=== PATIENT | female | born 1955 | race Hispanic/Latino ===

== ENCOUNTER 2021-03-10 08:33 | Emergency (ER) | payer OTHER ==
--- OUTSIDE RECORDS SUMMARY | 2021-03-10 08:37 | XMS REPORT | Continuity of Care Document ---
:1955 Author Organization [facility] t Address [address] [place] [address] [address] [place] [address] Care Team Providers Name Role Phone Ari Cerrato Attending Clinician [phone] JAMES HARDING Attending Clinician Unavailable Problems This patient has no known problems. Allergies, Adverse Reactions, Alerts Allergy Allergy Status Severity Reaction(s) Onset Inactive Treating Comm ents Source Name Type Date Date Clinician Guero Wheeler [facility] Medical reaction 00 Center s Social History Social Habit Start Date Stop Date Quantity Comments Source History SDOH [facility] - Alcohol Std Dr[facility] - Alcohol Binge Medical Kendra ter Sex Assigned At [facility] Tobacco use and 2019-10-14 2019-10-[address] [facility] - exposure 00:00:00 00:00:00 [facility] Alcohol intake 2019-10-14 2019-10-14 [facility] non-drinker of Medical Ce nter alcohol (finding) History SDOH 2019-10-14 2019-10-[address] [facility] - Alcohol Frequency 00:00:00 00:00:00 [facility] Smoking Status Start Date Stop Date Source Never smoker [facility] Medications This patient has no known medications. Procedures This patient has no known procedures. Plan of Care Planned Activity Planned Date Details Comments Source Future Scheduled 2020-05-24 INFLUENZA VACCINE (#1) [facility] Test 00:00:00 [code = INFLUENZA Medical Ce nter VACCINE (#1)] Future Scheduled 2019 PNEUMOCOCCAL 65+ YRS [facility] - Test 00:00:00 (1 of 1 - Medical Center [id number] PCV13) [code = PNEUMOCOCCAL 65+ YRS (1 of 1 - [id number] PCV13)] Future Scheduled 2009-02-[address] [facility] - Test 00:00:00 WELLNESS (YEAR 2 or Medical Center FIRST YEAR if no IPPE) [code = MEDICARE ANNUAL WELLNESS (YEAR 2 or FIRST YEAR if no IPPE)] Future Scheduled [address] [facility] - Test 00:00:00 (procedure) [code = [facility] [id number]] Future Scheduled [address] [facility] - Test 00:00:00 [facility] cervix (procedure) [code = 059975497] Future Scheduled [address] [facility] - Test 00:00:00 [facility] breast (procedure) [code = 414666515] Future Scheduled [address] [facility] - Test 00:00:00 [facility] colon (procedure) [code = 512699704] Encounters Start End Encounter Admission Attending Care Care Encounter Source Date/Time Date/Time Type Type Clinicians Facility Department ID 2020-11-29 2020-11-29 Outpatient Saqib [facility] [id number] 00:00:00 00:00:00 Josué [id number] Ari [id number] 2020-11-15 2020-11-15 Outpatient Saqib [facility] [id number] 00:00:00 00:00:00 Josué [id number] Ari [id number] 2020-11-08 2020-11-08 Outpatient U [facility] CAR [id number] [facility] 09:12:00 09:12:00 2020-10-17 2020-10-17 Outpatient Saqib [facility] [id number] 00:00:00 00:00:00 Josué [id number] Ari [id number] Results Test Description Test Time Test Comments Results Result Comments Source RAPID INFLUENZA A&B SCREEN 2019-10-14 10:58:00 Test Item Value Reference Range Interpretation Comme nts RAPID INFLUENZA A AG (BEAKER) (test code = 1622) Negative Negative, Inconclusive RAPID INFLUENZA B AG (BEAKER) (test code = 1623) Negative Negative, Inconclusive
--- NOTE | 2021-03-10 09:52 | EDPHYS ---
Physician Documentation [facility] Name: Katerine Izaguirre Age: 65 yrs Sex: Female : 1955 Arrival Date: 03/10/2021 Time: 08:37 Bed 15 Private MD: ED Physician Julio Cesar Cunha HPI: 03/10 09:51 This 65 yrs old Female presents to ER via Ambulatory with complaints of jr8 Shortness Of Breath, Runny Nose, Covid Exposure. 09:51 Onset: The symptoms/episode began/occurred gradually, 3 day(s) ago. Duration: The jr8 symptoms are continuous. The patient's shortness of breath has no apparent modifying factors. Associated signs and symptoms: Pertinent positives: non-productive cough. Severity of symptoms: At their worst the symptoms were mild in the emergency department the symptoms are unchanged. The patient has not experienced similar symptoms in the past. The patient has not recently seen a physician. Tested yesterday at [facility] for COVID and awaiting results. Historical: - Allergies: 09:08 No Known Allergies; ss - Immunization history:: Adult Immunizations up to date. - Social history:: Smoking status: Patient denies any tobacco usage or history of. ROS: 09:51 Eyes: Negative for injury, pain, redness, and discharge, Neck: Negative for injury, jr8 pain, and swelling, Cardiovascular: Negative for chest pain, palpitations, and edema, Abdomen/GI: Negative for abdominal pain, nausea, vomiting, diarrhea, and constipation, Back: Negative for injury and pain, MS/Extremity: Negative for injury and deformity, Skin: Negative for injury, rash, and discoloration, Neuro: Negative for headache, weakness, numbness, tingling, and seizure. 09:51 ENT: Positive for rhinorrhea, sinus congestion. 09:51 Respiratory: Positive for cough, Negative for shortness of breath, sputum production, wheezing. Exam: 09:51 Eyes: Pupils equal round and reactive to light, extra-ocular motions intact. Lids and jr8 lashes normal. Conjunctiva and sclera are non-icteric and not injected. Cornea within normal limits. Periorbital areas with no swelling, redness, or edema. ENT: Nares patent. No nasal discharge, no septal abnormalities noted. Tympanic membranes are normal and external auditory canals are clear. Oropharynx with no redness, swelling, or masses, exudates, or evidence of obstruction, uvula midline. Mucous membranes moist. Neck: Trachea midline, no thyromegaly or masses palpated, and no cervical lymphadenopathy. Supple, full range of motion without nuchal rigidity, or vertebral point tenderness. No Meningismus. Cardiovascular: Regular rate and rhythm with a normal S1 and S2. No gallops, murmurs, or rubs. Normal PMI, no JVD. No pulse deficits. Respiratory: Lungs have equal breath sounds bilaterally, clear to auscultation and percussion. No rales, rhonchi or wheezes noted. No increased work of breathing, no retractions or nasal flaring. Abdomen/GI: Soft, non-tender, with normal bowel sounds. No distension or tympany. No guarding or rebound. No evidence of tenderness throughout. Back: No spinal tenderness. No costovertebral tenderness. Full range of motion. Skin: Warm, dry with normal turgor. Normal color with no rashes, no lesions, and no evidence of cellulitis. MS/ Extremity: Pulses equal, no cyanosis. Neurovascular intact. Full, normal range of motion. Neuro: Awake and alert, GCS 15, oriented to person, place, time, and situation. Motor strength 5/5 in all extremities. Sensory grossly intact. Vital Signs: 09:04 BP 136 / 73; Pulse 98; Resp 16; Temp 97.0(TE); Pulse Ox 99% on R/A; Weight 105.69 kg; ss Height 5 ft. 3 in. (160.02 cm); Pain 0/10; 09:04 Body Mass Index 41.27 (105.69 kg, 160.02 cm) ss MDM: 09:25 Patient medically screened. 8 09:50 Data reviewed: vital signs, nurses notes, and as a result, I will discharge patient. jr8 Data interpreted: Pulse oximetry: on room air is 99 %. Interpretation: normal. Counseling: I had a detailed discussion with the patient and/or guardian regarding: the historical points, exam findings, and any diagnostic results supporting the discharge/admit diagnosis, the need for outpatient follow up, a family practitioner, to return to the emergency department if symptoms worsen or persist or if there are any questions or concerns that arise at home. ED course: Discussed with patient to treat symptomatically at this time now that we know she has negative results for COVID. Patient good with this and would return if something changes or worsens . Administered Medications: No medications were administered Disposition: 03/10/21 09:51 Discharged to Home. Impression: Acute upper respiratory infection, unspecified. - Condition is Stable. - Discharge Instructions: Upper Respiratory Infection, Adult, Cool Mist Vaporizer. - Medication Reconciliation Form, Thank You Letter, Antibiotic Education, Prescription Opioid Use form. - Follow up: Private Physician; When: As needed; Reason: Recheck today's complaints, Continuance of care, Re-evaluation by your physician. - Problem is new. - Symptoms have improved. Addendum: 03/11/2021 14:25 Co-signature as Attending Physician, Julio Cesar Cunha MD. m a2 Signatures: Shara Flower, RN RN ss Bhavin Salcido PA PA jr8 Julio Cesar Cunha MD MD ma2 Lalo Gee RN RN ll1 Corrections: (The following items were deleted from the chart) 03/10 10:04 09:51 03/10/2021 09:51 Discharged to Home. Impression: Acute upper respiratory ll1 infection, unspecified. Condition is Stable. Forms are Medication Reconciliation Form, Thank You Letter, Antibiotic Education, Prescription Opioid Use. Follow up: Private Physician; When: As needed; Reason: Recheck today's complaints, Continuance of care, Re-evaluation by your physician. Problem is new. Symptoms have improved. jr8
--- NOTE | 2021-03-10 09:52 | ER ---
Nurse's Notes [facility] Name: Katerine Izaguirre Age: 65 yrs Sex: Female : 1955 Arrival Date: 03/10/2021 Time: 08:37 Bed 15 Private MD: Diagnosis: Acute upper respiratory infection, unspecified Presentation: 03/10 09:04 Chief complaint: Patient states: cough, shortness of breath and runny nose that began a ss couple days ago. PT had covid test yesterday but does not have the results yet. Pt had an exposure to her daughter who currently has COVID. Coronavirus screen: Client denies travel out of the [place] in the last 14 days. Client presents with at least one sign or symptom that may indicate coronavirus-19. Standard/surgical mask placed on the client. Provider contacted for isolation considerations. Ebola Screen: Patient denies exposure to infectious person. Patient denies travel to an Ebola-affected area in the 21 days before illness onset. Initial Sepsis Screen: Does the patient meet any 2 criteria? No. Patient's initial sepsis screen is negative. Does the patient have a suspected source of infection? No. Patient's initial sepsis screen is negative. Risk Assessment: Do you want to hurt yourself or someone else? Patient reports no desire to harm self or others. Onset of symptoms was March 07, 2021. 09:04 Method Of Arrival: Ambulatory ss 09:04 Acuity: GARIMA 4 ss Historical: - Allergies: 09:08 No Known Allergies; ss - Immunization history:: Adult Immunizations up to date. - Social history:: Smoking status: Patient denies any tobacco usage or history of. Screenin:03 Abuse screen: Denies threats or abuse. Nutritional screening: No deficits noted. ll1 Tuberculosis screening: No symptoms or risk factors identified. Fall Risk None identified. Total Aguirre Fall Scale indicates No Risk (0-24 pts). Assessment: 10:02 General: Appears in no apparent distress. Behavior is calm, cooperative, appropriate ll1 for age. Pain: Denies pain. Neuro: No deficits noted. Cardiovascular: Reports shortness of breath, Heart tones S1 S2 Capillary refill < 3 seconds Clubbing of nail beds is absent Patient's skin is warm and dry. Rhythm is regular. Respiratory: Reports shortness of breath cough that is Airway is patent Trachea midline Respiratory effort is even, unlabored, Respiratory pattern is regular, symmetrical, Breath sounds are clear bilaterally. Onset: The symptoms/episode began/occurred the patient has mild shortness of breath. GI: No deficits noted. : No deficits noted. EENT: Nares are clear Reports nasal congestion. Vital Signs: 09:04 BP 136 / 73; Pulse 98; Resp 16; Temp 97.0(TE); Pulse Ox 99% on R/A; Weight 105.69 kg; ss Height 5 ft. 3 in. (160.02 cm); Pain 0/10; 09:04 Body Mass Index 41.27 (105.69 kg, 160.02 cm) ED Course: 08:37 Patient arrived in ED. bp1 09:08 Triage completed. ss 09:08 Arm band placed on right wrist. 09:25 Bhavin Salcido PA is PHCP. jr8 09:25 Julio Cesar Cunha MD is Attending Physician. jr8 09:46 Lalo Gee, KERI is Primary Nurse. ll1 10:03 No provider procedures requiring assistance completed. Patient did not have IV access ll1 during this emergency room visit. 10:04 Patient has correct armband on for positive identification. Bed in low position. Call ll1 light in reach. Side rails up X 1. Cardiac monitoring not applicable on this patient. Administered Medications: No medications were administered Outcome: 09:51 Discharge ordered by . jr8 10:03 Discharged to home ambulatory. ll1 10:03 Condition: stable 10:03 Discharge instructions given to patient, Instructed on discharge instructions, follow up and referral plans. Demonstrated understanding of instructions, follow-up care. 10:04 Patient left the ED. ll1 Signatures: Shara Flower, RN RN Bhavin Salcido PA PA jr8 Lalo Gee, KERI RN ll1 Katie Kruse bp1
[2021-03-10 10:09] VITALS: BP 136/73; TEMP 97; O2SAT 99
== END 2021-03-10 10:04 | disposition home or self-care (01) ==
LOC: ER 08:33
DX: J06.9 Acute upper respiratory infection, unspecified (principal); Z20.822 Contact with and (suspected) exposure to COVID-19

== ENCOUNTER 2021-03-15 08:09 | Emergency (ER) | payer OTHER ==
--- OUTSIDE RECORDS SUMMARY | 2021-03-15 08:12 | XMS REPORT | Continuity of Care Document ---
:1955 Author Organization [facility] t Address [address] [place] [address] Care Team Providers Name Role Phone Gilbert Gaytan MD Attending Clinician Ari Cerrato Attending Clinician [phone] Ximena Attending Clinician Lavell Casillas Attending Clinician JAMES HARDING Attending Clinician Unavailable Ximena Admitting Clinician Problems Condition Condition Condition Status Onset Resolution Last Treating Co mments Source Name Details Category Date Date Treatment Clinician Date CHEST PAIN Diagnosis Active 2020-11-15 Memoria 2-14 21:41:00 l CHEST 00:00: Mateus PAIN 00 Active 11/06/2020 [facility] D32.0 - Diagnosis Active 2020-06-06 Me moria BENIGN -18 08:53:00 l NEOPLASM D32.0 - 00:01: Delia nn 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 OPID [place] At risk Problem Active 2020-11-12 Pako bruce for 22:45:39 l negative At risk Delia nn response for to negative medication response (finding) to medication (finding) Active Problem 11/12/2020 [facility] History of Problem Active 2020-11-12 M emoria - TIA 22:45:39 l (context-d History Her garcia ependent of - TIA category) (context-d ependent category) Active Problem 11/12/2020 [facility] Hyperlipid Problem Active 2020-11-12 M emoria emia 22:45:39 l (disorder) Nathaniel n Hyperlipid emia (disorder) Active Problem 11/12/2020 [facility] Morbid Problem Active 2020-11-12 Memor ia obesity 22:45:39 l (disorder) Morbid Herm lana obesity (disorder) Active Problem 11/12/2020 [facility] Neoplasm Problem Active 2020-11-12 Mem oria of 22:45:39 l meninges Neoplasm Herm lana (disorder) of meninges (disorder) Active Problem 11/12/2020 [facility] Osteoarthr Problem Active 2020-11-12 M emoria itis of 22:45:39 l knee Mateus (disorder) Osteoarthr itis of knee (disorder) Active Problem 11/12/2020 [facility] Diabetes Problem Active 2020-11-12 Mem oria mellitus 22:45:39 l type 2 Diabetes Nathaniel n (disorder) mellitus type 2 (disorder) Active Problem 11/12/2020 [facility] Allergies, Adverse Reactions, Alerts Allergy Allergy Status Severity Reaction(s) Onset Inactive Treating Comm ents Source Name Type Date Date Clinician Guero Wheeler Active [facility] e ty to 10[facility]14 [facility] - adverse [facility]: Medical reaction 00 Center s Antivert Antivert Active Severe Memori a <sup>1</ <sup>1</ l sup> sup> Mateus Social History Social Habit Start Date Stop Date Quantity Comments Source History SDOH [facility] SDOH [facility] Binge [facility] Sex Assigned At [facility] [place] Tobacco use and 2019-10-14 2019-10-14 Never used [facility] Marcia kes - exposure 00:00:00 00:00:00 [facility] Alcohol intake 2019-10-14 2019-10-14 [facility]00 non-drinker of Medical Ce nter alcohol (finding) History SDGA 2019-10-14 2019-10-14 1 [facility] - Alcohol Frequency 00:00:00 00:00:00 [facility] Center Smoking Status Start Date Stop Date Source Social History 2020-11-06 21:36:02 2020-11-06 21:36:02 [facility] Never smoker [facility] Medications Ordered Filled Start Stop Current Ordering Indication Dosage Frequency Signature Comments Components Source Medication Medication Date Date Medication? Clinician (SIG) Name Name atorsharifa Yes 80 mg = 1 M emoria n 80 mg 2-18 tab, PO, l oral tablet 18:48: Bedtime, # Mateus 00 30 tab, 0 Refill(s), [id number], 160.02, cm, 11/06/20 15:33:00 EPIC INTERFACE ANALYST, Height, 100.199, kg, 11/06/20 15:33:00 EPIC INTERFACE ANALYST, Weight Aspirin 81 Yes 81 mg = 1 Me moria MG Enteric 2-18 tab, PO, l Coated 18:48: Daily, # Mateus Tablet 00 30 tab, 0 Refill(s), [id number], 160.02, cm, 11/06/20 15:33:00 EPIC INTERFACE ANALYST, Height, 100.199, kg, 11/06/20 15:33:00 EPIC INTERFACE ANALYST, Weight pantoprazol Yes 40 mg = 1 M emoria e 40 mg 2-18 tab, PO, l oral 18:46: Before [place] enteric 00 Dinner, # coated 30 tab, 2 tablet Refill(s), [id number], 160.02, cm, 11/06/20 15:33:00 EPIC INTERFACE ANALYST, Height, 100.199, kg, 11/06/20 15:33:00 EPIC INTERFACE ANALYST, Weight calcium Yes 500 mg = 1 Pako bruce carbonate 2-18 tab, CHEW, l 500 mg (200 18:46: TID, PRN He rmann mg 00 Indigestio elemental n, # 30 calcium) tab, 0 oral tablet Refill(s), [id number], 160.02, cm, 11/06/20 15:33:00 EPIC INTERFACE ANALYST, Height, 100.199, kg, 11/06/20 15:33:00 EPIC INTERFACE ANALYST, Weight calcium No 500 mg = 1 Pako bruce carbonate 2-18 tab, CHEW, l 500 mg (200 18:35: TID, PRN He rmann mg 00 Indigestio elemental n, 0 calcium) Refill(s) oral tablet atorvastati No 80 mg = 1 M emoria n 80 mg 2-18 tab, PO, l oral tablet 18:35: Bedtime, # [place] 00 30 tab, 0 Refill(s) Aspirin 81 No 81 mg = 1 Me moria MG Enteric 2-18 tab, PO, l Coated 18:35: Daily, # [place] Tablet 00 30 tab, 0 Refill(s) Insulin No 8 unit, Memoria Glargine 2-18 0.08 mL, l 15:00: Route: Mateus 00 SUB-Q, Drug form: SOLN, Q12H, Dosing Weight 100.199, kg, Start date: 11/10/20 9:00:00 EPIC INTERFACE ANALYST, Duration: 30 day, Stop date: 12/09/20 21:00:00 CDT, 0 Adenosine No Notes: For Me moria 2-17 diagnostic l 18:26: use only. Mateus 00 (Same as: Adenoscan) MEDICATION WASTE Product Size: 90 mg Product Wasted: ___ mg Insulin No 5 unit, Memoria Glargine 2-17 0.05 mL, l 15:00: Route: [place] SUB-Q, Drug form: SOLN, Q12H, Dosing Weight 100.199, kg, Start date: 11/09/20 9:00:00 EPIC INTERFACE ANALYST, Duration: 30 day, Stop date: 12/08/20 21:00:00 CDT, 0 Protonix No Notes: Memoria 2-15 Tablet l 22:30: should not Mateus 00 be chewed or crushed. (Same as: Protonix) Acetaminoph No Notes: Do M emoria en 2-15 not exceed l 17:23: 4 gm/day. Mateus 00 (Same as: Tylenol) Tums No Notes: Memoria 2-15 (Same As: l 17:02: Tums) Calcium Carbonate 500 mg = 200 mg elemental calcium Dose = mg calcium carbonate ( mg elemental calcium) POLYETHYLEN No Notes: Pako bruce E GLYCOL 2-15 Dissolve l 3350 15:00: in 8 oz of water or juice. (Same as: Miralax) Aspirin No Notes: Do Memor ia 2-15 not crush l 15:00: or chew. Mateus (Same As: Ecotrin) heparin No Notes: Memoria 2-15 porcine l 06:00: heparin Melatonin 3 No Notes: Pako bruce MG Extended 2-15 (Same as: l Release 05:55: Melatonin) Herm lana Tablet sennosides, No Notes: Pako bruce ASSISTED 2-15 (Same as: l 03:00: Senokot) Mateus atorvastati No Notes: Pako bruce n 2-15 Same as l 03:00: Lipitor Insulin No 10 unit, Memori a Glargine 2-15 0.1 mL, l 03:00: Route: [place] 00 SUB-Q, Drug form: SOLN, Q12H, Dosing Weight 100.199, kg, Start date: 11/06/20 21:00:00 EPIC INTERFACE ANALYST, Duration: 30 day, Stop date: 12/06/20 9:00:00 CDT, 0 Humalog Mix No 18 unit, Me moria 75/25 Pen 2-14 Route: l 23:00: SUB-Q, Drug form: SUSP, BID, Dosing Weight 100.199, kg, Start date: 11/06/20 17:00:00 EPIC INTERFACE ANALYST, Duration: 30 day, Stop date: 12/06/20 9:00:00 CDT pantoprazol No 20 mg, Pako bruce e 2-14 Route: PO, l 22:30: Drug form: ECTAB, BID-Before Meals, Dosing Weight 100.199, kg, Start date: 11/06/20 16:30:00 EPIC INTERFACE ANALYST, Duration: 30 day, Stop date: 12/06/20 7:30:00 CDT Dextrose No 12.5 gm, Memor ia 50% Syringe 2-14 25 mL, l (D50W) 22:28: Route: [place] 00 IVP, Drug Form: INJ, Dosing Weight 100.199, kg, PRN, PRN Blood Glucose Results, Start date: 11/06/20 16:28:00 EPIC INTERFACE ANALYST, Duration: 30 day, Stop date: 12/06/20 17:27:00 CDT, 0 Glucagon No 1 mg, Memoria 2-14 Route: IM, l 22:28: Drug form: Mateus 00 PDR/INJ, PRN, Dosing Weight 100.199, kg, PRN Blood Glucose Results, Start date: 11/06/20 16:28:00 EPIC INTERFACE ANALYST, Duration: 30 day, Stop date: 12/06/20 17:27:00 CDT, 0 Insulin No Notes: Memoria Lispro 2-14 (Same as: l 22:28: Humalog) [place] 00 Roll in palms of hands gently; Do not shake vigorously . WASTE: F/P - Black; E - Municipal Trash Bin Stable for 28 days at room temperatur e. Expires in days from ____Date Aspirin 325 No 325 mg, Mem oria MG Oral 2-14 Route: PO, l Tablet 22:25: Drug form: Delia nn 00 TAB, ONCE, Dosing Weight 100.199, kg, Start date: 11/06/20 16:25:00 EPIC INTERFACE ANALYST, Stop date: 11/06/20 16:25:00 EPIC INTERFACE ANALYST 3 ML Yes 18 unit, Memoria Insulin 2-14 SUB-Q, l Lispro 25 22:01: BID, 0 Nathaniel n UNT/ML / 00 Refill(s) Insulin, Protamine Lispro, Human 75 UNT/ML Prefilled Syringe [Humalog Mix 75/25] rosuvastati No 10 mg = 1 M emoria n 10 MG 2-14 cap, PO, l Oral 22:01: Daily, 0 [place] Capsule 00 Refill(s) Dextrose 2021-0 No 12.5 gm, Memor ia 50% Syringe 2-14 25 mL, l (D50W) 21:35: Route: [place] IVP, Drug Form: INJ, Dosing Weight 100.199, kg, PRN, PRN Blood Glucose Results, Start date: 11/06/20 15:35:00 EPIC INTERFACE ANALYST, Duration: 30 day, Stop date: 12/06/20 16:34:00 CDT, 0 Glucagon 2020-0 No 1 mg, Memoria 2-14 Route: IM, l 21:35: Drug form: Mate[place] 00 PDR/INJ, PRN, Dosing Weight 100.199, kg, PRN Blood Glucose Results, Start date: 11/06/20 15:35:00 EPIC INTERFACE ANALYST, Duration: 30 day, Stop date: 12/06/20 16:34:00 CDT, 0 Aspirin Low 2020-0 Yes 81 mg = 1 M emoria Dose 81 mg 3-31 tab, CHEW, l oral 19:03: Daily, 0 Mateus tablet, 00 Refill(s) chewable meloxicam 2020-0 Yes 15 mg = 1 Mem oria 15 mg oral 3-31 tab, PO, l tablet 19:03: Daily, PRN Delia nn 00 Pain rosuvastati 2020-0 Yes 40 mg = 1 M emoria n 40 mg 3-31 tab, PO, l oral tablet 19:03: Bedtime, 0 [place] 00 Refill(s) 3 ML 2020-0 Yes SUB-Q, Memoria insulin 3-31 BID, 14u l human, 19:03: in the am Nathaniel n isophane 70 00 and 10u at UNT/ML / night, 0 Regular Refill(s) Insulin, Human 30 UNT/ML Pen Injector [Novolin] lisinopril 2020-0 Yes 1.25 mg = Me moria 2.5 mg oral 3-31 0.5 tab, l tablet 19:03: PO, Daily, Delia nn 00 0 Refill(s) Metformin 2020-0 Yes 1,000 mg = Me moria hydrochlori 3-31 1 tab, PO, l de 1000 MG 19:03: BID-Meals, H ermann Oral Tablet 00 0 Refill(s) 0.5 ML 2020-0 Yes 1.5 mg, Memoria dulaglutide 3-31 SUB-Q, l 3 MG/ML 19:03: once a [place] Prefilled 00 week, 0 Syringe Refill(s) [Trulicity] Acetaminoph 2019-0 Yes 1 cap, PO, Memoria en 300 MG / 3-31 BID, PRN l butalbital 19:03: Pain, 0 Herm lana 50 MG / 00 Refill(s) Caffeine 40 MG Oral Capsule Vital Signs Vital Name Observation Time Observation Value Comments Source Systolic (mm Hg) 2020-11-10 20:00:00 Pako rial [place] Diastolic (mm Hg) 2020-11-10 20:00:00 Mem orial [place] Respitory Rate 2020-11-10 20:00:00 Memori al [place] Systolic (mm Hg) 2020-11-10 19:00:00 Pako rial [place] Diastolic (mm Hg) 2020-11-10 19:00:00 Mem orial [place] Respitory Rate 2020-11-10 19:00:00 Memori al [place] Systolic (mm Hg) 2020-11-10 18:00:00 Pako rial [place] Diastolic (mm Hg) 2020-11-10 18:00:00 Mem orial [place] Respitory Rate 2020-11-10 18:00:00 Memori al [place] Temperature Oral (F) 2020-11-10 11:12:00 97.1 F Memorial [place] Temperature Oral (F) 2020-11-10 05:17:00 97.1 F Memorial [place] Temperature Oral (F) 2020-11-10 02:00:00 98.4 F [facility] [place] Systolic (mm Hg) 2020-11-07 09:00:00 Pako rial [place] Diastolic (mm Hg) 2020-11-07 09:00:00 Mem orial [place] Systolic (mm Hg) 2020-11-07 08:00:00 Pako rial [place] Diastolic (mm Hg) 2020-11-07 08:00:00 Mem orial [place] Systolic (mm Hg) 2020-11-07 06:00:00 Pako rial [place] Diastolic (mm Hg) 2020-11-07 06:00:00 Mem orial [place] Temperature Oral (F) 2020-11-07 03:00:00 96.8 F Memorial [place] Respitory Rate 2020-11-07 00:52:00 Memori al [place] Respitory Rate 2020-11-06 23:00:00 Memori al [place] Respitory Rate 2020-11-06 22:00:00 Memori al [place] Height 2020-11-06 21:33:00 160.02 cm [facility] [place] Weight 2020-11-06 21:33:00 [facility] [place] BMI Calculated 2020-11-06 21:33:00 Memori al [place] Systolic (mm Hg) 2019-12-22 18:42:00 Pako rial [place] Diastolic (mm Hg) 2019-12-22 18:42:00 [facility] orial [place] Heart Rate 2019-12-22 18:42:00 [facility] [place] Temperature Oral (F) 2019-12-22 18:42:00 98.3 F [facility] [place] Height 2019-12-22 18:42:00 153.67 cm [facility] [place] Weight 2019-12-22 18:42:00 [facility] Mate[place] BMI Calculated 2019-12-22 [facility]:42[facility]00 [facility] [place] Procedures Procedure Date / Time Performing Clinician Source Performed Placement of 2014-09-23 06:00:00 [facility] Her garcia stent<sup>1</sup> Repair of 2011-11-22 06:00:00 [facility] Her garcia clavicle<sup>2</sup> Cholecystectomy 2009-05-24 05:00:00 [facility] Her garcia Colonoscopy<sup>3</sup> 2009-05-24 05:00:00 Pakobright rodriguez Mate[place] Fracture of 2008-03-23 05:00:00 [facility] Her garcia ankle<sup>4</sup> Total hysterectomy 1999-10-24 06:[facility] Planned Activity Planned Date Details Comments Source Future Scheduled 2021-05-[address] [facility] - Test 00:00:00 (Season Ended) [code = [facility] INFLUENZA VACCINE (Season Ended)] Future Scheduled 2020-09-[address] [facility] - Test 00:00:00 (12+) [code = Medical Center DEPRESSION SCREENING (12+)] Future Scheduled 2019 PNEUMOCOCCAL 65+ YRS [facility] - Test 00:00:00 (1 of 1 - Medical Center [id number] [id number]) [code = PNEUMOCOCCAL 65+ YRS (1 of 1 - [id number] PCV13)] Future Scheduled 2009-02-[address] [facility] [facility] Test 00:00:00 WELLNESS (YEAR 2 or Medical Center FIRST YEAR if no IPPE) [code = MEDICARE ANNUAL WELLNESS (YEAR 2 or FIRST YEAR if no IPPE)] Future Scheduled 2004 SHINGLES VACCINES ([address] [facility] - Test 00:00:00 of 2) [code = SHINGLES Medic al Center VACCINES (1 of 2)] Future Scheduled 1973 DTAP/TDAP/TD VACCINES [facility] 00:00:00 (1 - Tdap) [code = Medical C enter DTAP/TDAP/TD VACCINES (1 - Tdap)] Future Scheduled 1972 HEPATITIS C SCREENING [facility] 00:00:00 [code = HEPATITIS C Medical Center SCREENING] Future Scheduled 1966 COVID-19 VACCINE (1) [facility] - Test 00:00:00 [code = COVID-[address] VACCINE (1)] Future Scheduled [address] [facility] Test 00:00:00 malignant neoplasm of Medica l Center breast (procedure) [code = 632108793] Future Scheduled [address] [facility] Test 00:00:00 malignant neoplasm of [facility] Center colon (procedure) [code = 581617222] Encounters Start End Encounter Admission Attending Care Care Encounter Source Date/Time Date/Time Type Type Clinicians Facility Department ID 2021-02-28 2021-02-28 Office TEJ Gaytan [id number] 08:54:07 13:56:57 Visit Genaro AMBULATOR [id number] Gilbert Y [id number] 2020-11-29 2020-11-29 Outpatient Saqib [facility] [id number] 00:00:00 00:00:00 Josué [id number] Ari [id number] 2020-11-15 2020-11-15 Outpatient Saqib [facility] [id number] 00:00:00 00:00:00 Josué [id number] Ari [id number] 2020-11-08 2020-11-10 Outpatient Ximena [facility] [id number] 09:12:00 15:10:00 Uday 45 2020-11-08 2020-11-08 Outpatient [facility] CAR [id number] [facility] 09:12:00 09:12:00 2020-11-06 2020-11-06 Outpatient Ximena [facility] [id number] 15:12:00 15:12:00 Uday 45 2020-10-17 2020-10-17 Outpatient Saqib [facility] [id number] 00:00:00 00:00:00 Josué [id number] Ari [id number] 2020-03-22 2020-03-22 Outpatient [facility] [id number] 14:30:00 14:30:00 , Danilo 01 Lavell 2019-12-23 2019-12-24 Outpatient [facility] [id number] 06:57:50 06:57:50 2019-12-22 2019-12-22 Outpatient [facility] [id number] 14:00:00 23:59:59 , Danilo 00 Lavell Results Test Description Test Time Test Comments Results Result Comments Source CHEM PANEL 2020-11-10 2.2 [facility] Delia nn 06:05:00 CHEM PANEL 2020-11-10 153 [facility] Delia nn 06:05:00 CHEM PANEL 2020-11-10 10 [facility] Delia nn 06:05:00 CHEM PANEL 2020-11-10 0.71 [facility] Delia nn 06:05:00 CHEM PANEL 2020-11-10 141 [facility] Delia nn 06:05:00 CHEM PANEL 2020-11-10 3.9 [facility] Delia nn 06:05:00 CHEM PANEL 2020-11-10 108 [facility] Delia nn 06:05:00 CHEM PANEL 2020-11-10 26 [facility] Delia nn 06:05:00 CHEM PANEL 2020-11-10 8.3 [facility] Delia nn 06:05:00 CHEM PANEL 2020-11-10 10.9 [facility] Delia nn 06:05:00 CHEM PANEL 2020-11-10 88 [facility] Delia nn 06:05:00 CHEM PANEL 2020-11-10 3.6 [facility] Delia nn 06:05:00 HEMATOLOGY 2020-11-10 46.2 [facility] Delia nn 06:05:00 HEMATOLOGY 2020-11-10 39.1 [facility] Delia nn 06:05:00 HEMATOLOGY 2020-11-10 9.5 [facility] Delia nn 06:05:00 HEMATOLOGY 2020-11-10 4.5 [facility] Delia nn 06:05:00 HEMATOLOGY 2020-11-10 0.7 [facility] Delia nn 06:05:00 HEMATOLOGY 2020-11-10 4.2 [facility] Delia nn 06:05:00 HEMATOLOGY 2020-11-10 3.6 [facility] Delia nn 06:05:00 HEMATOLOGY 2020-11-10 0.9 [facility] Delia nn 06:05:00 HEMATOLOGY 2020-11-10 0.4 [facility] Delia nn 06:05:00 HEMATOLOGY 2020-11-10 0.1 [facility] Delia nn 06:05:00 HEMATOLOGY 2020-11-10 06:05:00 Test Item Value Reference Range Interpretation Comme nts PT (test code = PT) 12.2 s 12.0-14.7 [facility] LqxjsejZIRXDFLOEB0599-18-86 06:05:00 Test Item Value Reference Range Interpretation Comments INR (test code = INR) 0.91 1 0.85-1.17 [facility] YrfbgiyLNFMLEMCQZ2050-08-98 06:05:00 Test Item Value Reference Range Interpretation Comments PTT (test code = PTT) 56.8 s 22.9-35.8 [facility] NyvywabLNHNYWQCPR3581-94-87 06:05:009.1[facility] 2020-11-10 06:05:003.90[facility] ClisuyqNTVMJSPHWY6470-50-21 06:05:0011.8[facility] MojtofxNZZEYHYZHK2697-09-52 06:05:0035.4[facility] WsuafagBAVXROUJRO5022-89-92 06:05:0090.8[facility] ColjhhgCUJBQTEHFO1652-69-75 06:05:00 Test Item Value Reference Range Interpretation Comments MCH (test code = MCH) 30.3 pg 27.0-31.0 [facility] AbvrufeRAJCJICAEO9764-49-59 06:05:0033.4[facility]annHEMATOLOGY 2020-11-10 06:05:0013.7[facility] HjmuqniKMEUAFJALC8485-97-08 06:05:74347Lwvxyuem PrbgiyoSHFPSMONCL6960-15-24 06:05:008.7[facility] HermannPARATHYROID PROFILE 2020-11-10 06:05:001.13[facility] HermannPARATHYROID VJYOPWX1178-11-14 06:05:00 1.11[facility] NmnqdgpQBBCYSFVRF1086-63-71 06:29:003.7[facility]annHEMATOLOGY 2020-11-09 06:29:000.8[facility] ZnrpcasNJJYLTCZXJ6768-96-43 06:29:000.4[facility] AipitqyJJFMIQBNDV6559-46-07 06:29:000.1[facility] CdnuzbsKQVPLMBDQV9821-57-07 06:29:00 Test Item Value Reference Range Interpretation Comments PT (test code = PT) 12.4 s 12.0-14.7 Memorial RvzfzycOZOXQAYSBX6787-62-95 06:29:00 Test Item Value Reference Range Interpretation Comments INR (test code = INR) 0.93 1 0.85-1.17 [facility] NiwjcpeSDDFDJHFNW0453-59-04 06:29:00 Test Item Value Reference Range Interpretation Comments PTT (test code = PTT) 58.7 s 22.9-35.8 Memorial EkjpbkoYUULAIZKJK4657-06-00 06:29:008.5[facility]annHEMATOLOGY 2020-11-09 06:29:003.98[facility] LiplvhfMBTOKCDOXD7892-85-98 06:29:0011.9[facility] OpnmzgpDDWYGFFOZV6236-59-16 06:29:0036.3[facility] VuwujcqLLFVRLDSWB2685-91-94 06:29:0091.2[facility] CbrfebtAPWOVRUABR7572-97-89 06:29:00 Test Item Value Reference Range Interpretation Comments MCH (test code = MCH) 30.0 pg 27.0-31.0 [facility] JqfygchFAJJIGCRBU5867-52-33 06:29:0032.9[facility]ann[facility]MATOLOGY 2020-11-09 06:29:0013.7[facility] GmsnuflVZUTFLAOHV2041-37-21 06:29:34388Krmvfsjm ZabjugpAPNQGVHBHD0022-81-88 06:29:008.8[facility] HermannPARATHYROID PROFILE 2020-11-09 06:29:001.09[facility] HermannPARATHYROID CGVCRFI6711-06-73 06:29:00 1.09[facility] HermannCHEM LSIKK6153-80-12 06:29:003.5[facility] HermannCHEM PANEL 2020-11-09 06:29:71568Ntoqjfsa HermannCHEM GRMMP7858-25-15 06:29:0012[facility] HermannCHEM OCDVB4591-50-37 06:29:000.73[facility] HermannCHEM BSCBI0944-28-86 06:29:24591Gmztwhfv HermannCHEM XLFZD6120-54-66 06:29:004.1[facility] HermannCHEM EFUXL8890-43-35 06:29:96275Smmefsfe HermannCHEM EICGU9466-04-92 06:29:0026 [facility]annCHEM JBTBT4507-97-77 06:29:008.6[facility] HermannCHEM PANEL 2020-11-09 06:29:0010.1[facility] HermannCHEM YVKSP4963-65-34 06:29:0086[facility] HermannCHEM OFVKU7879-57-49 06:29:002.3[facility] IkkkikrTUGISQOYWK9876-32-93 06:29:0041.6[facility] GwydpilESVGVPJVDS6321-91-70 06:29:0043.5[facility] [place] CAFAPLQDYZ3281-18-43 06:29:009.5[facility] EduxykbVXKNMGDXWB8658-34-40 06:29:004.3 Memorial KeamxkbODLPVZEXQB0493-68-58 06:29:001.1[facility] HermannHEMATOLOGY 2020-11-09 06:29:003.6[facility] HermannCHEM NZBNK2289-70-57 06:07:39313Ucalgcmt HermannCHEM MJUWQ2093-16-45 06:07:0014[facility] HermannCHEM FQKRT4924-09-21 06:07:000.77[facility] HermannCHEM ZKSLJ8671-02-25 06:07:56615Ijewqdul HermannCHEM BDYES5332-88-45 06:07:004.1[facility] HermannCHEM QTYCN7767-29-01 06:07:70128 [facility] HermannCHEM PYHIY0579-46-37 06:07:0026[facility] HermannCHEM PANEL 2020-11-08 06:07:008.3[facility] HermannCHEM NUZCY6974-78-73 06:07:0010.1[facility] HermannCHEM RWBMK3875-74-04 06:07:0081[facility] HermannCHEM QJBKG2410-95-43 06:07:002.5[facility] HermannCHEM RUJYU3604-82-46 06:07:003.5[facility] [place] MAFRKLOYTU5126-46-41 06:07:0038.1[facility] KxftepiHYXMBKXEPZ1665-86-35 06:07:00 47.4[facility] DvfkslbBUMCWWUXRL6309-55-67 06:07:008.9[facility] HermannHEMATOLOGY 2020-11-08 06:07:004.9[facility] UazysgmOPEVEKKATG1966-61-09 06:07:000.7[facility] CqmboezCPFBRWOPVN6369-84-96 06:07:003.1[facility] UtuwozaDTTFGFWVLO3451-00-76 06:07:003.8[facility] GxqdefnULYCQXYCKO7091-28-63 06:07:000.7[facility] Matesu IDSDHXIAEX2056-08-31 06:07:000.4[facility] ThskmycWLJTIOVTCF5529-00-82 06:07:000.1 [facility] HgbrfgpEEDIHSLHNC3580-01-55 06:07:008.0[facility] HermannHEMATOLOGY 2020-11-08 06:07:004.11[facility] HouelqjBNNTUEHYJZ0424-62-06 06:07:0012.6[facility] EfcyckvSZVDADWKKT1755-64-30 06:07:0037.2[facility] HtnlhcuGLUWGSBQBC6019-95-71 06:07:0090.4[facility] RtcrsbqFYLSJKVHVD2754-35-37 06:07:00 Test Item Value Reference Range Interpretation Comments MCH (test code = MCH) 30.6 pg 27.0-31.0 [facility] RokovqjEWPKUKVKPS2396-28-06 06:07:0033.8[facility] HermannHEMATOLOGY 2020-11-08 06:07:0013.3[facility] QvqiqwrSNALGFJVFN5590-58-89 06:07:79255Xmlknmtc JbegmwjAAKHYPCBZE7981-20-94 06:07:008.6[facility] HilswxmNWDJWDIYDK2562-23-19 06:07:00 Test Item Value Reference Range Interpretation Comments PT (test code = PT) 12.5 s 12.0-14.7 [facility] TsuwnpvBQEJBGGESH3545-74-15 06:07:00 Test Item Value Reference Range Interpretation Comments INR (test code = INR) 0.94 1 0.85-1.17 [facility] RmlkhizPDPNIBKMOQ2597-86-89 06:07:00 Test Item Value Reference Range Interpretation Comments PTT (test code = PTT) 47.7 s 22.9-35.8 [facility] HermannPARATHYROID RPHBSCE7440-14-32 06:07:001.14[facility] PARATHYROID PQXTKPM6414-10-62 06:07:001.12[facility] HermannCARDIAC ENZYMES 2020-11-07 17:38:00<0.02[facility] AymzanrBJXAILFCCW5862-14-57 22:05:00Not Detected (11/06/20 4:05 PM)[facility]annCARDIAC DJTKMTV4634-97-06 21:44:0018 [facility]annCARDIAC MEGOERB0556-01-95 21:44:00<0.02[facility] HermannCHEM UFHNJ8614-76-38 21:44:65660Zktsbgvk HermannCHEM PCMQA3652-89-16 21:44:0012 [facility]annCHEM ZBHAD9545-91-09 21:44:000.73[facility] HermannCHEM PANEL 2020-11-06 21:44:04666Cgxxmruo HermannCHEM WAHXN0137-01-54 21:44:004.2[facility] HermannCHEM GDWYM9746-51-77 21:44:29522Mrzsiwje HermannCHEM GEVVD1742-32-97 21:44:0026[facility] HermannCHEM LBXOE2173-86-52 21:44:008.2[facility] HermannCHEM HRDGE1806-98-13 21:44:009.2[facility] HermannCHEM NLKQU8109-47-26 21:44:0086 [facility]annCHEM TVUJE2885-46-54 21:44:002.3[facility] HermannCHEM PANEL 2020-11-06 21:44:003.5[facility] HermannCHEM XACTR0483-88-75 21:44:006.6[facility] HermannCHEM [id number] 21:44:003.3[facility]annCHEM [id number] 21:44:003.3[facility]annCHEM [id number] 21:44:00 Test Item Value Reference Range Interpretation Comments A/G Ratio (test code = A/G Ratio) 1.0 1 0.7-1.6 [facility] [id number] 21:44:0020[facility]annCHEM PANEL 2020-11-06 21:44:0015[facility]annCHEM [id number] 21:44:0086[facility]annCHEM [id number] 21:44:000.3[facility]annCHEM [id number] 21:44:00<0.1[facility] DwqxmdiSCNPCSNEFK0815-62-48 21:44:008.4[facility] [place] [id number] 21:44:004.17[facility] WkbezmnLBYWLHPBWV2169-59-29 21:44:00 12.5[facility] UfvevmeDMPGPJNMTF6627-87-15 21:44:0037.6[facility] HermannHEMATOLOGY 2020-11-06 21:44:0090.3[facility] RbjjtpgGKGXZWCTGF6290-56-18 21:44:00 Test Item Value Reference Range Interpretation Comments MCH (test code = MCH) 29.9 pg 27.0-31.0 [facility] QammknxDHQPJSCXFN8702-61-77 21:44:0033.1[facility]annHEMATOLOGY 2020-11-06 21:44:0013.9[facility] XdxoxknRGTZOTDCKR9636-66-26 21:44:22781Tgkwdqbg KtchpwcIULSWCSDMI9252-44-12 21:44:007.8[facility] WboknivOMQLVMWJIJ1066-70-00 21:44:00 Test Item Value Reference Range Interpretation Comments PT (test code = PT) 12.0 s 12.0-14.7 [facility] MdakwzkRTPNMACAQO5385-32-12 21:44:00 Test Item Value Reference Range Interpretation Comments PTT (test code = PTT) 34.8 s 22.9-35.8 [facility] JjjpflsPBYULQXNQK4012-89-01 21:44:00 Test Item Value Reference Range Interpretation Comments INR (test code = INR) 0.89 1 0.85-1.17 [facility] GageybfCRSDUOXPCO7737-91-78 21:44:0049.1[facility]annHEMATOLOGY 2020-11-06 21:44:0038.7[facility] EyuzsivHBWISWCPZF9932-15-62 21:44:007.1[facility] NjdpaneSEUFQGVISQ0803-32-00 21:44:003.8[facility] IwrmegoCDNGHMANEC5210-44-76 21:44:001.3[facility] NlpkqrwVDSCNNZKDR3983-73-84 21:44:004.1[facility] [place] [facility] DGYFCWWXLU4530-80-63 21:44:003.2[facility] YteqvlmGHBXBRRNBX0348-78-28 21:44:000.6 [facility] ChsulruJHDKRCEUBV7296-93-34 21:44:000.3[facility]annHEMATOLOGY 2020-11-06 21:44:000.1[facility] GvtifaxWDKMNX4554-65-89 21:44:24725Irlrjprw ZvbbjojIUWBAB4723-92-45 21:44:31299Sfquqiut NvgwdvdSEIIYW0987-82-29 21:44:0048 [facility] [id number] 21:44:00 Test Item Value Reference Range Interpretation Comments CHD Risk (test code = CHD Risk) 2.10 1 3.90-5.80 [facility] XiwfcimQVDETX4474-07-50 21:44:0033[facility] VlgpjnlZUWKIH7712-99-65 21:44:00 Test Item Value Reference Range Interpretation Comments VLDL (test code = VLDL) 20 1 [facility] [id number] 21:44:007.9[facility]&B [id number] 10:58:00 Test Item Value Reference Range Interpretation Comments RAPID INFLUENZA A AG (BEAKER) Negative Negative, Inconclusive (test code = 1622) RAPID INFLUENZA B AG (BEAKER) Negative Negative, Inconclusive (test code = 1623)
[2021-03-15] MEDS ORDERED: NA CHLORIDE 0.9% 500 ML ONE (09:15)
[2021-03-15 09:17] LABS: Absolute Lymphocytes (CBC) 2.5 K/uL (0.7-4.9); Basophils % 0.7 % (0-1.3); Hematocrit 41.3 % (36.0-45.0); MPV 8.2 fL (7.6-11.3); RBC Red Blood Cell Count 4.65 M/uL (3.86-4.86)
[2021-03-15 09:35] LABS: Potassium 3.8 mmol/L (3.5-5.1)
--- NOTE | 2021-03-15 11:09 | RAD REPORT ---
EXAM DESCRIPTION: RAD - Chest Single View - 03/15/2021 10:59 am CLINICAL HISTORY: Cough;Dyspnea Chest pain. COMPARISON: No comparisons FINDINGS: Portable technique limits examination quality. The lungs are grossly clear. The heart is normal in size. No displaced fractures.Right clavicular eric dware. IMPRESSION: No acute intrathoracic process suspected.
--- NOTE | 2021-03-15 12:42 | RAD REPORT ---
EXAM DESCRIPTION: CT - Chest For Pe Angio - 03/15/2021 12:24 pm CLINICAL HISTORY: sob COMPARISON: None. TECHNIQUE: Dynamically enhanced axial 3 mm thick images of the chest were obtained during administra tion of <100> mL Isovue 370 IV contrast. Coronal and oblique reconstruction images were generated and reviewed. Exam utilizes a protocol for optimal evaluation of pulmonary arterial tree. Maximum intensity projections 3D imaging was utilized All CT scans are performed using dose optimization technique as appropriate and may include automated exposure control or mA/KV adjustment according to patient size. FINDINGS: A pulmonary embolus is not seen. A thoracic aortic aneurysm is not noted. A pleural effusion is not seen. A pericardial effusion is not seen. Mild lingular atelectasis IMPRESSION: Negative for a pulmonary embolism.
--- NOTE | 2021-03-15 12:55 | EDPHYS ---
Physician Documentation [facility] Name: Katerine Izaguirre Age: 65 yrs Sex: Female : 1955 Arrival Date: 03/15/2021 Time: 08:11 Bed 4 Private MD: ED Physician Miguelangel Butcher HPI: 03/15 09:51 This 65 yrs old Female presents to ER via Wheelchair with complaints of rn Shortness Of Breath. 09:51 The patient has shortness of breath with light activity. Onset: The symptoms/episode rn began/occurred 2 week(s) ago. Duration: The symptoms are intermittent. The patient's shortness of breath is aggravated by exertion, light activity, is alleviated by rest. Severity of symptoms: At their worst the symptoms were mild in the emergency department the symptoms are unchanged. The patient has not experienced similar symptoms in the past. The patient has been recently seen by a physician:. Reports family member with COVID recently, had negative test herself but was asymptomatic at that time, now having increased wob with exertion, fatigue, muscle aches, and loss of taste and smell. no chronic lung problems. . Historical: - Allergies: 08:27 No Known Allergies; tw2 - Home Meds: 08:27 metformin 500 mg Oral tab 1 tab 2 times per day [Active]; Humalog Mix 75-25 100 unit/mL tw2 (75-25) Sub-Q susp [Active]; lisinopril 2.5 mg Oral tab 1 tab once daily [Active]; rosuvastatin 20 mg oral tab 1 tab once daily [Active]; topiramate 25 mg oral tab 1 tabs 2 times per day [Active]; Butalbital Compound 50-325-40 mg Oral tab 1 tab every 4 hours [Active]; - PMHx: 08:27 Diabetes - IDDM; Hyperlipidemia; brain lesions,; tw2 - PSHx: 08:27 Cholecystectomy; ; cardiac stent; left ankle sx; right clavicle sx; Carpal tw2 Tunnel Repair; - Immunization history:: Adult Immunizations. - Social history:: Smoking status: . - Family history:: not pertinent. - Hospitalizations: : No recent hospitalization is reported. 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 Exam: 09:51 Constitutional: This is a well developed, well nourished patient who is awake, alert, rn and in no acute distress. Head/Face: Normocephalic, atraumatic. Eyes: Periorbital areas with no swelling, redness, or edema. Cardiovascular: Regular rate and rhythm. No pulse deficits. Respiratory: Mild tachypnea, no retractions, speaking full sentences. Abdomen/GI: Soft, non-tender Skin: Warm, dry MS/ Extremity: Pulses equal, no cyanosis. Neuro: Awake and alert, GCS 15 Vital Signs: 08:18 BP 131 / 65; Pulse 99; Resp 19; Temp 97.9(TE); Pulse Ox 98% on R/A; Weight 99.79 kg tw2 (R); Height 5 ft. 3 in. (160.02 cm); Pain 6/10; 10:01 BP 129 / 69; Pulse 82; Resp 20; Pulse Ox 98% ; sv 10:35 BP 132 / 62; Pulse 84; Resp 17; Pulse Ox 99% on R/A; hb 11:31 BP 103 / 58; Pulse 80; Resp 17; Pulse Ox 99% ; hb 12:42 BP 115 / 75; Pulse 79; Resp 18; Pulse Ox 97% ; hb 08:18 Body Mass Index 38.97 (99.79 kg, 160.02 cm) tw2 MDM: 08:34 Patient medically screened. rn 12:52 Differential diagnosis: Bronchitis Myocardial Infarction pneumonia, Pneumothorax rn Pulmonary Embolism viral syndrome, pneumonia, COVID. Data reviewed: vital signs, nurses notes, lab test result(s), EKG, radiologic studies, CT scan, plain films, and as a result, I will discharge patient. Counseling: I had a detailed discussion with the patient and/or guardian regarding: the historical points, exam findings, and any diagnostic results supporting the discharge/admit diagnosis, lab results, radiology results, the need for outpatient follow up, to return to the emergency department if symptoms worsen or persist or if there are any questions or concerns that arise at home. Response to treatment: the patient's symptoms have mildly improved after treatment, and as a result, I will discharge patient. Special discussion: I discussed with the patient/guardian in detail that at this point there is no indication for admission to the hospital. It is understood, however, that if the symptoms persist or worsen the patient needs to return immediately for re-evaluation. 12:52 ED course: No clear etiology of dyspnea, CT PE neg, Trop neg, COVID neg, possibly rn another viral illness given myalgias/chills/fatigue. Unlikely 2 false neg COVID tests.. 03/15 08:45 Order name: COVID-19 : Document "Date of Symptom Onset" if Symptomatic. 03/15 08:45 Order name: CBC with Diff rn 03/15 08:45 Order name: Basic Metabolic Panel 03/15 08:45 Order name: Procalcitonin 03/15 08:45 Order name: Blood Culture Adult (2) 03/15 08:45 Order name: BNP 03/15 09:21 Order name: CBC with Automated Diff; Complete Time: 11:22 EDCA 03/15 09:27 Order name: CORONAVIRUS [facility] 03/15 09:35 Order name: Basic Metabolic Panel; Complete Time: 11:22 EDCA 03/15 09:35 Order name: NT PRO-BNP; Complete Time: 11:22 [facility] 03/15 10:19 Order name: XRAY Chest (1 view) 03/15 10:20 Order name: SARS-COV-2 RT PCR; Complete Time: 11:22 EDCA 03/15 10:24 Order name: Procalcitonin; Complete Time: 11:22 EDCA 03/15 11:09 Order name: RAD; Complete Time: 11:22 EDCA 03/15 08:45 Order name: IV Start; Complete Time: 09:10 rn 03/15 08:45 Order name: EKG; Complete Time: 08:46 rn 03/15 08:45 Order name: EKG - Nurse/Tech; Complete Time: 09:10 rn 03/15 11:23 Order name: CT Chest For PE Angio rn 03/15 12:43 Order name: CT; Complete Time: 12:56 EDMS Administered Medications: 09:10 Drug: NS 0.9% 500 ml Route: IV; Rate: bolus; Site: right antecubital; hb 09:40 Follow up: Response: No adverse reaction; IV Status: Completed infusion; IV Intake: hb 500ml Disposition: 03/15/21 12:55 Discharged to Home. Impression: Dyspnea, unspecified, Viral syndrome. - Condition is Stable. - Discharge Instructions: Shortness of Breath, Viral Respiratory Infection. - Prescriptions for Albuterol Sulfate 90 mcg/actuation - inhale 1-2 puff by INHALATION route every 4-6 hours; 1 Inhaler. - Medication Reconciliation Form, Thank You Letter, Antibiotic Education, Prescription Opioid Use form. - Follow up: Private Physician; When: As needed; Reason: Recheck today's complaints, Re-evaluation by your physician. - Problem is new. - Symptoms have improved. Signatures: Dispatcher [employer] EDAshley Kingston RN RN sv Nieto, Roman, MD MD rn Baxter, Heather, RN RN Carly Chaparro RN RN tw2 Corrections: (The following items were deleted from the chart) 13:10 12:55 03/15/2021 12:55 Discharged to Home. Impression: Dyspnea, unspecified; Viral sv syndrome. Condition is Stable. Forms are Medication Reconciliation Form, Thank You Letter, Antibiotic Education, Prescription Opioid Use. Follow up: Private Physician; When: As needed; Reason: Recheck today's complaints, Re-evaluation by your physician. Problem is new. Symptoms have improved. rn
--- NOTE | 2021-03-15 12:55 | ER ---
Nurse's Notes [facility] Name: Katerine Izaguirre Age: 65 yrs Sex: Female : 1955 Arrival Date: 03/15/2021 Time: 08:11 Bed 4 Private MD: Diagnosis: Dyspnea, unspecified;Viral syndrome Presentation: 03/15 08:15 Note portable pulse ox placed on pt 97%, pt states "i have got to go to the bathroom", tw2 urine specimen cup given to pt, pt transported to restroom via w/c at this time. 08:18 Chief complaint: Patient states: it was about 2 or 3 am to go to the bathroom and i was tw2 winded. i feel like i cant do a whole lot. my granddaughter got tested + for COVID on February 28, so my whole household got it all. my test was negative the last time i was here but since then i am short of breath and tired and i feel like crap. Coronavirus screen: cough unrelated to allergies, difficulty breathing, nausea, runny nose, Client presents with at least one sign or symptom that may indicate coronavirus-19. Standard/surgical mask placed on the client. Provider contacted for isolation considerations. Ebola Screen: Patient denies travel to an Ebola-affected area in the 21 days before illness onset. Initial Sepsis Screen: Does the patient meet any 2 criteria? No. Patient's initial sepsis screen is negative. Does the patient have a suspected source of infection? No. Patient's initial sepsis screen is negative. Risk Assessment: Do you want to hurt yourself or someone else? Patient reports no desire to harm self or others. Onset of symptoms was March 15, 2021. 08:18 Method Of Arrival: Wheelchair tw2 08:18 Acuity: GARIMA 3 tw2 Triage Assessment: 08:14 General: Appears in no apparent distress. obese, well groomed, Behavior is calm, tw2 cooperative, appropriate for age. Pain: Denies pain. Respiratory: Reports shortness of breath at rest on exertion Onset: The symptoms/episode began/occurred yesterday, the patient has mild shortness of breath. Historical: - Allergies: 08:27 No Known Allergies; tw2 - Home Meds: 08:27 metformin 500 mg Oral tab 1 tab 2 times per day [Active]; Humalog Mix 75-25 100 unit/mL tw2 (75-25) Sub-Q susp [Active]; lisinopril 2.5 mg Oral tab 1 tab once daily [Active]; rosuvastatin 20 mg oral tab 1 tab once daily [Active]; topiramate 25 mg oral tab 1 tabs 2 times per day [Active]; Butalbital Compound 50-325-40 mg Oral tab 1 tab every 4 hours [Active]; - PMHx: 08:27 Diabetes - IDDM; Hyperlipidemia; brain lesions,; tw2 - PSHx: 08:27 Cholecystectomy; ; cardiac stent; left ankle sx; right clavicle sx; Carpal tw2 Tunnel Repair; - Immunization history:: Adult Immunizations. - Social history:: Smoking status: . - Family history:: not pertinent. - Hospitalizations: : No recent hospitalization is reported. Screenin:10 Abuse screen: Denies threats or abuse. Denies injuries from another. Nutritional hb screening: No deficits noted. Tuberculosis screening: No symptoms or risk factors identified. Fall Risk None identified. Assessment: 09:11 General: Appears in no apparent distress. ill, Behavior is calm, cooperative. Pain: hb Pain currently is 6 out of 10 on a pain scale. Neuro: Level of Consciousness is awake, alert, obeys commands, Oriented to person, place, time, situation. Cardiovascular: Patient's skin is warm and dry. Rhythm is regular. Respiratory: Reports shortness of breath at rest on exertion cough that is non-productive, persistent pain with cough pain with respiration Airway is patent Respiratory effort is even, unlabored, Respiratory pattern is regular, symmetrical. GI: No signs and/or symptoms were reported involving the gastrointestinal system. : No signs and/or symptoms were reported regarding the genitourinary system. EENT: No signs and/or symptoms were reported regarding the EENT system. Derm: Skin is pink, warm \\T\\ dry. Musculoskeletal: No signs and/or symptoms reported regarding the musculoskeletal system. 10:30 Reassessment: Patient appears in no apparent distress at this time. Patient and/or hb family updated on plan of care and expected duration. Pain level reassessed. Patient is alert, oriented x 3, equal unlabored respirations, skin warm/dry/pink. 11:31 Reassessment: Patient appears in no apparent distress at this time. Patient and/or hb family updated on plan of care and expected duration. Pain level reassessed. Patient is alert, oriented x 3, equal unlabored respirations, skin warm/dry/pink. 12:42 Reassessment: Patient appears in no apparent distress at this time. Patient and/or hb family updated on plan of care and expected duration. Pain level reassessed. Patient is alert, oriented x 3, equal unlabored respirations, skin warm/dry/pink. 13:10 Reassessment: Patient appears in no apparent distress at this time. Patient and/or sv family updated on plan of care and expected duration. Pain level reassessed. Patient is alert, oriented x 3, equal unlabored respirations, skin warm/dry/pink. Vital Signs: 08:18 BP 131 / 65; Pulse 99; Resp 19; Temp 97.9(TE); Pulse Ox 98% on R/A; Weight 99.79 kg tw2 (R); Height 5 ft. 3 in. (160.02 cm); Pain 6/10; 10:01 BP 129 / 69; Pulse 82; Resp 20; Pulse Ox 98% ; sv 10:35 BP 132 / 62; Pulse 84; Resp 17; Pulse Ox 99% on R/A; hb 11:31 BP 103 / 58; Pulse 80; Resp 17; Pulse Ox 99% ; hb 12:42 BP 115 / 75; Pulse 79; Resp 18; Pulse Ox 97% ; hb 08:18 Body Mass Index 38.97 (99.79 kg, 160.02 cm) tw2 ED Course: 08:11 Patient arrived in ED. ds1 08:16 Arm band placed on. tw2 08:23 Triage completed. tw2 08:32 Radha Barragan, RN is Primary Nurse. hb 08:34 Miguelangel Butcher MD is Attending Physician. rn 09:06 Inserted saline lock: 20 gauge in right antecubital area, using aseptic technique. hb Blood collected. 09:10 Patient has correct armband on for positive identification. Placed in gown. Bed in low hb position. Call light in reach. Side rails up X 1. outside machinist on. Pulse ox on. NIBP on. 09:10 COVID-19 : Document "Date of Symptom Onset" if Symptomatic. Sent. hb 09:12 BNP Sent. sv 09:12 Procalcitonin Sent. sv 09:12 CBC with Diff Sent. sv 09:12 Basic Metabolic Panel Sent. sv 09:12 Blood Culture Adult (2) Sent. sv 09:49 CORONAVIRUS Sent. sv 10:42 X-ray(s) taken. sv 10:42 XRAY Chest (1 view) Sent. sv 12:52 CT Chest For PE Angio Sent. sv 13:10 No provider procedures requiring assistance completed. IV discontinued, intact, sv bleeding controlled, No redness/swelling at site. Pressure dressing applied. Administered Medications: 09:10 Drug: NS 0.9% 500 ml Route: IV; Rate: bolus; Site: right antecubital; hb 09:40 Follow up: Response: No adverse reaction; IV Status: Completed infusion; IV Intake: hb 500ml Intake: 09:40 IV: 500ml; Total: 500ml. hb Outcome: 12:55 Discharge ordered by . rn 13:10 Discharged to home ambulatory, with her personal cane sv 13:10 Condition: stable 13:10 Discharge instructions given to patient, Instructed on discharge instructions, follow up and referral plans. medication usage, Demonstrated understanding of instructions, follow-up care, medications, Prescriptions given X 1. 13:10 Patient left the ED. sv Signatures: Ashley Dickerson RN RN sv Sanford, Demi ds1 Miguelangel Butcher MD MD rn Baxter, Heather, RN RN hb Wise, Tara, RN RN tw2
[2021-03-15 13:43] VITALS: TEMP 97.9
[2021-03-15 13:48] VITALS: BP 115/75; O2SAT 97
--- NOTE | 2021-03-16 10:35 | EKG ---
Test Date: 2021-03-15 Test Time: 09:05:03 Ict Support Engineer: HB MEASUREMENT RESULTS: Intervals: Rate: 89 UT: 138 QRSD: 84 QT: 358 QTc: 435 [place]: P: 13 UT: 138 QRS: 0 T: 50 INTERPRETIVE STATEMENTS: Normal sinus rhythm Normal ECG No previous ECG available for comparison Electronically Signed On 03-16-21 10:32:06 CDT by Skip Deutsch
== END 2021-03-15 13:10 | disposition home or self-care (01) ==
LOC: ER 08:09
DX: B34.9 Viral infection, unspecified (principal); Z20.822 Contact with and (suspected) exposure to COVID-19; E11.9 Type 2 diabetes mellitus without complications; E78.5 Hyperlipidemia, unspecified; Z79.4 Long term (current) use of insulin; Z95.9 Presence of cardiac and vascular implant and graft, unspecified
CPT/HCPCS: 87040 ×2; 85025; 80048; 36415; 84145; 83880; 71275; 71045; U0003; Q9967; J7040; 93005; 99284

== ENCOUNTER 2022-08-17 10:24 | Emergency (ER) | payer OTHER ==
--- OUTSIDE RECORDS SUMMARY | 2022-08-17 10:30 | XMS REPORT | Continuity of Care Document ---
:1955 Author Organization [facility] t Address [address] [place] [address] [address] [place] [address] Care Team Providers Name Role Phone AMARIS Attending Clinician Unavailable Josué Cerrato Attending Clinician [phone] GEETA Attending Clinician Unavailable Linda Attending Clinician Unavailable Travis Hunt Attending Clinician Maia Attending Clinician Unavailable Genaro Gaytan MD Attending Clinician UDAY BUENO Attending Clinician Unavailable Uday Bueno Attending Clinician Danilo Casillas Attending Clinician BRADY HARDING Attending Clinician Unavailable AMARIS Admitting Clinician Unavailable GEETA Admitting Clinician Unavailable Linda Admitting Clinician Unavailable Maia Admitting Clinician Unavailable UDAY BUENO Admitting Clinician Unavailable Uday Bueno Admitting Clinician Payers Payer Name Policy Type Policy Number Effective Date Expiration Date [employer] - [id number] 2020 [facility] 00:00:00 (MEDICARE REPLACEMENT/ADVANTA GE - HMO) [facility] [id number] 2020 00:00:00 [facility] COMMUNITY PLAN [id number] - DUAL COMPLETE - SNP (MEDICARE REPLACEMENT HMO-POS) Problems Condition Condition Condition Status Onset Resolution Last Treating Co mments Source Name Details Category Date Date Treatment Clinician Date Adhesive Adhesive Problem Active [facility] y capsulitis Capsulitis 9-22 Co mmuni of left of Left 00:00: ty shoulder Shoulder 00 [facility] Body mass Body Mass Problem Active [place] index 30+ Index 30+ 3-18 Comm uni - obesity - Obesity 00:00: ty 00 [employer] Intracrani Intracrani Problem Active S weeny al al 2-26 Communi meningioma Meningioma 00:00: ty 00 [employer] CHEST PAIN CHEST Diagnosis Active 2020-11-15 Memoria PAIN 2-14 21:41:00 l Active 00:00: Mateus 11/06/2020 00 [facility] Diabetes Diabetes Problem Active [place] mellitus Mellitus 1-25 Commun i 00:00: ty 00 [employer] Mixed Mixed Problem Active [place] hyperlipid Hyperlipid 1-25 Co mmuni emia emia 00:00: ty 00 [employer] Lesion of Lesion of Problem Active [place] brain Brain 1-25 Communi 00:00: ty 00 [employer] Neuropathy Neuropathy Problem Active S weeny due to Due to 1-25 Communi diabetes Diabetes 00:00: ty mellitus [facility] Coronary Coronary Problem Active [place] arterioscl Arterioscl 1-25 Co [facility]i erosis erosis 00:00: ty 00 [employer] Arthritis Arthritis Problem Active [place] 1-25 Communi 00:00: ty 00 [employer] Stented Stented Problem Active [place] artery Artery 1-25 Communi 00:00: ty 00 [employer] History of History of Problem Active S weeny SARS-CoV-2 SARS-CoV-2 1-25 Co mmuni 00:00: ty 00 [employer] Chronic Chronic Problem Active [place] cerebrovas Cerebrovas 1-25 Co mmuni cular cular 00:00: ty accident Accident 00 Hospit a [facility] D32.0 - D32.0 - Diagnosis Active 2020-06-06 Memoria BENIGN BENIGN -18 08:53:00 l NEOPLASM NEOPLASM 00:01: Nathaniel vasquez OF OF 00 CEREBRAL CEREBRAL ME ME Active 02/08/2020 [facility] [place] Carpal Carpal Problem Resolve 2022-02-16 Mem oria tunnel tunnel d 04:38:24 l syndrome syndrome Nathaniel n (disorder) (disorder) Resolved Problem 02/16/20221986 [facility] Fracture Fracture Problem Resolve 2022-02-16 Memoria of ankle of ankle d 04:38:24 l (disorder) (disorder) He rmann Resolved Problem 02/16/20222007 [facility] Heartburn Heartburn Problem Resolve 2022-02-16 Memoria (finding) (finding) d 04:38:24 l Resolved [place] Problem 02/16/2022 [facility] Lesion of Lesion of Problem Resolve 2022-02-16 Memoria neck neck d 04:38:24 l (finding) (finding) Herm lana Resolved Problem 02/16/2022 [facility] Neoplasm Neoplasm Problem Resolve 2022-02-16 Memoria of brain of brain d 04:38:24 l (disorder) (disorder) He rmann Resolved Problem 02/16/[id number] [place] DOE. [facility] At risk At risk Problem Active 2022-02-16 Me moria for for 04:38:24 l negative negative Nathaniel vasquez response response to to medication medication (finding) (finding) Active Problem 02/16/2022 [facility] Headache Headache Problem Active 2022-02-16 Memoria (finding) (finding) 04:38:24 l Active [place] Problem 02/16/2022 [facility] History of History Problem Active 2022-02-16 Memoria - TIA of - TIA 04:38:24 l (context-d (context-d He maritza ependent ependent category) category) Active Problem 02/16/2022 [facility] Hyperlipid Hyperlipi Problem Active 2022-02-16 Memoria emia demia 04:38:24 l (disorder) (disorder) He rmann Active Problem 02/16/2022 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 Neoplasm Neoplasm Problem Active 2022-02-16 Memoria of of 04:38:24 l meninges meninges Nathaniel n (disorder) (disorder) Active Problem 02/16/2022 [facility] Osteoarthr Osteoarth Problem Active 2022-02-16 Memoria itis of ritis of 04:38:24 l knee knee [place] (disorder) (disorder) Active Problem 02/16/2022 [facility] Group,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 Allergies, Adverse Reactions, Alerts Allergy Allergy Status Severity Reaction(s) Onset Inactive Treating Comm ents Source Name Type Date Date Clinician MECLIZIN Allergy [facility] Meclizin Propensi Active Other (See Ba ylor e Hcl ty to Comments) 10-14 [facility] adverse 00:00: of reaction 00 Medicin s to e drug Meclizin Propensi [facility] adverse [facility] reaction 00 Center s Antivert Allergy Active Other [place] to Communi substanc ty e Hospita l Clinics Butalbit Allergy Active Severe Other [place] al to Communi substanc ty e Hospita l Clinics Antivert Antivert Active Severe Memori a <sup>1</ <sup>1</ l sup> sup> [place] Social History Social Habit Start Date Stop Date Quantity Comments Source History SDOH [facility] Alcohol Std Drinks Medica [facility] Center History SDOH [facility] Alcohol Binge Medical [facility] History SDOH [facility] Alcohol Comment Medical C enter Social History 2022-01-01 2022-01-01 [facility] 15:05:37 15:05:37 Tobacco use and 2019-10-14 2019-10-[address] [facility] exposure 00:00:00 00:00:00 [facility] Alcohol intake 2019-10-14 2019-10-[address] [facility] 00:00:00 00:00:00 non-drinker of Medical Ce nter alcohol (finding) History SDUT 2019-10-14 2019-10-[address] [facility] Alcohol Frequency 00:00:00 00:00:00 [facility] Sex Assigned At [address] [facility] 00:00:00 00:00:00 [facility] Center Smoking Status Start Date Stop Date Source Never smoker [facility] Social History 2020-11-06 21:36:02 2020-11-06 21:36:02 [facility] Medications Ordered Filled Start Stop Current Ordering Indication Dosage Frequency Signature Comments Components Source Medication Medication Date Date Medication? Clinician (SIG) Name Name rosuvastati Yes 10 mg = 1 M emoria n 10 mg 4-11 tab, PO, l oral tablet 15:08: Bedtime, # [place] 00 90 tab, 0 Refill(s) Humalog Mix Yes 0 Memori a 75/25 4-11 Refill(s) l KwikPen 15:08: [place] subcutaneou 00 s suspension lisinopril Yes 2.5 mg = 1 M emoria 2.5 mg oral 4-11 tab, PO, l tablet 15:07: Daily, # [place] 00 90 tab, 1 Refill(s) meloxicam meloxicam No 1 Q1D meloxicam [place] 15 mg 15 mg 3-18 15 mg Communi tablet Take tablet Take 00:00: tablet ty 1 tablet 1 tablet 00 Take 1 Hospi ta every day every day tablet l by oral by oral every day Clin ics route as route as by oral needed. needed. route as needed. meloxicam meloxicam 2021-0 No 1 Q1D meloxicam [place] 15 mg 15 mg 3-18 15 mg Communi tablet Take tablet Take 00:00: tablet ty 1 tablet 1 tablet 00 Take 1 Hospi ta every day every day tablet l by oral by oral every day Clin ics route as route as by oral needed. needed. route as needed. meloxicam meloxicam No 1 Q1D meloxicam [place] 15 mg 15 mg 3-18 15 mg Communi tablet Take tablet Take 00:00: tablet ty 1 tablet 1 tablet 00 Take 1 Hospi ta every day every day tablet l by oral by oral every day Clin ics route as route as by oral needed. needed. route as needed. meloxicam meloxicam 0 No 1 Q1D meloxicam [place] 15 mg 15 mg 3-18 15 mg Communi tablet Take tablet Take 00:00: tablet ty 1 tablet 1 tablet 00 Take 1 Hospi ta every day every day tablet l by oral by oral every day Clin ics route as route as by oral needed. needed. route as needed. meloxicam meloxicam 2021-0 No 1 Q1D meloxicam [place] 15 mg 15 mg 3-18 15 mg Communi tablet Take tablet Take 00:00: tablet ty 1 tablet 1 tablet 00 Take 1 Hospi ta every day every day tablet l by oral by oral every day Clin ics route as route as by oral needed. needed. route as needed. meloxicam meloxicam 2021-0 No 1 Q1D meloxicam [place] 15 mg 15 mg 3-18 15 mg Communi tablet Take tablet Take 00:00: tablet ty 1 tablet 1 tablet 00 Take 1 Hospi ta every day every day tablet l by oral by oral every day Clin ics route as route as by oral needed. needed. route as needed. meloxicam meloxicam 2021-0 No 1 Q1D meloxicam [place] 15 mg 15 mg 3-18 15 mg Communi tablet Take tablet Take 00:00: tablet ty 1 tablet 1 tablet 00 Take 1 Hospi ta every day every day tablet l by oral by oral every day Clin ics route as route as by oral needed. needed. route as needed. topiramate Yes 25mg Take 1 [facility] (TOPAMAX) 6-08 Tablet by Eunice ge 25 MG 00:00: mouth two of tablet 00 times Medicin daily. e butalbital- Yes 1{tbl} Take 1 Ba ylor acetaminoph 6-08 Tablet by Col lege en-caffeine 00:00: mouth of (FIORICET, 00 every 12 Medic in ESGIC) hours as e 50-325-40 needed for MG per Headaches. tablet lisinopril Yes [facility] (PRINIVIL, 4-19 [place] ZESTRI) 00:00: of 2.5 MG 00 Medicin tablet e atorvastati Yes 80 mg = 1 M emoria n 80 mg 2-18 tab, PO, l oral tablet 18:48: Bedtime, # [place] 00 30 tab, 0 Refill(s), Pharmacy: [facility] #[id number], 160.02, cm, 11/06/20 15:33:00 [employer], Height, 100.199, kg, 11/06/20 15:33:00 [employer], Weight Aspirin 81 Yes 81 mg = 1 Me moria MG Enteric 2-18 tab, PO, l Coated 18:48: Daily, # [place] Tablet 00 30 tab, 0 Refill(s), Pharmacy: [facility] #[id number], 160.02, cm, 11/06/20 15:33:00 [employer], Height, 100.199, kg, 11/06/20 15:33:00 [employer], Weight pantoprazol Yes 40 mg = 1 M emoria e 40 mg 2-18 tab, PO, l oral 18:46: Before Mateus enteric 00 Dinner, # coated 30 tab, 2 tablet Refill(s), Pharmacy: [facility] #[id number], 160.02, cm, 11/06/20 15:33:00 [employer], Height, 100.199, kg, 11/06/20 15:33:00 [employer], Weight calcium Yes 500 mg = 1 Pako bruce carbonate 2-18 tab, CHEW, l 500 mg (200 18:46: TID, PRN He rmann mg 00 Indigestio elemental n, # 30 calcium) tab, 0 oral tablet Refill(s), Pharmacy: [facility] #[id number], 160.02, cm, 11/06/20 15:33:00 [employer], Height, 100.199, kg, 11/06/20 15:33:00 [employer], Weight calcium No 500 mg = 1 Pako bruce carbonate 2-18 tab, CHEW, l 500 mg (200 18:35: TID, PRN He rmann mg 00 Indigestio elemental n, 0 calcium) Refill(s) oral tablet atorvastati No 80 mg = 1 M emoria n 80 mg 2-18 tab, PO, l oral tablet 18:35: Bedtime, # [place] 00 30 tab, 0 Refill(s) Aspirin 81 No 81 mg = 1 Me moria MG Enteric 2-18 tab, PO, l Coated 18:35: Daily, # [place] Tablet 00 30 tab, 0 Refill(s) Insulin No 8 unit, Memoria Glargine 2-18 0.08 mL, l 15:00: Route: Mateus 00 SUB-Q, Drug form: SOLN, Q12H, Dosing Weight 100.199, kg, Start date: 11/10/20 9:00:00 [employer], Duration: 30 day, Stop date: 12/09/20 21:00:00 CDT, 0 Adenosine No Notes: For Me moria 2-17 diagnostic l 18:26: use only. [place] 00 (Same as: Adenoscan) MEDICATION WASTE Product Size: 90 mg Product Wasted: ___ mg Insulin No 5 unit, Memoria Glargine 2-17 0.05 mL, l 15:00: Route: [place] 00 SUB-Q, Drug form: SOLN, Q12H, Dosing Weight 100.199, kg, Start date: 11/09/20 9:00:00 [employer], Duration: 30 day, Stop date: 12/08/20 21:00:00 CDT, 0 Protonix No Notes: Memoria 2-15 Tablet l 22:30: should not [place] 00 be chewed or crushed. (Same as: Protonix) Acetaminoph No Notes: Do M emoria en 2-15 not exceed l 17:23: 4 gm/day. [place] (Same as: Tylenol) Tums No Notes: Memoria [...] 2-15 not crush l 15:00: or chew. (Same As: Ecotrin) heparin No Notes: Memoria 2-15 porcine l 06:00: heparin Melatonin 3 No Notes: Pako bruce MG Extended 2-15 (Same as: l Release 05:55: Melatonin) Herm lana Tablet sennosides, No Notes: Pako bruce ALF 2-15 (Same as: l 03:00: Senokot) atorvastati No Notes: Pako bruce n 2-15 Same as l 03:00: Lipitor Insulin No 10 unit, Memori a Glargine 2-15 0.1 mL, l 03:00: Route: SUB-Q, Drug form: SOLN, Q12H, Dosing Weight 100.199, kg, Start date: 11/06/20 21:00:00 [employer], Duration: 30 day, Stop date: 12/06/20 9:00:00 CDT, 0 Humalog Mix No 18 unit, Me moria 75/25 Pen 2-14 Route: l 23:00: SUB-Q, Drug form: SUSP, BID, Dosing Weight 100.199, kg, Start date: 11/06/20 17:00:00 [employer], Duration: 30 day, Stop date: 12/06/20 9:00:00 CDT pantoprazol No 20 mg, Pako bruce e 2-14 Route: PO, l 22:30: Drug form: [place] ECTAB, BID-Before Meals, Dosing Weight 100.199, kg, Start date: 11/06/20 16:30:00 [employer], Duration: 30 day, Stop date: 12/06/20 7:30:00 CDT Dextrose 2020-0 No 12.5 gm, Memor ia 50% Syringe 2-14 25 mL, l (D50W) 22:28: Route: [place] IVP, Drug Form: INJ, Dosing Weight 100.199, kg, PRN, PRN Blood Glucose Results, Start date: 11/06/20 16:28:00 [employer], Duration: 30 day, Stop date: 12/06/20 17:27:00 CDT, 0 Glucagon 2020- No 1 mg, Memoria 2-14 Route: IM, l 22:28: Drug form: [place] PDR/INJ, PRN, Dosing Weight 100.199, kg, PRN Blood Glucose Results, Start date: 11/06/20 16:28:00 [employer], Duration: 30 day, Stop date: 12/06/20 17:27:00 CDT, 0 Insulin 2020- No Notes: Memoria Lispro 2-14 (Same as: l 22:28: Humalog) Roll in palms of hands gently; Do not shake vigorously . WASTE: F/P - Black; E - Municipal Trash Bin Stable for 28 days at room temperatur e. Expires in days from ____Date Aspirin 325 2020-0 No 325 mg, Mem oria MG Oral 2-14 Route: PO, l Tablet 22:25: Drug form: Delia nn 00 TAB, ONCE, Dosing Weight 100.199, kg, Start date: 11/06/20 16:25:00 [employer], Stop date: 11/06/20 16:25:00 [employer] 3 ML Yes 18 unit, Memoria Insulin 2-14 SUB-Q, l Lispro 25 22:01: BID, 0 Nathaniel n UNT/ML / 00 Refill(s) Insulin, Protamine Lispro, Human 75 UNT/ML Prefilled Syringe [Humalog Mix 75/25] rosuvastati No 10 mg = 1 M emoria n 10 MG 2-14 cap, PO, l Oral 22:01: Daily, 0 [place] Capsule 00 Refill(s) Dextrose No 12.5 gm, Memor ia 50% Syringe 2-14 25 mL, l (D50W) 21:35: Route: [place] 00 IVP, Drug Form: INJ, Dosing Weight 100.199, kg, PRN, PRN Blood Glucose Results, Start date: 11/06/20 15:35:00 [employer], Duration: 30 day, Stop date: 12/06/20 16:34:00 CDT, 0 Glucagon No 1 mg, Memoria 2-14 Route: IM, l 21:35: Drug form: [place] PDR/INJ, PRN, Dosing Weight 100.199, kg, PRN Blood Glucose Results, Start date: 11/06/20 15:35:00 [employer], Duration: 30 day, Stop date: 12/06/20 16:34:00 CDT, 0 Insulin Yes Humalog [facility] Lispro Prot 1-18 Mix 75-25 Col lege & Lispro 00:00: KwikPen of (HUMALOG 00 U-100 Medicin MIX 75/25 insulin e KWIKPEN) 100 (75-25) 100 unit/mL UNIT/ML subcutaneo SUPN us pen Inject 23 U SQ BID rosuvastati Yes rosuvastat [facility] n (CRESTOR) 9-30 in 10 mg Myles ege 10 MG 00:00: tablet 1 of tablet 00 PO qd Medicin e butalbital- Yes 1{capsu Take 1 B aylor acetaminoph 9-30 le} capsule by Co llege en-caffeine 00:00: mouth. of (FIORICET 00 Medicin WITH e CODEINE) 50-325-40-3 0 MG per capsule metformin Yes metformin [place] sh[facility]el (GLUCOPHAGE 9-30 1,000 mg Myles ege ) 1000 MG 00:00: tablet 1 of tablet 00 PO BID Medicin e Aspirin Low Yes 81 mg = 1 M emoria [...] PO, l oral tablet 19:03: Bedtime, 0 [place] 00 Refill(s) 3 ML 2020-0 Yes SUB-Q, [...] SUB-Q, l 3 MG/ML 19:03: once a [place] Prefilled 00 week, 0 Syringe Refill(s) [Trulicity] Acetaminoph 2019-0 Yes 1 cap, PO, Memoria en 300 MG / 3-31 BID, PRN l butalbital 19:03: Pain, 0 Herm lana 50 MG / 00 Refill(s) Caffeine 40 MG Oral Capsule insulin insulin No insulin [place] lispro lispro lispro Communi protamine-l protamine-l protamine- ty ispro 100 ispro 100 lispro 100 Hospita unit/mL unit/mL unit/mL l (75-25) (75-25) (75-25) Clinic s subcutaneou subcutaneou subcutaneo s pen s pen us pen INJECT 23 INJECT 23 INJECT 23 UNITS UNDER UNITS UNDER UNITS THE SKIN THE SKIN UNDER THE TWICE DAILY TWICE DAILY SKIN TWICE DAILY Januvia 50 Januvia 50 No Januvia 50 [place] mg tablet mg tablet mg tablet Communi TAKE 1 TAKE 1 TAKE 1 ty TABLET BY TABLET BY TABLET BY Hospita MOUTH EVERY MOUTH EVERY MOUTH l DAY DAY EVERY DAY Clinics lisinopril lisinopril No lisinopril [place] 2.5 mg 2.5 mg 2.5 mg Communi tablet TAKE tablet TAKE tablet ty 1 TABLET BY 1 TABLET BY TAKE 1 Hospita MOUTH DAILY MOUTH DAILY TABLET BY l MOUTH Clinics DAILY OneTouch OneTouch No OneTouch [place] Delica Plus Delica Plus Delica Communi Lancet 30 Lancet 30 Plus ty gauge USE gauge USE Lancet 30 Hospita DIRECTED DIRECTED gauge USE l Clinics DIRECTED OneTouch OneTouch No OneTouch [place] Verio Flex Verio Flex Verio Flex Communi Meter USE Meter USE Meter USE ty DIRECTED DIRECTED H ospita DIRECTED l Clinics OneTouch OneTouch No OneTouch [place] Verio test Verio test Verio test Communi strips USE strips USE strips USE ty DIRECTED DIRECTED H ospita DIRECTED l Clinics Restasis Restasis No Restasis [place] 0.05 % eye 0.05 % eye 0.05 % eye Communi drops in a drops in a drops in a ty dropperette dropperette dropperett Hospita INSTILL 1 INSTILL 1 e INSTILL l DROP INTO DROP INTO 1 DROP Cli nics BOTH EYES BOTH EYES INTO BOTH TWICE A DAY TWICE A DAY EYES TWICE A DAY rosuvastati rosuvastati No rosuvastat [place] n 10 mg n 10 mg in 10 mg Commu ni tablet TAKE tablet TAKE tablet ty 1 TABLET BY 1 TABLET BY TAKE 1 Hospita MOUTH EVERY MOUTH EVERY TABLET BY l NIGHT AT NIGHT AT MOUTH Clinic s BEDTIME BEDTIME EVERY NIGHT AT BEDTIME Trulicity Trulicity No Trulicity [place] 1.5 mg/0.5 1.5 mg/0.5 1.5 mg/0.5 Communi mL mL mL ty subcutaneou subcutaneou subcutaneo Hospita s pen s pen us pen l injector injector injector Cli nics INJECT 1 INJECT 1 INJECT 1 PEN UNDER PEN UNDER PEN UNDER THE SKIN THE SKIN THE SKIN EVERY 7 EVERY 7 EVERY 7 DAYS DAYS DAYS DIRECTED DIRECTED DIRECTED Adult Low Adult Low No 1 Q1D Adult Low [place] Dose Dose Dose Communi Aspirin 81 Aspirin 81 Aspirin 81 ty mg mg mg Hospita tablet,suzanne tablet,suzanne tablet,del l yed release yed release ayed C linics Take 1 Take 1 release tablet tablet Take 1 every day every day tablet by oral by oral every day route at route at by oral bedtime. bedtime. route at bedtime. BD BD No BD [place] Ultra-Fine Ultra-Fine Ultra-Fine Communi Mini Pen Mini Pen Mini Pen ty Needle 31 Needle 31 Needle 31 Hospita gauge x gauge x gauge x l 316" USE 16" USE 12/06" USE Clinics DIRECTED DIRECTED DIRECTED DIRECTED DIRECTED DIRECTED Comfort EZ Comfort EZ No Comfort EZ [place] Pen [place] Pen [place] Pen C ommuni 31 gauge x 31 gauge x [place] 31 ty 09/26" 09/26" gauge x Hospita 09/26" l Clinics insulin insulin No insulin [place] lispro lispro lispro Communi protamine-l protamine-l protamine- ty ispro 100 ispro 100 lispro 100 Hospita unit/mL unit/mL unit/mL l (75-25) (75-25) (75-25) Clinic s subcutaneou subcutaneou subcutaneo s pen s pen us pen INJECT 23 INJECT 23 INJECT 23 UNITS UNDER UNITS UNDER UNITS THE SKIN THE SKIN UNDER THE TWICE DAILY TWICE DAILY SKIN TWICE DAILY Januvia 50 Januvia 50 No Januvia 50 [place] mg tablet mg tablet mg tablet Communi TAKE 1 TAKE 1 TAKE 1 ty TABLET BY TABLET BY TABLET BY Hospita MOUTH EVERY MOUTH EVERY MOUTH l DAY DAY EVERY DAY Clinics lisinopril lisinopril No lisinopril [place] 2.5 mg 2.5 mg 2.5 mg Communi tablet TAKE tablet TAKE tablet ty 1 TABLET BY 1 TABLET BY TAKE 1 Hospita MOUTH DAILY MOUTH DAILY TABLET BY l MOUTH Clinics DAILY OneTouch OneTouch No OneTouch [place] Delica Plus Delica Plus Delica Communi Lancet 30 Lancet 30 Plus ty gauge USE gauge USE Lancet 30 Hospita DIRECTED DIRECTED gauge USE l Clinics DIRECTED OneTouch OneTouch No OneTouch [place] Verio Flex Verio Flex Verio Flex Communi Meter USE Meter USE Meter USE ty DIRECTED DIRECTED H ospita DIRECTED l Clinics OneTouch OneTouch No OneTouch [place] Verio test Verio test Verio test Communi strips USE strips USE strips USE ty DIRECTED DIRECTED H ospita DIRECTED l Clinics Restasis Restasis No Restasis [place] 0.05 % eye 0.05 % eye 0.05 % eye Communi drops in a drops in a drops in a ty dropperette dropperette dropperett Hospita INSTILL 1 INSTILL 1 e INSTILL l DROP INTO DROP INTO 1 DROP Cli nics BOTH EYES BOTH EYES INTO BOTH TWICE A DAY TWICE A DAY EYES TWICE A DAY rosuvastati rosuvastati No rosuvastat [place] n 10 mg n 10 mg in 10 mg Commu ni tablet TAKE tablet TAKE tablet ty 1 TABLET BY 1 TABLET BY TAKE 1 Hospita MOUTH EVERY MOUTH EVERY TABLET BY l NIGHT AT NIGHT AT MOUTH Clinic s BEDTIME BEDTIME EVERY NIGHT AT BEDTIME Trulicity Trulicity No Trulicity [place] 1.5 mg/0.5 1.5 mg/0.5 1.5 mg/0.5 Communi mL mL mL ty subcutaneou subcutaneou subcutaneo Hospita s pen s pen us pen l injector injector injector Cli nics INJECT 1 INJECT 1 INJECT 1 PEN UNDER PEN UNDER PEN UNDER THE SKIN THE SKIN THE SKIN EVERY 7 EVERY 7 EVERY 7 DAYS DAYS DAYS DIRECTED DIRECTED DIRECTED Adult Low Adult Low No 1 Q1D Adult Low [place] Dose Dose Dose Communi Aspirin 81 Aspirin 81 Aspirin 81 ty mg mg mg Hospita tablet,suzanne tablet,suzanne tablet,del l yed release yed release ayed C linics Take 1 Take 1 release tablet tablet Take 1 every day every day tablet by oral by oral every day route at route at by oral bedtime. bedtime. route at bedtime. Comfort EZ Comfort EZ No Comfort EZ [place] Pen [place] Pen [place] Pen C ommuni 31 gauge x 31 gauge x [place] 31 ty 4" 14" gauge x Hospita 09/26" l Clinics Humalog Mix Humalog Mix No Humalog [place] 75-25 75-25 Mix 75-25 Communi KwikPen KwikPen KwikPen ty U-100 U-100 U-100 Hospita insulin 100 insulin 100 insulin l unit/mL unit/mL 100 Clinics subcutaneou subcutaneou unit/mL s pen s pen subcutaneo Inject 20 U Inject 20 U us pen SQ BID SQ BID Inject 20 U SQ BID lisinopril lisinopril No lisinopril [place] 2.5 mg 2.5 mg 2.5 mg [facility] tablet 1 PO tablet 1 PO tablet 1 ty QD [facility]D [facility] mel[facility] melatonin No 1capsul Q1D melatonin [place] 10 mg 10 mg e(s) 10 mg [facility] capsule capsule capsule ty Take 1 Take 1 Take 1 [facility]ospita capsule capsule capsule l every day every day every day Clinics by oral by oral by oral route in route in route in the the the evening. evening. evening. OTC OTC OTC meloxicam meloxicam No 1 Q1D meloxicam [place] 15 mg 15 mg 15 mg [facility] tablet Take tablet Take tablet ty 1 tablet 1 tablet Take 1 Hospi ta every day every day tablet l by oral by oral every day Clin ics route. route. by oral route. metformin metformin No metformin [place] 1,000 mg 1,000 mg 1,000 mg Com amy tablet 1 PO tablet 1 PO tablet 1 ty BID BID PO BID [employer] rosuvastati rosuvastati No rosuvastat [place] n 10 mg n 10 mg in 10 mg Commu ni tablet 1 PO tablet 1 PO tablet 1 ty qd qd PO qd [employer] Adult Low Adult Low No 1 Q1D Adult Low [place] Dose Dose Dose [facility] Aspirin 81 Aspirin 81 Aspirin 81 ty mg mg mg [facility]osp[facility] tablet,suzanne tablet,suzanne tablet,del l yed release yed release ayed C linics Take 1 Take 1 release tablet tablet Take 1 every day every day tablet by oral by oral every day route at route at by oral bedtime. bedtime. route at bedtime. atorvastati atorvastati No atorvastat [place] n 80 mg n 80 mg in 80 mg Commu ni tablet tablet tablet ty Hospita l Clinics Comfort EZ Comfort EZ No Comfort EZ [place] Pen [place] Pen [facility] 31 gauge x 31 gauge x [place] 31 ty 09/26" 09/26" gauge x [facility]ospita 09/26" l Clinics Humalog Mix Humalog Mix No Humalog [place] 75-25 75-25 Mix 75-25 [facility] KwikPen KwikPen KwikPen ty U-100 U-100 U-100 [facility]ospita insulin 100 insulin 100 insulin l unit/mL unit/mL 100 Clinics subcutaneou subcutaneou unit/mL s pen s pen subcutaneo Inject 23 U Inject 23 U us pen SQ BID SQ BID Inject 23 U SQ BID lisinopril lisinopril No lisinopril [place] 2.5 mg 2.5 mg 2.5 mg [facility] tablet 1 PO tablet 1 PO tablet 1 ty QD QD PO QD [employer] meloxicam meloxicam No 1 Q1D meloxicam [place] 15 mg 15 mg 15 mg [facility] tablet Take tablet Take tablet ty 1 tablet 1 tablet Take 1 Hospi ta every day every day tablet l by oral by oral every day Clin ics route. route. by oral route. metformin metformin No metformin [place] 1,000 mg 1,000 mg 1,000 mg Com amy tablet 1 PO tablet 1 PO tablet 1 ty BID BID PO BID [employer] rosuvastati rosuvastati No rosuvastat [place] n 10 mg n 10 mg in 10 mg Commu ni tablet 1 PO tablet 1 PO tablet 1 ty qd qd PO qd [employer] Adult Low Adult Low No 1 Q1D Adult Low [place] Dose Dose Dose [facility] Aspirin 81 Aspirin 81 Aspirin 81 ty mg mg mg [facility]osp[facility] tablet,suzanne tablet,suzanne tablet,del l yed release yed release ayed C linics Take 1 Take 1 release tablet tablet Take 1 every day every day tablet by oral by oral every day route at route at by oral bedtime. bedtime. route at bedtime. Comfort EZ Comfort EZ No Comfort EZ [place] Pen [place] Pen [place] Pen [facility] 31 gauge x 31 gauge x [place] 31 ty 09/26" 09/26" gauge x Hospita 09/26" l [facility] Humalog Mix Humalog Mix No Humalog [place] 75-25 75-25 Mix 75-25 [facility] KwikPen KwikPen KwikPen ty U-100 U-100 U-100 [facility]ospita insulin 100 insulin 100 insulin l unit/mL unit/mL 100 Clinics subcutaneou subcutaneou unit/mL s pen s pen subcutaneo Inject 23 U Inject 23 U us pen SQ BID SQ BID Inject 23 U SQ BID lisinopril lisinopril No lisinopril [place] 2.5 mg 2.5 mg 2.5 mg [facility] tablet 1 PO tablet 1 PO tablet 1 ty QD QD PO QD [employer] meloxicam meloxicam No 1 Q1D meloxicam [place] 15 mg 15 mg 15 mg [facility] tablet Take tablet Take tablet ty 1 tablet 1 tablet Take 1 Hospi ta every day every day tablet l by oral by oral every day Clin ics route. route. by oral route. metformin metformin No metformin [place] 1,000 mg 1,000 mg 1,000 mg Com amy tablet 1 PO tablet 1 PO tablet 1 ty BID BID PO BID [employer] rosuvastati rosuvastati No rosuvastat [place] n 10 mg n 10 mg in 10 mg Commu ni tablet 1 PO tablet 1 PO tablet 1 ty qd qd PO qd [employer] Adult Low Adult Low No 1 Q1D Adult Low [place] Dose Dose Dose [facility] Aspirin 81 Aspirin 81 Aspirin 81 ty mg mg mg [facility] tablet,suzanne tablet,suzanne tablet,del l yed release yed release ayed C linics Take 1 Take 1 release tablet tablet Take 1 every day every day tablet by oral by oral every day route at route at by oral bedtime. bedtime. route at bedtime. butalbital- butalbital- No butalbital [place] acetaminoph acetaminoph -acetamino [facility] en-caffeine en-caffeine phen-caffe ty 50 mg-325 50 mg-325 ine 50 Hos myriam mg-40 mg mg-40 mg mg-325 l tablet Take tablet Take mg-40 mg Clinics 1 tablet Q 1 tablet Q tablet 12 hours 12 hours Take 1 PRN PRN tablet Q 12 hours PRN Comfort EZ Comfort EZ No Comfort EZ [place] Pen [place] Pen [place] Pen [facility] 31 gauge x 31 gauge x [place] 31 ty 09/26" 09/26" gauge x Hospita 09/26" l Clinics Humalog Mix Humalog Mix No Humalog [place] 75-25 75-25 Mix 75-25 [facility] KwikPen KwikPen KwikPen ty U-100 U-100 U-100 [facility]ospita insulin 100 insulin 100 insulin l unit/mL unit/mL 100 Clinics subcutaneou subcutaneou unit/mL s pen s pen subcutaneo Inject 23 U Inject 23 U us pen SQ BID SQ BID Inject 23 U SQ BID lisinopril lisinopril No lisinopril [place] 2.5 mg 2.5 mg 2.5 mg [facility] tablet 1 PO tablet 1 PO tablet 1 ty QD [facility]D [facility] meloxicam meloxicam No 1 Q1D meloxicam [place] 15 mg 15 mg 15 mg [facility] tablet Take tablet Take tablet ty 1 tablet 1 tablet Take 1 Hospi ta every day every day tablet l by oral by oral every day Clin ics route as route as by oral needed. needed. route as needed. rosuvastati rosuvastati No rosuvastat [place] n 10 mg n 10 mg in 10 mg Commu ni tablet 1 PO tablet 1 PO tablet 1 ty qd qd PO qd [employer] topiramate topiramate No topiramate [place] 25 mg 25 mg 25 mg [facility] tablet Take tablet Take tablet ty 1 tablet by 1 tablet by Take 1 Hospita mouth BID mouth BID tablet by l mouth BID [facility] Trulicity Trulicity No 1mL Q1W Trulicity [place] 1.5 mg/0.5 1.5 mg/0.5 1.5 mg/0.5 [facility] mL mL mL ty subcutaneou subcutaneou subcutaneo Hospita s pen s pen us pen l injector injector injector Cli nics Inject 1 mL Inject 1 mL Inject 1 every week every week mL every by by week by subcutaneou subcutaneou subcutaneo s route. s route. us route. Adult Low Adult Low No 1 Q1D Adult Low [place] Dose Dose Dose [facility] Aspirin 81 Aspirin 81 Aspirin 81 ty mg mg mg [facility] tablet,suzanne tablet,suzanne tablet,del l yed release yed release ayed C linics Take 1 Take 1 release tablet tablet Take 1 every day every day tablet by oral by oral every day route at route at by oral bedtime. bedtime. route at bedtime. Comfort EZ Comfort EZ No Comfort EZ [place] Pen [place] Pen [place] Pen C [facility] 31 gauge x 31 gauge x [place] 31 ty 09/26" 09/26" gauge x Hospita 09/26" l Clinics gabapentin gabapentin No gabapentin [place] 100 mg 100 mg 100 mg [facility] capsule PRN capsule PRN capsule ty [facility]N [facility] Humalog Mix Humalog Mix No 25mL BID Humalog [place] 75-25 75-25 Mix 75-25 [facility] KwikPen KwikPen KwikPen ty U-100 U-100 U-100 [facility]osp[facility] insulin 100 insulin 100 insulin l unit/mL unit/mL 100 Clinics subcutaneou subcutaneou unit/mL s pen s pen subcutaneo Inject 25 Inject 25 us pen mL twice a mL twice a Inject 25 day by day by mL twice a subcutaneou subcutaneou day by s route. s route. subcutaneo us route. lisinopril lisinopril No lisinopril [place] 2.5 mg 2.5 mg 2.5 mg [facility] tablet 1 PO tablet 1 PO tablet 1 ty QD QD PO QD [employer] meloxicam meloxicam No 1 Q1D meloxicam [place] 15 mg 15 mg 15 mg [facility] tablet Take tablet Take tablet ty 1 tablet 1 tablet Take 1 Hospi ta every day every day tablet l by oral by oral every day Clin ics route as route as by oral needed. needed. route as needed. rosuvastati rosuvastati No rosuvastat [place] n 10 mg n 10 mg in 10 mg Commu ni tablet 1 PO tablet 1 PO tablet 1 ty qd qd PO qd [employer] topiramate topiramate No topiramate [place] 50 mg 50 mg 50 mg [facility] tablet Take tablet Take tablet ty 1 tablet 1 tablet Take 1 Hospi ta daily by daily by tablet l mouth mouth daily by Clinics mouth Trulicity Trulicity No Trulicity [place] 1.5 mg/0.5 1.5 mg/0.5 1.5 mg/0.5 [facility] mL mL mL ty subcutaneou subcutaneou subcutaneo Hospita s pen s pen us pen l injector injector injector Cli nics Inject 1 mL Inject 1 mL Inject 1 every week every week mL every by by week by subcutaneou subcutaneou subcutaneo s route. s route. us route. Adult Low Adult Low No 1 Q1D Adult Low [place] Dose Dose Dose [facility] Aspirin 81 Aspirin 81 Aspirin 81 ty mg mg mg [facility] tablet,suzanne tablet,suzanne tablet,del l yed release yed release ayed C linics Take 1 Take 1 release tablet tablet Take 1 every day every day tablet by oral by oral every day route at route at by oral bedtime. bedtime. route at bedtime. Comfort EZ Comfort EZ No Comfort EZ [place] Pen [place] Pen [place] Pen [facility] 31 gauge x 31 gauge x [place] 31 ty 09/26" 09/26" gauge x [facility]osp[facility] 09/26" l Clinics gabapentin gabapentin No gabapentin [place] 100 mg 100 mg 100 mg [facility] capsule PRN capsule PRN capsule ty [facility]N [facility] Humalog Mix Humalog Mix No 25mL BID Humalog [place] 75-25 75-25 Mix 75-25 [facility] KwikPen KwikPen KwikPen ty U-100 U-100 U-100 [facility]osp[facility] insulin 100 insulin 100 insulin l unit/mL unit/mL 100 Clinics subcutaneou subcutaneou unit/mL s pen s pen subcutaneo Inject 25 Inject 25 us pen mL twice a mL twice a Inject 25 day by day by mL twice a subcutaneou subcutaneou day by s route. s route. subcutaneo us route. lisinopril lisinopril No lisinopril [place] 2.5 mg 2.5 mg 2.5 mg [facility] tablet 1 PO tablet 1 PO tablet 1 ty QD QD PO QD [employer] meloxicam meloxicam No 1 Q1D meloxicam [place] 15 mg 15 mg 15 mg [facility] tablet Take tablet Take tablet ty 1 tablet 1 tablet Take 1 Hospi ta every day every day tablet l by oral by oral every day Clin ics route as route as by oral needed. needed. route as needed. rosuvastati rosuvastati No rosuvastat [place] n 10 mg n 10 mg in 10 mg Commu ni tablet 1 PO tablet 1 PO tablet 1 ty qd qd PO qd [employer] topiramate topiramate No topiramate [place] 50 mg 50 mg 50 mg [facility] tablet Take tablet Take tablet ty 1 tablet 1 tablet Take 1 Hospi ta daily by daily by tablet l mouth mouth daily by Clinics mouth Trulicity Trulicity No Trulicity [place] 1.5 mg/0.5 1.5 mg/0.5 1.5 mg/0.5 [facility] mL mL mL ty subcutaneou subcutaneou subcutaneo Hospita s pen s pen us pen l injector injector injector Cli nics Inject 1 mL Inject 1 mL Inject 1 every week every week mL every by by week by subcutaneou subcutaneou subcutaneo s route. s route. us route. Adult Low Adult Low No 1 Q1D Adult Low [place] Dose Dose Dose [facility] Aspirin 81 Aspirin 81 Aspirin 81 ty mg mg mg [facility] tablet,suzanne tablet,suzanne tablet,del l yed release yed release ayed C linics Take 1 Take 1 release tablet tablet Take 1 every day every day tablet by oral by oral every day route at route at by oral bedtime. bedtime. route at bedtime. BD BD No BD [place] Ultra-Fine Ultra-Fine Ultra-Fine [facility] Mini Pen Mini Pen Mini Pen ty Needle 31 Needle 31 Needle 31 Hospita gauge x gauge x gauge x l 3/16" USE 316" USE 316" USE Clinics DIRECTED DIRECTED DIRECTED DIRECTED DIRECTED DIRECTED Comfort EZ Comfort EZ No Comfort EZ [place] Pen [place] Pen [place] Pen [facility] 31 gauge x 31 gauge x [place] 31 ty 1/4" 4" gauge x [facility]osp[facility] 09/26" l Clinics Humalog Mix Humalog Mix No Humalog [place] 75-25 75-25 Mix 75-25 [facility] KwikPen KwikPen KwikPen ty U-100 U-100 U-100 [facility] insulin 100 insulin 100 insulin l unit/mL unit/mL 100 Clinics subcutaneou subcutaneou unit/mL s pen s pen subcutaneo INJECT 25 INJECT 25 us pen UNITS UNDER UNITS UNDER INJECT 25 THE SKIN 2 THE SKIN 2 UNITS TIMES A DAY TIMES A DAY UNDER THE DIRECTED DIRECTED SKIN 2 TIMES A DAY DIRECTED lisinopril lisinopril No lisinopril [place] 2.5 mg 2.5 mg 2.5 mg [facility] tablet TAKE tablet TAKE tablet ty 1 TABLET BY 1 TABLET BY TAKE 1 [facility]ospita MOUTH DAILY MOUTH DAILY TABLET BY l MOUTH Clinics DAILY Restasis Restasis No Restasis [place] 0.05 % eye 0.05 % eye 0.05 % eye [facility] drops in a drops in a drops in a ty dropperette dropperette dropperett [facility]osp[facility] INSTILL 1 INSTILL 1 e INSTILL l DROP INTO DROP INTO 1 DROP Cli nics BOTH EYES BOTH EYES INTO BOTH TWICE A DAY TWICE A DAY EYES TWICE A DAY rosuvastati rosuvastati No rosuvastat [place] n 10 mg n 10 mg in 10 mg Commu ni tablet TAKE tablet TAKE tablet ty 1 TABLET BY 1 TABLET BY TAKE 1 [facility]ospita MOUTH EVERY MOUTH EVERY TABLET BY l NIGHT AT NIGHT AT MOUTH Clinic s BEDTIME BEDTIME EVERY NIGHT AT BEDTIME Trulicity Trulicity No Trulicity [place] 1.5 mg/0.5 1.5 mg/0.5 1.5 mg/0.5 [facility] mL mL mL ty subcutaneou subcutaneou subcutaneo [facility]ospita s pen s pen us pen l injector injector injector Cli nics INJECT 1 INJECT 1 INJECT 1 PEN UNDER PEN UNDER PEN UNDER THE SKIN THE SKIN THE SKIN EVERY 7 EVERY 7 EVERY 7 DAYS DAYS DAYS Adult Low Adult Low No 1 Q1D Adult Low [place] Dose Dose Dose [facility] Aspirin 81 Aspirin 81 Aspirin 81 ty mg mg mg [facility] tablet,suzanne tablet,suzanne tablet,del l yed release yed release ayed C linics Take 1 Take 1 release tablet tablet Take 1 every day every day tablet by oral by oral every day route at route at by oral bedtime. bedtime. route at bedtime. BD BD No BD [place] Ultra-Fine Ultra-Fine Ultra-Fine [facility] Mini Pen Mini Pen Mini Pen ty Needle 31 Needle 31 Needle 31 [facility]osp[facility] gauge x gauge x gauge x l 3/16" USE 316" USE 316" USE Clinics DIRECTED DIRECTED DIRECTED DIRECTED DIRECTED DIRECTED Comfort EZ Comfort EZ No Comfort EZ [place] Pen [place] Pen [place] Pen [facility] 31 gauge x 31 gauge x [place] 31 ty 1/4" 1/4" gauge x [facility]osp[facility] 1/4" l Clinics Humalog Mix Humalog Mix No Humalog [place] 75-25 75-25 Mix 75-25 [facility] KwikPen KwikPen KwikPen ty U-100 U-100 U-100 [facility]osp[facility] insulin 100 insulin 100 insulin l unit/mL unit/mL 100 Clinics subcutaneou subcutaneou unit/mL s pen s pen subcutaneo INJECT 23 INJECT 23 us pen UNITS UNDER UNITS UNDER INJECT 23 THE SKIN 2 THE SKIN 2 UNITS TIMES A DAY TIMES A DAY UNDER THE DIRECTED DIRECTED SKIN 2 TIMES A DAY DIRECTED lisinopril lisinopril No lisinopril [place] 2.5 mg 2.5 mg 2.5 mg [facility] tablet TAKE tablet TAKE tablet ty 1 TABLET BY 1 TABLET BY TAKE 1 [facility] MOUTH DAILY MOUTH DAILY TABLET BY l MOUTH Clinics DAILY Restasis Restasis No Restasis [place] 0.05 % eye 0.05 % eye 0.05 % eye [facility] drops in a drops in a drops in a ty dropperette dropperette dropperett [facility]osp[facility] INSTILL 1 INSTILL 1 e INSTILL l DROP INTO DROP INTO 1 DROP Cli nics BOTH EYES BOTH EYES INTO BOTH TWICE A DAY TWICE A DAY EYES TWICE A DAY rosuvastati rosuvastati No rosuvastat [place] n 10 mg n 10 mg in 10 mg Commu ni tablet TAKE tablet TAKE tablet ty 1 TABLET BY 1 TABLET BY TAKE 1 [facility]ospita MOUTH EVERY MOUTH EVERY TABLET BY l NIGHT AT NIGHT AT MOUTH Clinic s BEDTIME BEDTIME EVERY NIGHT AT BEDTIME Trulicity Trulicity No Trulicity [place] 1.5 mg/0.5 1.5 mg/0.5 1.5 mg/0.5 [facility] mL mL mL ty subcutaneou subcutaneou subcutaneo [facility]ospita s pen s pen us pen l injector injector injector Cli nics INJECT 1 INJECT 1 INJECT 1 PEN UNDER PEN UNDER PEN UNDER THE SKIN THE SKIN THE SKIN EVERY 7 EVERY 7 EVERY 7 DAYS DAYS DAYS Adult Low Adult Low No 1 Q1D Adult Low [place] Dose Dose Dose [facility] Aspirin 81 Aspirin 81 Aspirin 81 ty mg mg mg [facility] tablet,suzanne tablet,suzanne tablet,del l yed release yed release ayed C linics Take 1 Take 1 release tablet tablet Take 1 every day every day tablet by oral by oral every day route at route at by oral bedtime. bedtime. route at bedtime. BD BD No BD [place] Ultra-Fine Ultra-Fine Ultra-Fine [facility] Mini Pen Mini Pen Mini Pen ty Needle 31 Needle 31 Needle 31 [facility]osp[facility] gauge x gauge x gauge x l 316" USE 316" USE 12/06" USE Clinics DIRECTED DIRECTED DIRECTED DIRECTED DIRECTED DIRECTED Comfort EZ Comfort EZ No Comfort EZ [place] Pen [place] Pen [place] Pen [facility] 31 gauge x 31 gauge x [place] 31 ty 09/26" /4" gauge x [facility]osp[facility] 09/26" l Clinics Humalog Mix Humalog Mix No Humalog [place] 75-25 75-25 Mix 75-25 [facility] Brenda Gutierrez ty U-100 U-100 U-100 [facility]osp[facility] insulin 100 insulin 100 insulin l unit/mL unit/mL 100 Clinics subcutaneou subcutaneou unit/mL s pen s pen subcutaneo INJECT 25 INJECT 25 us pen UNITS UNDER UNITS UNDER INJECT 25 THE SKIN 2 THE SKIN 2 UNITS TIMES A DAY TIMES A DAY UNDER THE DIRECTED DIRECTED SKIN 2 TIMES A DAY DIRECTED lisinopril lisinopril No lisinopril [place] 2.5 mg 2.5 mg 2.5 mg [facility] tablet TAKE tablet TAKE tablet ty 1 TABLET BY 1 TABLET BY TAKE 1 [facility] MOUTH DAILY MOUTH DAILY TABLET BY l MOUTH Clinics DAILY Restasis Restasis No Restasis [place] 0.05 % eye 0.05 % eye 0.05 % eye [facility] drops in a drops in a drops in a ty dropperette dropperette dropperett [facility] INSTILL 1 INSTILL 1 e INSTILL l DROP INTO DROP INTO 1 DROP Cli nics BOTH EYES BOTH EYES INTO BOTH TWICE A DAY TWICE A DAY EYES TWICE A DAY rosuvastati rosuvastati No rosuvastat [place] n 10 mg n 10 mg in 10 mg Commu ni tablet TAKE tablet TAKE tablet ty 1 TABLET BY 1 TABLET BY TAKE 1 [facility] MOUTH EVERY MOUTH EVERY TABLET BY l NIGHT AT NIGHT AT MOUTH Clinic s BEDTIME BEDTIME EVERY NIGHT AT BEDTIME Trulicity Trulicity No Trulicity [place] 1.5 mg/0.5 1.5 mg/0.5 1.5 mg/0.5 [facility] mL mL mL ty subcutaneou subcutaneou subcutaneo [facility]osp[facility] s pen s pen us pen l injector injector injector Cli nics INJECT 1 INJECT 1 INJECT 1 PEN UNDER PEN UNDER PEN UNDER THE SKIN THE SKIN THE SKIN EVERY 7 EVERY 7 EVERY 7 DAYS DAYS DAYS DIRECTED DIRECTED DIRECTED Adult Low Adult Low No 1 Q1D Adult Low [place] Dose Dose Dose [facility] Aspirin 81 Aspirin 81 Aspirin 81 ty mg mg mg [facility] tablet,suzanne tablet,suzanne tablet,del l yed release yed release ayed C linics Take 1 Take 1 release tablet tablet Take 1 every day every day tablet by oral by oral every day route at route at by oral bedtime. bedtime. route at bedtime. azithromyci azithromyci No azithromyc [place] n 250 mg n 250 mg in 250 mg Co [facility] tablet TAKE tablet TAKE tablet ty 2 TABLETS 2 TABLETS TAKE 2 Hos myriam (500 MG) BY (500 MG) BY TABLETS l ORAL ROUTE ORAL ROUTE (500 MG) Clinics ONCE DAILY ONCE DAILY BY ORAL FOR 1 DAY FOR 1 DAY ROUTE ONCE THEN 1 THEN 1 DAILY FOR TABLET (250 TABLET (250 1 DAY THEN MG) BY ORAL MG) BY ORAL 1 TABLET ROUTE ONCE ROUTE ONCE (250 MG) DAILY FOR 4 DAILY FOR 4 BY ORAL DAYS DAYS ROUTE ONCE DAILY FOR 4 DAYS BD BD No BD [place] Ultra-Fine Ultra-Fine Ultra-Fine [facility] Mini Pen Mini Pen Mini Pen ty Needle 31 Needle 31 Needle 31 [facility]osp[facility] gauge x gauge x gauge x l 12/06" USE 12/06" USE 12/06" USE Clinics DIRECTED DIRECTED DIRECTED DIRECTED DIRECTED DIRECTED Comfort EZ Comfort EZ No Comfort EZ [place] Pen [place] Pen [place] Pen [facility] 31 gauge x 31 gauge x [place] 31 ty 09/26" 09/26" gauge x [facility]osp[facility] 09/26" l Clinics Humalog Mix Humalog Mix No Humalog [place] 75-25 75-25 Mix 75-25 [facility] KwikPen KwikPen KwikPen ty U-100 U-100 U-100 [facility]osp[facility] insulin 100 insulin 100 insulin l unit/mL unit/mL 100 Clinics subcutaneou subcutaneou unit/mL s pen s pen subcutaneo INJECT 25 INJECT 25 us pen UNITS UNDER UNITS UNDER INJECT 25 THE SKIN 2 THE SKIN 2 UNITS TIMES A DAY TIMES A DAY UNDER THE DIRECTED DIRECTED SKIN 2 TIMES A DAY DIRECTED lisinopril lisinopril No lisinopril [place] 2.5 mg 2.5 mg 2.5 mg [facility] tablet TAKE tablet TAKE tablet ty 1 TABLET BY 1 TABLET BY TAKE 1 [facility] MOUTH DAILY MOUTH DAILY TABLET BY l MOUTH Clinics DAILY Paxlovid Paxlovid No Paxlovid [place] 300 mg (150 300 mg (150 300 mg [facility] mg x 2)-100 mg x 2)-100 (150 mg x ty mg tablets mg tablets 2)-100 mg [facility]osp[facility] in a dose in a dose tablets in l pack (EUA) pack (EUA) a dose C linics 3 tabs PO 3 tabs PO pack (EUA) bid x 5 bid x 5 3 tabs PO days days bid x 5 days Restasis Restasis No Restasis [place] 0.05 % eye 0.05 % eye 0.05 % eye [facility] drops in a drops in a drops in a ty dropperette dropperette dropperett [facility] INSTILL 1 INSTILL 1 e INSTILL l DROP INTO DROP INTO 1 DROP Cli nics BOTH EYES BOTH EYES INTO BOTH TWICE A DAY TWICE A DAY EYES TWICE A DAY rosuvastati rosuvastati No rosuvastat [place] n 10 mg n 10 mg in 10 mg Commu ni tablet TAKE tablet TAKE tablet ty 1 TABLET BY 1 TABLET BY TAKE 1 [facility] MOUTH EVERY MOUTH EVERY TABLET BY l NIGHT AT NIGHT AT MOUTH Clinic s BEDTIME BEDTIME EVERY NIGHT AT BEDTIME Trulicity Trulicity No Trulicity [place] 1.5 mg/0.5 1.5 mg/0.5 1.5 mg/0.5 [facility] mL mL mL ty subcutaneou subcutaneou subcutaneo [facility]ospita s pen s pen us pen l injector injector injector Cli nics INJECT 1 INJECT 1 INJECT 1 PEN UNDER PEN UNDER PEN UNDER THE SKIN THE SKIN THE SKIN EVERY 7 EVERY 7 EVERY 7 DAYS DAYS DAYS DIRECTED DIRECTED DIRECTED Adult Low Adult Low No 1 Q1D Adult Low [place] Dose Dose Dose [facility] Aspirin 81 Aspirin 81 Aspirin 81 ty mg mg mg [facility] tablet,suzanne tablet,suzanne tablet,del l yed release yed release ayed C linics Take 1 Take 1 release tablet tablet Take 1 every day every day tablet by oral by oral every day route at route at by oral bedtime. bedtime. route at bedtime. BD BD No BD [place] Ultra-Fine Ultra-Fine Ultra-Fine [facility] Mini Pen Mini Pen Mini Pen ty Needle 31 Needle 31 Needle 31 [facility] gauge x gauge x gauge x l 3/16" USE 316" USE 12/06" USE Clinics DIRECTED DIRECTED DIRECTED DIRECTED DIRECTED DIRECTED Comfort EZ Comfort EZ No Comfort EZ [place] Pen [place] Pen [place] Pen [facility] 31 gauge x 31 gauge x [place] 31 ty 1/4" 1/4" gauge x [facility] 09/26" l Clinics Humalog Mix Humalog Mix No Humalog [place] 75-25 75-25 Mix 75-25 [facility] Brenda Gutierrez ty U-100 U-100 U-100 [facility]osp[facility] insulin 100 insulin 100 insulin l unit/mL unit/mL 100 Clinics subcutaneou subcutaneou unit/mL s pen s pen subcutaneo INJECT 23 INJECT 23 us pen UNITS UNDER UNITS UNDER INJECT 23 THE SKIN THE SKIN UNITS TWICE DAILY TWICE DAILY UNDER THE SKIN TWICE DAILY Januvia 50 Januvia 50 No 1 Q1D Januvia 50 [place] mg tablet mg tablet mg tablet [facility] Take 1 Take 1 Take 1 ty tablet tablet tablet [facility]osp[facility] every day every day every day l by oral by oral by oral Clinic s route. route. route. lisinopril lisinopril No lisinopril [place] 2.5 mg 2.5 mg 2.5 mg [facility] tablet TAKE tablet TAKE tablet ty 1 TABLET BY 1 TABLET BY TAKE 1 [facility] MOUTH DAILY MOUTH DAILY TABLET BY l MOUTH Clinics DAILY Restasis Restasis No Restasis [place] 0.05 % eye 0.05 % eye 0.05 % eye [facility] drops in a drops in a drops in a ty dropperette dropperette dropperett [facility] INSTILL 1 INSTILL 1 e INSTILL l DROP INTO DROP INTO 1 DROP Cli nics BOTH EYES BOTH EYES INTO BOTH TWICE A DAY TWICE A DAY EYES TWICE A DAY rosuvastati rosuvastati No rosuvastat [place] n 10 mg n 10 mg in 10 mg Commu ni tablet TAKE tablet TAKE tablet ty 1 TABLET BY 1 TABLET BY TAKE 1 [facility] MOUTH EVERY MOUTH EVERY TABLET BY l NIGHT AT NIGHT AT MOUTH Clinic s BEDTIME BEDTIME EVERY NIGHT AT BEDTIME Trulicity Trulicity No Trulicity [place] 1.5 mg/0.5 1.5 mg/0.5 1.5 mg/0.5 [facility] mL mL mL ty subcutaneou subcutaneou subcutaneo [facility]ospita s pen s pen us pen l injector injector injector Cli nics INJECT 1 INJECT 1 INJECT 1 PEN UNDER PEN UNDER PEN UNDER THE SKIN THE SKIN THE SKIN EVERY 7 EVERY 7 EVERY 7 DAYS DAYS DAYS DIRECTED DIRECTED DIRECTED Adult Low Adult Low No 1 Q1D Adult Low [place] Dose Dose Dose [facility] Aspirin 81 Aspirin 81 Aspirin 81 ty mg mg mg [facility] tablet,suzanne tablet,suzanne tablet,del l yed release yed release caitlin whitman Take 1 Take 1 release tablet tablet Take 1 every day every day tablet by oral by oral every day route at route at by oral bedtime. bedtime. route at bedtime. BD BD No BD [place] Ultra-Fine Ultra-Fine Ultra-Fine [facility] Mini Pen Mini Pen Mini Pen ty Needle 31 Needle 31 Needle 31 [facility]osp[facility] gauge x gauge x gauge x l 316" USE 316" USE 16" USE Clinics DIRECTED DIRECTED DIRECTED DIRECTED DIRECTED DIRECTED Comfort EZ Comfort EZ No Comfort EZ [place] [facility] [place] Pen C ommuni 31 gauge x 31 gauge x [place] 31 ty /4" 14" gauge x Hospita 4" l Clinics Immunizations Ordered Immunization Filled Immunization Date Status Commen ts Source Name Name Influenza, Influenza, 2021-09-14 Completed [place] [facility] injectable, MDCK, injectable, MDCK, 16:58:00 Hospital Clin[facility] preservative free, preservative free, quadrivalent quadrivalent Influenza, Influenza, 2021-09-14 Completed [place] [facility] injectable, MDCK, injectable, MDCK, 16:58:00 Hospital Clinics preservative free, preservative free, quadrivalent quadrivalent Influenza, Influenza, 2021-09-14 Completed [place] [facility] injectable, MDCK, injectable, MDCK, 16:58:00 Hospital Clinics preservative free, preservative free, quadrivalent quadrivalent Influenza, Influenza, 2021-09-14 Completed [place] [facility] injectable, MDCK, injectable, MDCK, 16:58:00 Hospital Clinics preservative free, preservative free, quadrivalent quadrivalent Influenza, Influenza, 2021-09-14 Completed [place] [facility] injectable, MDCK, injectable, MDCK, 16:58:00 Hospital Clinics preservative free, preservative free, quadrivalent quadrivalent Influenza, Influenza, 2021-09-14 Completed [place] [facility] injectable, MDCK, injectable, MDCK, 16:58:00 Hospital Clinics preservative free, preservative free, quadrivalent quadrivalent Influenza, Influenza, 2021-09-14 Completed [place] [facility] injectable, MDCK, injectable, MDCK, 16:58:00 Hospital Clinics preservative free, preservative free, quadrivalent quadrivalent pneumococcal 2019-09-23 Completed Latasha garcia 23-valent 00:00:00 vaccine<sup>1</sup> influenza virus 2019-09-23 Completed [facility] vaccine, 00:00:00 inactivated<sup>2</s up> Vital Signs Vital Name Observation Time Observation Value Comments Source BP Diastolic 2022-06-14 70 mm[Hg] [place] [facility] Height 2022-06-14 63.5 [in_i] [place] [facility] 00:[facility] BMI (Body Mass 2022-06-14 39.9 kg/m2 [place] [facility] Index) 00:00:00 [facility] BP Systolic 2022-06-14 118 mm[Hg] [place] [facility] 00[facility] Body Weight 2022-06-14 3664 [oz_av] [place] [facility] 00:[facility] BP Diastolic 2022-06-07 59 mm[Hg] [place] [facility] 00:[facility] Height 2022-06-07 63.5 [in_i] [place] [facility] 00:[facility] BMI (Body Mass 2022-06-07 39.8 kg/m2 [place] [facility] Index) 00:00:00 [facility] BP Systolic 2022-06-07 120 mm[Hg] [place] [facility] 00:[facility] Body Weight 2022-06-07 3648 [oz_av] [place] [facility] 00:[facility] Height 2022-04-23 63.5 [in_i] [place] [facility] 00:[facility] BP Diastolic 2022-03-06 74 mm[Hg] [place] [facility] 00:[facility] Height 2022-03-06 63.5 [in_i] [place] [facility] 00:[facility] BMI (Body Mass 2022-03-06 40.3 kg/m2 [place] [facility] Index) 00:00:00 [facility] BP Systolic 2022-03-06 132 mm[Hg] [place] [facility] 00:[facility] Body Weight 2022-03-06 3696 [oz_av] [place] [facility] 00:[facility] BP Diastolic 2022-01-18 82 mm[Hg] [place] [facility] 00:[facility] Height 2022-01-18 63.5 [in_i] [place] [facility] 00:[facility] BMI (Body Mass 2022-01-18 40.3 kg/m2 [place] [facility] Index) 00:00:00 [facility] BP Systolic 2022-01-18 140 mm[Hg] [place] [facility] 00:[facility] Body Weight 2022-01-18 3696 [oz_av] [place] [facility] 00:[facility] BP Diastolic 2021-12-08 62 mm[Hg] [place] [facility] 00:[facility] Height 2021-12-08 63.5 [in_i] [place] [facility] 00:[facility] BMI (Body Mass 2021-12-08 39.6 kg/m2 [place] [facility] Index) 00:00:00 [facility] BP Systolic 2021-12-08 116 mm[Hg] [place] [facility] 00:[facility] Body Weight 2021-12-08 3632 [oz_av] [place] [facility] 00:[facility] BP Diastolic 2021-07-10 74 mm[Hg] [place] [facility] 00:[facility] Height 2021-07-10 63.5 [in_i] [place] [facility] 00:[facility] BMI (Body Mass 2021-07-10 39.1 kg/m2 [place] [facility] Index) 00:00:00 [facility] BP Systolic 2021-07-10 146 mm[Hg] [place] [facility] 00:[facility] Body Weight 2021-07-10 3584 [oz_av] [place] [facility] 00:[facility] BP Diastolic 2021-04-10 66 mm[Hg] [place] [facility] 00:[facility] Height 2021-04-10 63.5 [in_i] [place] [facility] 00:[facility] BMI (Body Mass 2021-04-10 38.4 kg/m2 [place] [facility] Index) 00:00:00 [facility] BP Systolic 2021-04-10 110 mm[Hg] [place] [facility] 00:[facility] Body Weight 2021-04-10 3520 [oz_av] [place] [facility] 00:[facility] Systolic blood 2021-02-28 124 mm[Hg] Bp machine [facility] pressure 14:00:00 error of Medicine Diastolic blood 2021-02-28 84 mm[Hg] Bp machine [facility] pressure 14:00:00 error of Medicine Heart rate 2021-02-28 83 /min [facility] 14:00:00 of Medicine Body height 2021-02-28 161.3 cm [facility] 14:00:00 of Medicine Body weight 2021-02-28 104.327 kg [facility] 14:00:00 of Medicine BMI 2021-02-28 40.10 kg/m2 [facility] 14:00:00 of Medicine Systolic blood 2021-02-28 124 mm[Hg] Bp machine [facility] pressure 14:00:00 error of Medicine Diastolic blood 2021-02-28 84 mm[Hg] Bp machine [facility] pressure 14:00:00 error of Medicine Heart rate 2021-02-28 83 /min [facility] 14:00:00 of Medicine Body height 2021-02-28 161.3 cm [facility] 14:00:00 of Medicine Body weight 2021-02-28 104.327 kg [facility] 14:00:00 of Medicine BMI 2021-02-28 40.10 kg/m2 [facility] 14:00:00 of Medicine BP Diastolic 2020-11-29 64 mm[Hg] [place] [facility] 00:[facility] Height 2020-11-29 63.5 [in_i] [place] [facility] 00:[facility] BMI (Body Mass 2020-11-29 38.9 kg/m2 [place] [facility] Index) 00:00:00 [facility] BP Systolic 2020-11-29 124 mm[Hg] [place] [facility] 00:[facility] Body Weight 2020-11-29 3568 [oz_av] [place] [facility] 00:[facility] BP Diastolic 2020-11-15 60 mm[Hg] [place] [facility] 00:[facility] Height 2020-11-15 63.5 [in_i] [place] [facility] 00:[facility] BMI (Body Mass 2020-11-15 39.2 kg/m2 [place] [facility] Index) 00:00:00 [facility] BP Systolic 2020-11-15 106 mm[Hg] [place] [facility] 00:[facility] Body Weight 2020-11-15 3600 [oz_av] [place] [facility] 00:[facility] BP Diastolic 2020-10-17 78 mm[Hg] [place] [facility] 00:[facility] Height 2020-10-17 63.5 [in_i] [place] [facility] 00:[facility] BMI (Body Mass 2020-10-17 38.5 kg/m2 [place] [facility] Index) 00:00:00 [facility] BP Systolic 2020-10-17 124 mm[Hg] [place] [facility] 00:[facility] Body Weight 2020-10-17 3536 [oz_av] [place] [facility] 00:[facility] Systolic (mm Hg) 2022-02-13 [facility] rmann 16:29:00 Diastolic (mm Hg) 2022-02-13 [facility] ermann 16:29:00 Heart Rate 2022-02-13 [facility] n 16:29:00 Respitory Rate 2022-02-13 [facility] lana 16:29:00 Height 2022-02-13 160.02 [facility] 16[facility]00 Weight 2022-02-13 [facility] n 16:29:00 BMI Calculated 2022-02-13 [facility] lana 16:29:00 Systolic (mm Hg) 2022-01-01 [facility] rmann 14:57:00 Diastolic (mm Hg) 2022-01-01 [facility] ermann 14:57:00 Heart Rate 2022-01-01 Latasha Kaminskian n 14:57:00 Respitory Rate 2022-01-01 [facility] 14:57:00 Height 2022-01-01 160.02 cm Latasha Armstrong n 14:57:00 Weight 2022-01-01 [facility] n 14:57:00 BMI Calculated 2022-01-01 [facility] 14:57:00 Systolic (mm Hg) 2020-11-10 [facility] 20:00:00 Diastolic (mm Hg) 2020-11-10 [facility] ermann 20:00:00 Respitory Rate 2020-11-10 [facility] lana 20:00:00 Systolic (mm Hg) 2020-11-10 [facility] 19:00:00 Diastolic (mm Hg) 2020-11-10 [facility] 19:00:00 Respitory Rate 2020-11-10 [facility] 19:00:00 Systolic (mm Hg) 2020-11-10 [facility] rmann 18:00:00 Diastolic (mm Hg) 2020-11-10 [facility] ermann 18:00:00 Respitory Rate 2020-11-10 [facility] 18:00:00 Temperature Oral 2020-11-10 97.1 F [facility] rmann (F) 11:12:00 Temperature Oral 2020-11-10 97.1 F [facility] rmann (F) 05:17:00 Temperature Oral 2020-11-10 98.4 F [facility] rmann (F) 02:00:00 Systolic (mm Hg) 2020-11-07 [facility] 09:00:00 Diastolic (mm Hg) 2020-11-07 [facility] ermann 09:00:00 Systolic (mm Hg) 2020-11-07 [facility] 08:00:00 Diastolic (mm Hg) 2020-11-07 [facility] 08:00:00 Systolic (mm Hg) 2020-11-07 [facility] 06:00:00 Diastolic (mm Hg) 2020-11-07 [facility] ermann 06:00:00 Temperature Oral 2020-11-07 96.8 F [facility] rmann (F) 03:00:00 Respitory Rate 2020-11-07 [facility] lana 00:52:00 Respitory Rate 2020-11-06 [facility] lana 23:00:00 Respitory Rate 2020-11-06 [facility] l[facility] 22:00:00 Height 2020-11-06 160.02 cm [facility] 21:33:00 Weight 2020-11-06 [facility] 21:33:00 BMI Calculated 2020-11-06 [facility] lana 21:33:00 Systolic (mm Hg) 2019-12-22 [facility] 18:42:00 Diastolic (mm Hg) 2019-12-22 [facility] 18:42:00 Heart Rate 2019-12-22 Latasha Kaminskian n 18:42:00 Temperature Oral 2019-12-22 98.3 F Latasha Garcia rmann (F) 18:42:00 Height 2019-12-22 153.67 cm Latasha Kaminskian n 18:42:00 Weight 2019-12-22 Latasha Kaminskian n 18:42:00 BMI Calculated 2019-12-22 [facility] 18:42:00 Procedures Procedure Date / Time Performing Clinician Source Performed XR, shoulder, 2 or more 2022-06-07 00:00:00 [facility] US, breast, unilateral 2022-01-09 00:00:00 [facility] MAMMO, screening, digital, 2021-12-08 00:00:00 [facility] COMPREHENSIVE METABOLIC 2021-02-28 16:41:00 Genaro Gaytan [facility] PANEL Medicine BETA 2 MICROGLOBULIN SERUM 2021-02-28 16:41:00 Genaro Gaytan [facility] LACTATE DEHYDROGENASE 2021-02-28 16:41:00 Genaro Gaytan [facility] PROTEIN ELECTROPHORESIS 2021-02-28 16:41:00 Genaro Gaytan [facility] SERUM Medicine CBC WITH MAN DIFF & 2021-02-28 16:41:00 Genaro Gaytan [facility] ABSOLUTE WBC Medicine XR, thumb 2020-11-15 00:00:00 Medical Center Hospital Placement of 2014-09-23 06:00:00 [facility] stent<sup>1</sup> Repair of 2011-11-22 06:00:00 [facility] clavicle<sup>2</sup> Cholecystectomy 2009-05-24 05:00:00 [facility] Colonoscopy<sup>3</sup> 2009-05-24 05:00:00 Pako jennifer Mateus Fracture of 2008-03-23 05:00:00 Latasha Sotelo garcia ankle<sup>4</sup> Total hysterectomy 1999-10-24 06:00:00 Latasha Ignacio section 1979-04-01 05:00:00 Latasha salas Procedure on Clavicle [facility] Cholecystectomy [facility] Procedure on Ankle [facility] Total Hysterectomy [facility] Carpal Tunnel Surgery [facility] Delivery [facility] Placement of Stent in [facility] Pulmonary Artery [facility] s Ankle joint [facility] operations<sup>5</sup> Plan of Care Planned Activity Planned Date Details Comments Source Future Scheduled 2022-05-[address] [facility] Test 00:00:00 (#1) [code = Medical Center INFLUENZA VACCINE (#1)] Diagnostic Test 2022-04-23 rapid SARS CoV 2 Ag, General acute hospital Pending 00:00:00 QL IA, respiratory Hospital Clinics specimen [code = rapid SARS CoV 2 Ag, QL IA, respiratory specimen] Future Scheduled 2021-09-[address] [facility] Test 00:00:00 (12+) [code = Medical Center DEPRESSION SCREENING (12+)] Future Scheduled 2021-09-23 FALLS RISK SCREENING [facility] Test 00:00:00 [code = FALLS RISK Medical C enter SCREENING] Future Scheduled 2021-03-03 Screening for [facility] Test 08:20:00 malignant neoplasm of Medici ne of colon (procedure) [code = 704823117] Future Scheduled 2021-03-03 Screening for [facility] Test 08:20:00 malignant neoplasm of Medici ne of breast (procedure) [code = 855841775] Future Scheduled 2021-03-03 COVID-19 Vaccine (1) [employer] [facility] [employer] Test 08:20:00 [code = COVID-19 of Medicine Vaccine (1)] Future Scheduled 2021-03-03 TETANUS SHOT (ADULT) [employer] Test 08:20:00 [code = TETANUS SHOT of Medi cine (ADULT)] Future Scheduled 2021-03-03 BMI FOLLOW UP PLAN [facility] Test 08:20:00 [code = BMI FOLLOW of Medici ne UP PLAN] Future Scheduled 2021-03-03 Hepatitis C [facility] Test 08:20:00 screening of Medicine (procedure) [code = 413062594] Future Scheduled 2021-03-03 ZOSTER VACCINE (1 of [facility] Test 08:20:00 2) [code = ZOSTER of Medicin e VACCINE (1 of 2)] Future Scheduled 2021-03-03 FALL SCREEN [code = [facility] Test 08:20:00 FALL SCREEN] of Medicine Future Scheduled 2021-03-03 Screening for [facility] Test 08:20:00 osteoporosis of Medicine (procedure) [code = 041530606] Future Scheduled 2021-03-03 PNEUMOVAX >=65 [facility] Test 08:20:00 (PPSV23) [code = of Medicine PNEUMOVAX >=65 (PPSV23)] Future Scheduled 2021-03-03 MEDICARE IPPE [facility] Test 08:20:00 (WELCOME TO of Medicine MEDICARE) [code = MEDICARE IPPE (WELCOME TO MEDICARE)] Future Scheduled 2021-03-03 FLU VACCINE > 6 [facility] Test 08:20:00 MONTHS [code = FLU of Medici ne VACCINE > 6 MONTHS] Future Scheduled 2021-02-28 CT CHEST ABDOMEN 1 Occurrences [facility] Test 11:00:21 PELVIS W CONTRAST starting of Medicin e [code = 15815-7] 02/28/2021 until 02/28/2022 Future Scheduled 2020-10-[address] [facility] Test 00:00:00 Counseling and Medical Cente r Screening (12+) [code = Tobacco Cessation Counseling and Screening (12+)] Future Scheduled 2020-09-02 PNEUMOCOCCAL 65+ YRS [facility] Test 00:00:00 (1 - PCV) [code = Medical Ce nter PNEUMOCOCCAL 65+ YRS (1 - PCV)] Future Scheduled 2009-02-[address] [facility] [facility] Test 00:00:00 WELLNESS (YEAR 2 or Medical Center FIRST YEAR if no IPPE) [code = MEDICARE ANNUAL WELLNESS (YEAR 2 or FIRST YEAR if no IPPE)] Future Scheduled 2004 SHINGLES VACCINES ([address] [facility] Test 00:00:00 of 2) [code = Medical Center SHINGLES VACCINES (1 of 2)] Future Scheduled 1973 DTAP/TDAP/TD [facility] Test 00:[facility] VACCINES (1 - Tdap) [facility] [code = DTAP/TDAP/TD VACCINES (1 - Tdap)] Future Scheduled [address] [facility] Test 00:00:00 SCREENING [code = [facility] nter HEPATITIS C SCREENING] Future Scheduled 1955-03-26 COVID-[address] [facility] Test 00:00:00 (#1) [code = [facility] Center COVID-19 VACCINE (#1)] Future Scheduled [address] [facility] Test 00:00:00 malignant neoplasm Medical C enter of breast (procedure) [code = 264462123] Future Scheduled [address] [facility] Test 00:00:00 (combo) [code = CT Medical C enter Colonography (combo)] Future Scheduled [address] [facility] [facility] Test 00:00:00 malignant neoplasm Medical C enter of colon (procedure) [code = 905500169] Future Scheduled [address] [facility] [facility] Test 00:00:00 malignant neoplasm Medical C enter of colon (procedure) [code = 074586528] Future Scheduled 1954 DXA SCAN [code = DXA [facility] Test 00:00:00 SCAN] [facility] Future Scheduled [address] [facility] Test 00:00:00 malignant neoplasm Medical C enter of colon (procedure) [code = 270722593] Future Scheduled [address] [facility] Test 00:00:00 malignant neoplasm Medical C enter of colon (procedure) [code = 568699035] Future Scheduled 1954 Sigmoidoscopy [code [facility] Test 00:00:00 = Sigmoidoscopy] Medical Kendra ter Encounters Start End Encounter Admission Attending Care Care Encounter Source Date/Time Date/Time Type Type Clinicians Facility Department ID 2022-08-21 2022-08-21 Outpatient FRANKI DOAN [id number] [facility] 13:30:00 13:30:00 Kassandra Ignacio 2022-06-25 2022-06-25 Outpatient ERICKSON_R [facility] [id number] [place] 00:00:00 00:00:00 1003 [facility] 2022-06-14 2022-06-14 Outpatient ERICKSON_R [facility] [address] [place] 00:00:00 00:00:00 0922 Commun i ty Hosp[facility] l Clinics 2022-06-14 2022-06-14 Josué [facility] [place] 00:00:00 00:00:00 [facility] DO: [address] [facility] [place], [place] CL[place]IC, [address] HUMBERTO , Ph. [phone] 2022-06-12 2022-06-12 Outpatient ERICKSON_R [facility] [address] [place] 00:00:00 00:00:00 0920 [facility] i [facility] 2022-06-07 2022-06-07 Outpatient ERICKSON_R [facility] [address] [place] 00:00:00 00:00:00 0915 [facility] 2022-06-07 2022-06-07 Outpatient Cerrato [facility] [id number] 00:00:00 00:00:00 Josué [id number] Olalla [id number] 2022-06-07 2022-06-07 Josué [facility] [place] 00:00:00 00:00:00 [facility] DO: [address] [facility] [place], [place] CLINIC, [address] HUMBERTO , Ph. [phone] 2022-05-31 2022-05-31 Outpatient ERICKSON_R [facility] [address] [place] 00:00:00 00:00:00 0908 [facility] i ty [facility] 2022-04-23 2022-04-23 Outpatient AMBREEN_PARMJIT HIAJAY [facility] [id number] [place] 00:00:00 00:00:00 HANA 0801 da [facility] Outre h Program 2022-04-23 2022-04-23 Outpatient ERICKSON_R [facility] [address] [place] 00:00:00 00:00:00 0801 Commun i ty [facility] Clinics 2022-04-23 2022-04-23 Josué [facility] [place] 00:00:00 00:00:00 [facility] DO: [address] [facility] [address] [place], [address] HUMBERTO , Ph. 2022-04-23 2022-04-23 Outpatient Cerrato, [facility] [id number] 00:00:00 00:00:00 Josué [id number] Ari [id number] 2022-04-19 2022-04-19 Outpatient Young_J MMG MMG [id number] [place] 00:00:00 00:00:00 728 [facility] 2022-04-13 2022-04-13 Outpatient ERICKSON_R [facility] [address] [place] 04:59:00 04:59:00 0722 Commun i ty [facility]osp[facility] Clinics 2022-03-09 2022-03-09 Outpatient [facility]ICKSON_R [facility] [address] [place] 05:56:00 05:56:00 0617 Commun i ty Hospita [facility] Clinics 2022-03-06 2022-03-06 Outpatient ERICKSON_R [facility] [address] [place] 10:59:00 10:59:00 0614 Commun i ty Hospita l Clinics 2022-03-06 2022-03-06 Josué [facility] [place] [id number] [place] 00:00:00 00:00:00 [facility] DO: [address] a [facility] l [address], HOSPITAL Clinic s [place], [place] CL[place]IC, [address] HUMBERTO , Ph. [phone] 2022-03-06 2022-03-06 Outpatient ANAI Cerrato [facility] [id number] 00:00:00 00:00:00 Josué [id number] Ari [id number] 2022-02-15 2022-02-15 Outpatient Young_J MMG MMG [id number] [place] 04:50:00 04:50:00 526 [facility] 2022-02-13 2022-02-14 Outpatient nullFlavo MNA [id number] [facility] 16:30:00 04:59:59 r Neurology 02 l Meagan Ignacio 2022-02-13 2022-02-13 Outpatient Gilbert MISCHER MISCHER [id number] 11:30:00 23:59:59 Travis 02 Ziggy 2022-02-13 2022-02-13 Outpatient MHIE MHIE [id number] [facility] 11:30:00 11:30:00 02 l [place] 2022-02-07 2022-02-07 Outpatient C_Hall MMG MMG [id number] [place] 03:32:00 03:32:00 518 [facility] 2022-02-05 2022-02-05 Outpatient C_Hall MMG MMG [id number] [place] 09:50:00 09:50:00 516 [facility] 2022-02-02 2022-02-02 Outpatient ERICKSON_R [facility] [address] [place] 06:43:00 06:43:00 0513 Commun i ty Hosp[facility] Clinics 2022-01-18 2022-01-18 Outpatient ERCATHYON_R [facility] [address] [place] 03:18:00 03:18:00 0428 Commun i ty Hospita l Clinics 2022-01-18 2022-01-18 Josué [facility] [place] 00:00:00 00:00:00 [facility] [address] a [facility] G, [place]PITAL [place], [address] HUMBERTO , Ph. 2022-01-18 2022-01-18 Outpatient ANAI Cerrato [facility] [id number] 00:00:00 00:00:00 Josué [id number] Ari [id number] 2022-01-03 2022-01-03 Ambulatory nullFlavo MNA [id number] [facility] 20:45:00 20:45:00 Pre-Reg r Neurology 00 l Meagan Ignacio 2022-01-03 2022-01-03 Outpatient MHIE MHIE [id number] [facility] 15:45:00 15:45:00 00 nithin Ignacio 2022-01-03 2022-01-03 Outpatient MARY HuntMISCHER MHMISCHER [id number] 15:45:00 15:45:00 Travis 00 Ziggy 2022-01-01 2022-01-02 Outpatient nullFlavo MNA [id number] [facility] 15:30:00 04:59:59 r Neurology 01 l Meagan Ignacio 2022-01-01 2022-01-01 Outpatient MAYKEL HuntSCHER MHMISCHER [id number] 10:30:00 23:59:59 Travis 01 Ziggy 2022-01-01 2022-01-01 Outpatient MHIE MHIE [id number] [facility] 10:30:00 10:30:00 01 nithin Ignacio 2021-12-29 2021-12-29 Outpatient ERCATHYON_R [facility] [id number] 06:58:00 06:58:00 0408 Commun i ty Hospita [facility] Clinics 2021-12-08 2021-12-08 Outpatient LORENEON_R [facility] [address] [place] 11:38:00 11:38:00 0318 Commun i ty Hosp[facility] Clinics 2021-12-08 2021-12-08 Outpatient [facility] [id number] 00:00:00 00:00:00 Josué [id number] Ari [id number] 2021-12-08 2021-12-08 Josué [facility] [place] [address] [place] 00:00:00 00:00:00 [facility] DO: [address] Hospit a [facility], HOSPITAL Clinic [place], [place], [address] HUMBERTO , Ph. [phone] 2021-09-14 2021-09-14 Outpatient ERICKSON_R [facility] [address] [place] 05:15:00 05:15:00 1223 Commun i ty Hosp[facility] Clinics 2021-09-11 2021-09-11 Outpatient ERICKSON_R [facility] [address] [place] 02:20:00 02:20:00 1220 Commun i ty [facility]osp[facility] Clinics 2021-07-10 2021-07-10 Outpatient [facility]ICKSON_R [facility] [address] [place] 11:36:00 11:36:00 1018 Commun i ty Hospita l Clinics 2021-07-10 2021-07-10 Josué [facility] [place] [address] [place] 00:00:00 00:00:00 [facility] DO: [address] a [facility], [facility]PITAL [facility] [place], [address] HUMBERTO , Ph. [phone] 2021-07-10 2021-07-10 Outpatient Humberto [facility] [id number] 00:00:00 00:00:00 Josué [id number] Ari [id number] 2021-07-10 2021-07-10 Outpatient Cerrato, [facility] [id number] 00:00:00 00:00:00 Josué [id number] Ari [id number] 2021-07-07 Outpatient [facility] [facility] 1004 [address] 12:59:00 12:59:00 1015 [facility] 2021-04-10 2021-04-10 Outpatient ERICKSON_R [facility] 1004 [place] 10:48:00 10:48:00 0719 [facility] 2021-04-10 2021-04-10 Josué [facility] [place] 00:00:00 00:00:00 [facility] - DO: [address] [facility] [address] Clinic [place], [place] CL[place], [address] HUMBERTO , Ph. 2021-04-10 2021-04-10 Outpatient Humberto [facility] [address] [id number] 00:00:00 00:00:00 Josué [id number] Ari [id number] 2021-03-25 2021-03-25 Outpatient [place] [address] [place] 02:15:00 02:15:00 0703 [facility] 2021-02-28 2021-02-28 Office TEJ Gaytan [id number] 08:54:07 13:56:57 Visit Genaro AMBULATOR [id number] [place] [id number] 2021-02-28 2021-02-28 Office TEJ Gaytan [id number] [place] [address] 08:54:07 13:56:57 Visit Genaro AMBULATOR [id number] [place] [id number] of [phone] [facility] 800 e 2021-02-19 2021-02-19 Outpatient [place]SON_R [place] [id number] [place] 01:01:00 01:01:00 0530 [facility] 2021-01-15 2021-01-15 Outpatient [place] [id number] [place] 01:06:00 01:06:00 0425 [facility] 2020-12-04 2020-12-04 Outpatient [facility]SON[facility] 1004 [place] 01:03:00 01:03:00 0314 [facility] 2020-11-29 2020-11-29 Outpatient ERICKSON_R [facility] 1004 [place] 12:00:00 12:00:00 0309 [facility] 2020-11-29 2020-11-29 Josué [facility] [place] 00:00:00 00:00:00 [facility] DO: [address] Hospit a [facility] G, HOSPITAL Clinic [facility], [facility], [address] HUMBERTO , Ph. 2020-11-29 2020-11-29 Outpatient Humberto, [facility] [id number] 00:00:00 00:00:00 Josué [id number] Ari [id number] 2020-11-18 2020-11-18 Outpatient ERICKSON_R [facility] 1004 [place] 10:58:00 10:58:00 0226 [facility] 2020-11-15 2020-11-15 Outpatient [facility]ICKSON_R [facility] 1004 [place] 02:46:00 02:46:00 0223 [facility] 2020-11-15 2020-11-15 Outpatient Cerrato, [facility] [id number] 00:00:00 00:00:00 Josué [id number] Ari [id number] 2020-11-15 2020-11-15 Josué [facility] [place] 00:00:00 00:00:00 [facility] ty DO: [address] Hospit a [facility] G, HOSPITAL [place], [place] CLINIC, [address] HUMBERTO , Ph. [phone] [facility] 2020-11-08 2020-11-10 [facility] [id number] [facility] 15:12:00 21:10:00 n r [place] 45 l [facility] 2020-11-08 2020-11-10 Outpatient U MONTSERRAT, [facility] CAR 1045 [facility] 09:12:00 15:10:00 UDAY 2020-11-08 2020-11-10 Outpatient Montserrat, [facility] [id number] 09:12:00 15:10:00 [facility] 45 2020-11-06 2020-11-06 Outpatient Montserrat, [facility] [id number] 15:12:00 15:12:00 [facility] 45 2020-10-20 2020-10-20 Outpatient ERICKSON_R [facility] 1004 [place] 10:31:00 10:31:00 0128 [facility] 2020-10-19 2020-10-19 Outpatient ERICKSON_R [facility] 1004 [place] 10:29:00 10:29:00 0127 [facility] 2020-10-17 2020-10-17 Outpatient ERICKSON_R [facility] 1004 [place] 11:38:00 11:38:00 0125 [facility] 2020-10-17 2020-10-17 Outpatient Cerrato, [facility] [id number] 00:00:00 00:00:00 Josué [id number] Ari [id number] 2020-10-17 2020-10-17 Josué [facility] [place] 00:00:00 00:00:00 Ari [facility] DO: [address] Hospit a Jim [facility] [address], HOSPITAL [place], [place] CLINIC, [address] HUMBERTO , Ph. [phone] 2020-10-10 2020-10-10 Outpatient HUMBERTO_Maikel [facility] 1004 [place] 11:13:00 11:13:00 0118 Commun i ty Hospita l [facility] 2020-03-22 2020-03-22 [place] [id number] [place] 19:30:00 19:30:00 Pre-Reg r Internal 01 [facility] 2020-03-22 2020-03-22 Outpatient [facility] [id number] [place] 14:30:00 14:30:00 01 [facility] 2020-03-22 2020-03-22 [facility] [id number] 14:30:00 14:30:00 , [place] 2019-12-23 2019-12-24 Between nullFlavo MG [id number] [place] 11:57:50 11:57:50 Visit r Internal 01 [facility] 2019-12-23 2019-12-24 Outpatient MG MG [id number] 06:57:50 06:57:50 01 2019-12-22 2019-12-23 [place] [id number] [place] 19:00:00 04:59:59 r Internal 00 [facility] 2019-12-22 2019-12-22 [facility] [id number] 14:00:00 23:59:59 , Danilo [place] 2019-12-22 2019-12-22 Outpatient [facility] [id number] [place] 14:00:00 14:00:00 00 nithin [place] Results Test Description Test Time Test Comments Results Result Comments Source PROTEIN ELECTROPHORESIS SERUM 2021-03-01 22:37:01 Test Item Value Reference Range Interpretation Comme nts ALBUMIN (test code = 1751-7) See_Comment [Automated message] The system which generated this result transmitted ref erence range: 2.8 - 4.9 G/DL. The reference range was not used to interpret this result as angeline l/abnormal. % ALBUMIN (test code = 41020-4) 54 % GLOBULINS, SERUM, TOTAL (test See_Comment [Automated message] The system code = 36321-0) which genera lorena this result transmitted ref erence range: 2.0 - 3.8 G/DL. The reference range was not used to interpret this result as angeline l/abnormal. A/G RATIO (test code = 88779-1) See_Comment [Automated message] The system which generated this result transmitted ref erence range: 1.2 - 1.9 RATIO. Th e reference range was not used to interpret this result as angeline l/abnormal. ALPHA 1 (test code = 2865-4) See_Comment [Automated message] The system which generated this result transmitted ref erence range: 0.2 - 0.5 G/DL. The reference range was not used to interpret this result as angeline l/abnormal. ALPHA 1 % (test code = 63987-9) 3 % ALPHA 2 (test code = 2868-8) See_Comment [Automated message] The system which generated this result transmitted ref erence range: 0.5 - 1.0 G/DL. The reference range was not used to interpret this result as angeline l/abnormal. ALPHA 2 % (test code = 64424-5) 11 % BETA GLOBULIN (test code = See_Comment [Automated message] The system 2871-2) which generated this result transmitted ref erence range: 0.5 - 1.2 G/DL. The reference range was not used to interpret this result as angeline l/abnormal. BETA % (test code = 53915-6) 13 % GAMMA GLOBULIN (test code = See_Comment [Automated message] The system 2874-6) which generated this result transmitted ref erence range: 0.7 - 1.5 G/DL. The reference range was not used to interpret this result as angeline l/abnormal. GAMMA GLOBULIN % (test code = 19 % 77429-4) PROTEIN TOTAL (test code = See_Comment [Automated message] The system 2885-2) which generated this result transmitted ref erence range: 6.1 - 8.3 G/DL. The reference range was not used to interpret this result as angeline l/abnormal. INTERPRETATION SPE (test code = (NOTE) NORMAL SERUM PROTEIN 19549-8) ELECTROPHORESIS STUDY. NO MONOCLONAL PROT EIN SEEN. ELIZABETH CANADA MD Unl ess Otherwise Indicated, All Testing Performed At: [facility], [address] [place], [place] [address] Statistics Tutor: Josafat Valderrama M.D. CLIA Number [id number] [place] Acc[place]. [id number] [facility] WITH MAN DIFF & ABSOLUTE [id number] 10:29:34 Test Item Value Reference Range Interpretation Comments WHITE BLOOD CELL COUNT See_Comment NOTE : EFFECTIVE (test code = 64858-8) 2020, THIS ORDER CODE IS REDUNDA NT AND WILLBE DISCONTI NUED DUE TO THE REPORTIN G OF ABSOLUTE WBC DIFFERENTIALS(C ELLS/UL) WITH ALL CBC OR DRAKE CODES. CONSIDER USING ORDER CODE 1007 ,CBC WITH MANUAL DIFFERENTIAL. [Automated mess age] The system which ge nerated this result tra nsmitted reference range : 3.5 - 11.0 K/UL. The reference range was not used to interpr et this result as normal/abnormal . RED BLOOD CELL COUNT See_Comment [Autom ated message] (test code = 81631-0) The sy stem which generated this result transmitted ref erence range: 3.80 - 5 .40 M/UL. The refer ence range was not u sed to interpret this result as normal/abnor mal. HEMOGLOBIN (test code = See_Comment [Au tomated message] 718-7) The system whic h generated this result transmitted ref erence range: 11.5 - 1 5.5 G/DL. The refer ence range was not u sed to interpret this result as normal/abnor mal. HEMATOCRIT (test code = 43.8 % 34.0-45.0 28120-5) MEAN CORPUSCULAR VOLUME 89.9 fL 80.0-99.0 (test code = 18272-8) MEAN CORPUSCULAR 29.2 PG 25.0-33.0 HEMOGLOBIN (test code = 54080-5) MEAN CORPUSCULAR See_Comment [Automated message] HEMOGLOBIN CONC (test The sy stem which code = 80140-5) generated th is result transmitted ref erence range: 31 - 36 G/DL. The reference r mariana was not used to int erpret this result as normal/abnormal . RED CELL DISTRIBUTION 12.4 % 11.5-15.0 WIDTH (test code = 13728-3) NEUTROPHILS % (test 47.0 % 40.0-75.0 code = 24842-6) LYMPHOCYTES % (test 41.7 % 20.0-45.0 code = 02185-9) MONOCYTES % (test code 7.0 % 4.0-12.0 = 02060-9) EOSINOPHILS % (test 4.3 % 0.0-7.0 code = 01067-0) BASOPHILS % (test code 0.0 % 0.0-2.0 = 57730-4) PLATELET COUNT (test See_Comment [Autom ated message] code = 58837-8) The system w hich generated this result transmitted ref erence range: 130 - 40 0 K/UL. The reference r mariana was not used to int erpret this result as normal/abnormal . NEUTROPHILS ABSOLUTE See_Comment [Autom ated message] COUNT (test code = The syste m which 95489-0) generated this result transmitted ref erence range: 1.50 - 7 .50 K/UL. The refer ence range was not u sed to interpret this result as normal/abnor mal. LYMPHOCYTES ABSOLUTE See_Comment [Autom ated message] COUNT (test code = The syste m which 98940-4) generated this result transmitted ref erence range: 1.00 - 4 .00 K/UL. The refer ence range was not u sed to interpret this result as normal/abnor mal. MONOCYTES ABSOLUTE See_Comment [Automat ed message] COUNT (test code = The syste m which 68698-1) generated this result transmitted ref erence range: 0.20 - 1 .00 K/UL. The refer ence range was not u sed to interpret this result as normal/abnor mal. BASOPHILS ABSOLUTE See_Comment [Automat ed message] COUNT (test code = The syste m which 23475-5) generated this result transmitted ref erence range: 0.00 - 0 .20 K/UL. The refer ence range was not u sed to interpret this result as normal/abnor mal. COMMENTS (test code = (NOTE) NO SP ECIFIC RBC 92562-9) ABNORMALITIES IDENTIFIED PLAT ELETS APPEAR NORMAL U nless Otherwise Indic ated, All Testing Per formed At: [facility], [address] [place] [address] Laboratory Dire ctor: Josafat vasquez M.D. CLIA Number [id number] [facility] [place] [id number] [facility] [id number] 08:03:33 Test Item Value Reference Range Interpretation Comments GLUCOSE (test code = See_Comment H [Autom ated message] 2345-7) The system [employer] generated this result transmitted ref erence range: 70 - 99 MG/DL. The reference r mariana was not used to interpret this result as normal/abnor mal. BLOOD UREA NITROGEN See_Comment [Automa lorena message] (test code = 3091-6) The s tem which generated this result transmitted ref erence range: 8 - 23 M G/DL. The reference r mariana was not used to interpret this result as normal/abnor mal. CREATININE (test code = See_Comment [Au tomated message] 2160-0) The system [employer] generated this result transmitted ref erence range: 0.60 - 1 .30 MG/DL. The refe rence range was not u sed to interpret this result as normal/abnor mal. EGFR AA (test code = See_Comment [Autom ated message] 55491-6) The system [employer] generated this result transmitted ref erence range: >60 ML/MIN/1.73. Th e reference range was not used to int erpret this result as normal/abnormal . EGFR (test code = See_Comment [Automate d message] 94310-0) The system [employer] generated this result transmitted ref erence range: >60 ML/MIN/1.73. Th e reference range was not used to int erpret this result as normal/abnormal . BUN/CREAT RATIO (test See_Comment [Auto mated message] code = 3097-3) The system [employer] generated this result transmitted ref erence range: 6 - 28 R ATIO. The reference r mariana was not used to interpret this result as normal/abnor mal. SODIUM (test code = See_Comment [Automa lorena message] 2951-2) The system [employer] generated this result transmitted ref erence range: 133 - 14 6 MEQ/L. The refe rence range was not u sed to interpret this result as normal/abnor mal. POTASSIUM (test code = See_Comment [Aut omated message] 2823-3) The system [facility] generated this result transmitted ref erence range: 3.5 - 5. 4 MEQ/L. The refe rence range was not u sed to interpret this result as normal/abnor mal. CHLORIDE (test code = See_Comment [Auto mated message] 4345-0) The system [facility] generated this result transmitted ref erence range: 95 - 107 MEQ/L. The reference r mariana was not used to interpret this result as normal/abnor mal. CO2 (test code = See_Comment [Automated message] 1963-8) The system [facility] generated this result transmitted ref erence range: 19 - 31 MEQ/L. The reference r mariana was not used to interpret this result as normal/abnor mal. CALCIUM (test code = See_Comment [Autom ated message] 58924-1) The system [facility] generated this result transmitted ref erence range: 8.5 - 10 .5 MG/DL. The refe rence range was not u sed to interpret this result as normal/abnor mal. PROTEIN TOTAL (test See_Comment [Automa lorena message] code = 2885-2) The system [facility] generated this result transmitted ref erence range: 6.1 - 8. 3 G/DL. The reference r mariana was not used to interpret this result as normal/abnor mal. ALBUMIN (test code = See_Comment [Autom ated message] 85377-6) The system [facility] generated this result transmitted ref erence range: 3.5 - 5. 2 G/DL. The reference r mariana was not used to interpret this result as normal/abnor mal. GLOBULINS, SERUM, TOTAL See_Comment [Au tomated message] (test code = 02155-4) The sy stem which generated this result transmitted ref erence range: 1.9 - 3. 7 G/DL. The reference r mariana was not used to interpret this result as normal/abnor mal. A/G RATIO (test code = See_Comment [Aut omated message] 3679-0) The system [facility] generated this result transmitted ref erence range: 1.0 - 2. 6 RATIO. The refe rence range was not u sed to interpret this result as normal/abnor mal. BILIRUBIN TOTAL (test See_Comment [Auto mated message] code = 1974-2) The system wh ich generated this result transmitted ref erence range: <=1.2 MG /DL. The reference r mariana was not used to interpret this result as normal/abnor mal. ALKALINE PHOSPHATASE 110 U/L 40-142 (test code = 6768-6) AST (SGOT) (test code = 16 U/L 9-40 1920-8) ALT (SGPT) (test code = 18 U/L 5-40 Unl ess Otherwise 1744-2) Indicated, All Testing Performed At: [facility], [address] [place] [id number] Laborator y Director: Jing RendonIA Number [id number] [place]. [id number] Lab Interpretation Abnormal (test code = 87599-5) [facility]CT[facility] [id number] 08:03:16 Test Item Value Reference Range Interpretation Comments LACTATE DEHYDROGENASE 148 U/L 135-214 Unles s Otherwise (test code = 59109-8) Indica lorena, All Testing Performed At: [facility], [address] [place] [address] Director: Jing RendonIA Number [id number] Cap Accreditation [place] o. [id number] [facility]eca[facility]ET[facility] 2 MICROGLOBULIN [id number] 08:03:16 Test Item Value Reference Range Interpretation Comments BETA-2 MICROGLOBULIN 1.9 MG/L See_Comment NOTE: REFERENCE RANGE IS (test code = 1952-1) ASSOCIA LORENA WITH METHOD CHANGE TO EVA NORTH IKER-QUANT IMMUNOTURBIDIME TRIC ASSAY. Unless O therwise Indicated, All Testing Performed At: [facility], [address] [place], [place] [address] Laborator y Director: Josafat Valderrama M.D. CLIA Number [id number] [place] Accreditation [place]. [id number] [Autom ated message] The sy stem which generated this result transmitted ref erence range: <=3.0. T he reference range was not used to interpr et this result as normal/abnormal . [facility]ecaTl[id number] 06:05:00 Test Item Value Reference Range Interpretation Comments Eosinophils # (test code 0.4 See_Comment [A utomated message] The = Eosinophils #) system whic h generated this result tra nsmitted reference range : <=0.5. The reference r mariana was not used to int erpret this result as normal/abnormal . [facility]VE8607-21-54 06:05:00 Test Item Value Reference Range Interpretation Comments Basophils # (test code 0.1 See_Comment [Aut omated message] The = Basophils #) system which generated this result tra nsmitted reference range : <=0.2. The reference r mariana was not used to int erpret this result as normal/abnormal . [facility] Center[facility]tvmhgdPUZMNQTTGE4088-88-98 06:05:00 Test Item Value Reference Range Interpretation Comments PT (test code = PT) 12.2 s 12.0-14.7 [place] 789951-02-18 06:05:00 Test Item Value Reference Range Interpretation Comments INR (test code = INR) 0.91 1 0.85-1.17 [place] 789951-02-18 06:05:00 Test Item Value Reference Range Interpretation Comments PTT (test code = PTT) 56.8 s 22.9-35.8 [place] 789951-02-18 06:05:00 Test Item Value Reference Range Interpretation Comments WBC (test code = WBC) 9.1 3.7-10.4 [facility]uhzkptEMUQQALYME6815-17-13 06:05:00 Test Item Value Reference Range Interpretation Comments RBC (test code = RBC) 3.90 4.20-5.40 [place] 789951-02-18 06:05:00 Test Item Value Reference Range Interpretation Comments Hgb (test code = Hgb) 11.8 12.0-16.0 [place] 789951-02-18 06:05:00 Test Item Value Reference Range Interpretation Comments Hct (test code = Hct) 35.4 36.0-48.0 [place] 789951-02-18 06:05:00 Test Item Value Reference Range Interpretation Comments MCV (test code = MCV) 90.8 80.0-98.0 [place] 789951-02-18 06:05:00 Test Item Value Reference Range Interpretation Comments MCH (test code = MCH) 30.3 pg 27.0-31.0 [facility] Center[facility]lhjnnlFKCMLJKZSV1929-85-93 06:05:00 Test Item Value Reference Range Interpretation Comments MCHC (test code = MCHC) 33.4 32.0-36.0 [facility] CenterLtufsfwUURWEUOIVL3189-38-26 06:05:00 Test Item Value Reference Range Interpretation Comments RDW (test code = RDW) 13.7 11.5-14.5 [facility] CenterBbcxbzkUTMUTKCQRC9705-35-64 06:05:00 Test Item Value Reference Range Interpretation Comments Platelet (test code = Platelet) 276 133-450 [facility] CenterElyncvyXEHRECXMEL1274-13-85 06:05:00 Test Item Value Reference Range Interpretation Comments MPV (test code = MPV) 8.7 7.4-10.4 [facility]4310[facility]16-26 06:05:00 Test Item Value Reference Range Interpretation Comments Ca Ion WB (test code = Ca Ion WB) 1.13 1.05-1.25 [facility]2021-02-18 06:05:00 Test Item Value Reference Range Interpretation Comments Ca Norm WB (test code = Ca Norm WB) 1.11 1.05-1.25 [facility]2021-02-18 06:05:00 Test Item Value Reference Range Interpretation Comments Magnesium Lvl (test code = Magnesium 2.2 1.8-2.4 Lvl) [facility]2021-02-18 06:05:00 Test Item Value Reference Range Interpretation Comments Glucose Lvl (test code = Glucose Lvl) 153 70-99 [facility]2021-02-18 06:05:00 Test Item Value Reference Range Interpretation Comments BUN (test code = BUN) 10 7-22 [facility]2021-02-18 06:05:00 Test Item Value Reference Range Interpretation Comments Creatinine Lvl (test code = Creatinine 0.71 0.50-1.40 Lvl) [facility]2021-02-18 06:05:00 Test Item Value Reference Range Interpretation Comments Sodium Lvl (test code = Sodium Lvl) 141 135-145 [facility]2021-02-18 06:05:00 Test Item Value Reference Range Interpretation Comments Potassium Lvl (test code = Potassium 3.9 3.5-5.1 Lvl) [place] 841021-02-18 06:05:00 Test Item Value Reference Range Interpretation Comments Chloride Lvl (test code = Chloride Lvl) 108 95-109 [place] 841021-02-18 06:05:00 Test Item Value Reference Range Interpretation Comments CO2 (test code = CO2) 26 24-32 [place] 841021-02-18 06:05:00 Test Item Value Reference Range Interpretation Comments Calcium Lvl (test code = Calcium Lvl) 8.3 8.5-10.5 [place] 841021-02-18 06:05:00 Test Item Value Reference Range Interpretation Comments AGAP (test code = AGAP) 10.9 10.0-20.0 [place] 841021-02-18 06:05:00 Test Item Value Reference Range Interpretation Comments eGFR (test code = eGFR) 88 [place] 841021-02-18 06:05:00 Test Item Value Reference Range Interpretation Comments Phosphorus (test code = Phosphorus) 3.6 2.5-4.5 [place] 789951-02-18 06:05:00 Test Item Value Reference Range Interpretation Comments Segs (test code = Segs) 46.2 45.0-75.0 [place] 789951-02-18 06:05:00 Test Item Value Reference Range Interpretation Comments Lymphocytes (test code = Lymphocytes) 39.1 20.0-40.0 [place] 789951-02-18 06:05:00 Test Item Value Reference Range Interpretation Comments Monocytes (test code = Monocytes) 9.5 2.0-12.0 [place] 789951-02-18 06:05:00 Test Item Value Reference Range Interpretation Comments Eosinophils (test code = 4.5 See_Comment [A utomated message] The Eosinophils) system which ge nerated this result tra nsmitted reference range : <=4.0. The reference r mariana was not used to int erpret this result as normal/abnormal . [place] 789951-02-18 06:05:00 Test Item Value Reference Range Interpretation Comments Basophils (test code = 0.7 See_Comment [Aut omated message] The Basophils) system which ge nerated this result tra nsmitted reference range : <=1.0. The reference r mariana was not used to int erpret this result as normal/abnormal . [place] 789951-02-18 06:05:00 Test Item Value Reference Range Interpretation Comments Neutrophils # (test code = Neutrophils 4.2 1.5-8.1 #) [place] 789951-02-18 06:05:00 Test Item Value Reference Range Interpretation Comments Lymphocytes # (test code = Lymphocytes 3.6 1.0-5.5 #) [place] [address]-02-18 06:05:00 Test Item Value Reference Range Interpretation Comments Monocytes # (test code 0.9 See_Comment [Aut omated message] The = Monocytes #) system which generated this result tra nsmitted reference range : <=0.8. The reference r mariana was not used to int erpret this result as normal/abnormal . [place] 841021-02-17 06:29:00 Test Item Value Reference Range Interpretation Comments Phosphorus (test code = Phosphorus) 3.5 2.5-4.5 [place] 841021-02-17 06:29:00 Test Item Value Reference Range Interpretation Comments Glucose Lvl (test code = Glucose Lvl) 171 70-99 [place] 841021-02-17 06:29:00 Test Item Value Reference Range Interpretation Comments BUN (test code = BUN) 12 7-22 [place] 841021-02-17 06:29:00 Test Item Value Reference Range Interpretation Comments Creatinine Lvl (test code = Creatinine 0.73 0.50-1.40 Lvl) [place] 841021-02-17 06:29:00 Test Item Value Reference Range Interpretation Comments Sodium Lvl (test code = Sodium Lvl) 140 135-145 [place] 841021-02-17 06:29:00 Test Item Value Reference Range Interpretation Comments Potassium Lvl (test code = Potassium 4.1 3.5-5.1 Lvl) [place] 841021-02-17 06:29:00 Test Item Value Reference Range Interpretation Comments Chloride Lvl (test code = Chloride Lvl) 108 95-109 [place] 841021-02-17 06:29:00 Test Item Value Reference Range Interpretation Comments CO2 (test code = CO2) 26 24-32 [address]02-17 06:29:00 Test Item Value Reference Range Interpretation Comments Calcium Lvl (test code = Calcium Lvl) 8.6 8.5-10.5 [address]02-17 06:29:00 Test Item Value Reference Range Interpretation Comments AGAP (test code = AGAP) 10.1 10.0-20.0 [address]02-17 06:29:00 Test Item Value Reference Range Interpretation Comments eGFR (test code = eGFR) [address]02-17 06:29:00 Test Item Value Reference Range Interpretation Comments Magnesium Lvl (test code = Magnesium 2.3 1.8-2.4 Lvl) [address]02-17 06:29:00 Test Item Value Reference Range Interpretation Comments Segs (test code = Segs) 41.6 45.0-75.0 [address]02-17 06:29:00 Test Item Value Reference Range Interpretation Comments Lymphocytes (test code = Lymphocytes) 43.5 20.0-40.0 [address]02-17 06:29:00 Test Item Value Reference Range Interpretation Comments Monocytes (test code = Monocytes) 9.5 2.0-12.0 [place] [address]-02-17 06:29:00 Test Item Value Reference Range Interpretation Comments Eosinophils (test code = 4.3 See_Comment [A utomated message] The Eosinophils) system which ge nerated this result tra nsmitted reference range : <=4.0. The reference r mariana was not used to int erpret this result as normal/abnormal . [place] [address]-02-17 06:29:00 Test Item Value Reference Range Interpretation Comments Basophils (test code = 1.1 See_Comment [Aut omated message] The Basophils) system which ge nerated this result tra nsmitted reference range : <=1.0. The reference r mariana was not used to int erpret this result as normal/abnormal . [place] 789951-02-17 06:29:00 Test Item Value Reference Range Interpretation Comments Neutrophils # (test code = Neutrophils 3.6 1.5-8.1 #) [place] 789951-02-17 06:29:00 Test Item Value Reference Range Interpretation Comments Lymphocytes # (test code = Lymphocytes 3.7 1.0-5.5 #) [place] 789951-02-17 06:29:00 Test Item Value Reference Range Interpretation Comments Monocytes # (test code 0.8 See_Comment [Aut omated message] The = Monocytes #) system which generated this result tra nsmitted reference range : <=0.8. The reference r mariana was not used to int erpret this result as normal/abnormal . [place] 789951-02-17 06:29:00 Test Item Value Reference Range Interpretation Comments Eosinophils # (test code 0.4 See_Comment [A utomated message] The = Eosinophils #) system whic h generated this result tra nsmitted reference range : <=0.5. The reference r mariana was not used to int erpret this result as normal/abnormal . [place] 789951-02-17 06:29:00 Test Item Value Reference Range Interpretation Comments Basophils # (test code 0.1 See_Comment [Aut omated message] The = Basophils #) system which generated this result tra nsmitted reference range : <=0.2. The reference r mariana was not used to int erpret this result as normal/abnormal . [place] 789951-02-17 06:29:00 Test Item Value Reference Range Interpretation Comments PT (test code = PT) 12.4 s 12.0-14.7 [place] 789951-02-17 06:29:00 Test Item Value Reference Range Interpretation Comments INR (test code = INR) 0.93 1 0.85-1.17 [place] 789951-02-17 06:29:00 Test Item Value Reference Range Interpretation Comments PTT (test code = PTT) 58.7 s 22.9-35.8 [place] 789951-02-17 06:29:00 Test Item Value Reference Range Interpretation Comments WBC (test code = WBC) 8.5 3.7-10.4 [place] 789951-02-17 06:29:00 Test Item Value Reference Range Interpretation Comments RBC (test code = RBC) 3.98 4.20-5.40 [place] 789951-02-17 06:29:00 Test Item Value Reference Range Interpretation Comments Hgb (test code = Hgb) 11.9 12.0-16.0 [place] 789951-02-17 06:29:00 Test Item Value Reference Range Interpretation Comments Hct (test code = Hct) 36.3 36.0-48.0 [place] 789951-02-17 06:29:00 Test Item Value Reference Range Interpretation Comments MCV (test code = MCV) 91.2 80.0-98.0 [place] 789951-02-17 06:29:00 Test Item Value Reference Range Interpretation Comments MCH (test code = MCH) 30.0 pg 27.0-31.0 [place] 789951-02-17 06:29:00 Test Item Value Reference Range Interpretation Comments MCHC (test code = MCHC) 32.9 32.0-36.0 [place] 789951-02-17 06:29:00 Test Item Value Reference Range Interpretation Comments RDW (test code = RDW) 13.7 11.5-14.5 [place] 789951-02-17 06:29:00 Test Item Value Reference Range Interpretation Comments Platelet (test code = Platelet) 264 133-450 [facility]zeNRFUYWKBLW4226-74-58 06:29:00 Test Item Value Reference Range Interpretation Comments MPV (test code = MPV) 8.8 7.4-10.4 [facility] [id number] 06:29:00 Test Item Value Reference Range Interpretation Comments Ca Ion WB (test code = Ca Ion WB) 1.09 1.05-1.25 [id number] 06:29:00 Test Item Value Reference Range Interpretation Comments Ca Norm WB (test code = Ca Norm WB) 1.09 1.05-1.25 [place] 841021-02-16 06:07:00 Test Item Value Reference Range Interpretation Comments Glucose Lvl (test code = Glucose Lvl) 164 70-99 [facility]2021-02-16 06:07:00 Test Item Value Reference Range Interpretation Comments BUN (test code = BUN) 14 7-22 [place] 841021-02-16 06:07:00 Test Item Value Reference Range Interpretation Comments Creatinine Lvl (test code = Creatinine 0.77 0.50-1.40 Lvl) [place] 841021-02-16 06:07:00 Test Item Value Reference Range Interpretation Comments Sodium Lvl (test code = Sodium Lvl) 140 135-145 [place] 841021-02-16 06:07:00 Test Item Value Reference Range Interpretation Comments Potassium Lvl (test code = Potassium 4.1 3.5-5.1 Lvl) [place] 841021-02-16 06:07:00 Test Item Value Reference Range Interpretation Comments Chloride Lvl (test code = Chloride Lvl) 108 95-109 [place] 841021-02-16 06:07:00 Test Item Value Reference Range Interpretation Comments CO2 (test code = CO2) 26 24-32 [place] 841021-02-16 06:07:00 Test Item Value Reference Range Interpretation Comments Calcium Lvl (test code = Calcium Lvl) 8.3 8.5-10.5 [place] 841021-02-16 06:07:00 Test Item Value Reference Range Interpretation Comments AGAP (test code = AGAP) 10.1 10.0-20.0 [place] 841021-02-16 06:07:00 Test Item Value Reference Range Interpretation Comments eGFR (test code = eGFR) 81 [place] 841021-02-16 06:07:00 Test Item Value Reference Range Interpretation Comments Magnesium Lvl (test code = Magnesium 2.5 1.8-2.4 Lvl) [place] 841021-02-16 06:07:00 Test Item Value Reference Range Interpretation Comments Phosphorus (test code = Phosphorus) 3.5 2.5-4.5 [place] 789951-02-16 06:07:00 Test Item Value Reference Range Interpretation Comments Segs (test code = Segs) 38.1 45.0-75.0 [place] 789951-02-16 06:07:00 Test Item Value Reference Range Interpretation Comments Lymphocytes (test code = Lymphocytes) 47.4 20.0-40.0 [place] 789951-02-16 06:07:00 Test Item Value Reference Range Interpretation Comments Monocytes (test code = Monocytes) 8.9 2.0-12.0 [facility]aljmiDFWIHSUHJN5672-31-32 06:07:00 Test Item Value Reference Range Interpretation Comments Eosinophils (test code = 4.9 See_Comment [A utomated message] The Eosinophils) system which ge nerated this result tra nsmitted reference range : <=4.0. The reference r mariana was not used to int erpret this result as normal/abnormal . [facility] CenterHecmqsrUNTDQWGKWU2392-65-07 06:07:00 Test Item Value Reference Range Interpretation Comments Basophils (test code = 0.7 See_Comment [Aut omated message] The Basophils) system which ge nerated this result tra nsmitted reference range : <=1.0. The reference r mariana was not used to int erpret this result as normal/abnormal . [facility] CenterUfmwqklPDGARMXTUN2121-68-72 06:07:00 Test Item Value Reference Range Interpretation Comments Neutrophils # (test code = Neutrophils 3.1 1.5-8.1 #) [facility]UmzghvbIOOJLHVINJ4045-34-39 06:07:00 Test Item Value Reference Range Interpretation Comments Lymphocytes # (test code = Lymphocytes 3.8 1.0-5.5 #) [facility] CenterOynujqaNLKFXZYWGC1500-65-33 06:07:00 Test Item Value Reference Range Interpretation Comments Monocytes # (test code 0.7 See_Comment [Aut omated message] The = Monocytes #) system which generated this result tra nsmitted reference range : <=0.8. The reference r mariana was not used to int erpret this result as normal/abnormal . [facility] CenterWqmdgmbPPXWRDTMWB7906-28-26 06:07:00 Test Item Value Reference Range Interpretation Comments Eosinophils # (test code 0.4 See_Comment [A utomated message] The = Eosinophils #) system whic h generated this result tra nsmitted reference range : <=0.5. The reference r mariana was not used to int erpret this result as normal/abnormal . [facility] CenterWfdxurrWECFKHHGZB5279-50-73 06:07:00 Test Item Value Reference Range Interpretation Comments Basophils # (test code 0.1 See_Comment [Aut omated message] The = Basophils #) system which generated this result tra nsmitted reference range : <=0.2. The reference r mariana was not used to int erpret this result as normal/abnormal . [place] 789951-02-16 06:07:00 Test Item Value Reference Range Interpretation Comments WBC (test code = WBC) 8.0 3.7-10.4 [facility] CenterJiotcdhSBEVUKKRMD1849-68-82 06:07:00 Test Item Value Reference Range Interpretation Comments RBC (test code = RBC) 4.11 4.20-5.40 [place] 789951-02-16 06:07:00 Test Item Value Reference Range Interpretation Comments Hgb (test code = Hgb) 12.6 12.0-16.0 [facility] CenterSpguvpdKFACZUHGHR1420-64-19 06:07:00 Test Item Value Reference Range Interpretation Comments Hct (test code = Hct) 37.2 36.0-48.0 [facility] CenterOfketxvXTLSIGVTEB7783-82-41 06:07:00 Test Item Value Reference Range Interpretation Comments MCV (test code = MCV) 90.4 80.0-98.0 [place] 789951-02-16 06:07:00 Test Item Value Reference Range Interpretation Comments MCH (test code = MCH) 30.6 pg 27.0-31.0 [place] 789951-02-16 06:07:00 Test Item Value Reference Range Interpretation Comments MCHC (test code = MCHC) 33.8 32.0-36.0 [facility] CenterRpevsacKICPUGUJXA9949-57-95 06:07:00 Test Item Value Reference Range Interpretation Comments RDW (test code = RDW) 13.3 11.5-14.5 [place] 789951-02-16 06:07:00 Test Item Value Reference Range Interpretation Comments Platelet (test code = Platelet) 278 133-450 [facility] CenterGesvetpXVPKCCHJJU2212-46-72 06:07:00 Test Item Value Reference Range Interpretation Comments MPV (test code = MPV) 8.6 7.4-10.4 [place] 789951-02-16 06:07:00 Test Item Value Reference Range Interpretation Comments PT (test code = PT) 12.5 s 12.0-14.7 [facility] CenterJmywkziAIQZLJNAPR0290-43-99 06:07:00 Test Item Value Reference Range Interpretation Comments INR (test code = INR) 0.94 1 0.85-1.17 [place] 789951-02-16 06:07:00 Test Item Value Reference Range Interpretation Comments PTT (test code = PTT) 47.7 s 22.9-35.8 [facility]annPARATHYROID [id number] 06:07:00 Test Item Value Reference Range Interpretation Comments Ca Ion WB (test code = Ca Ion WB) 1.14 1.05-1.25 [facility] [id number] 06:07:00 Test Item Value Reference Range Interpretation Comments Ca Norm WB (test code = Ca Norm WB) 1.12 1.05-1.25 [facility]annCARDIAC RAJUESR5401-91-37 17:38:00 Test Item Value Reference Range Interpretation Comments Troponin-I (test code no gt See_Comment [Auto mated message] The = Troponin-I) system which g enerated this result transmit lorena reference range : <=0.40. The reference r mariana was not used to interpr et this result as angeline l/abnormal. [facility] HospitalSkzbqeoUANLPVHDUU1105-85-45 22:05:00 Test Item Value Reference Range Interpretation Comments Coronavirus (COVID-19) Not Detected (11/06/20 [place] (test code = 4:05 PM) Coronavirus (COVID-19) [place]) [facility] HospitalPLAYSTUDIOSAC [id number] 21:44:00 Test Item Value Reference Range Interpretation Comments BNP (test code = BNP) 18 [facility]PLAYST[facility]IOSAC [id number] 21:44:00 Test Item Value Reference Range Interpretation Comments Troponin-I (test code no gt See_Comment [Auto mated message] The = Troponin-I) system which g enerated this result transmit lorena reference range : <=0.40. The reference r mariana was not used to interpr et this result as angeline l/abnormal. [facility] [id number] 21:44:00 Test Item Value Reference Range Interpretation Comments Glucose Lvl (test code = Glucose Lvl) 150 70-99 [facility] [id number] 21:44:00 Test Item Value Reference Range Interpretation Comments BUN (test code = BUN) 12 7-22 [facility] [id number] 21:44:00 Test Item Value Reference Range Interpretation Comments Creatinine Lvl (test code = Creatinine 0.73 0.50-1.40 Lvl) [facility]2021-02-14 21:44:00 Test Item Value Reference Range Interpretation Comments Sodium Lvl (test code = Sodium Lvl) 139 135-145 [place] 841021-02-14 21:44:00 Test Item Value Reference Range Interpretation Comments Potassium Lvl (test code = Potassium 4.2 3.5-5.1 Lvl) [place] 841021-02-14 21:44:00 Test Item Value Reference Range Interpretation Comments Chloride Lvl (test code = Chloride Lvl) 108 95-109 [place] 841021-02-14 21:44:00 Test Item Value Reference Range Interpretation Comments CO2 (test code = CO2) 26 24-32 [place] 841021-02-14 21:44:00 Test Item Value Reference Range Interpretation Comments Calcium Lvl (test code = Calcium Lvl) 8.2 8.5-10.5 [place] 841021-02-14 21:44:00 Test Item Value Reference Range Interpretation Comments AGAP (test code = AGAP) 9.2 10.0-20.0 [place] 841021-02-14 21:44:00 Test Item Value Reference Range Interpretation Comments eGFR (test code = eGFR) 86 [place] 841021-02-14 21:44:00 Test Item Value Reference Range Interpretation Comments Magnesium Lvl (test code = Magnesium 2.3 1.8-2.4 Lvl) [place] 841021-02-14 21:44:00 Test Item Value Reference Range Interpretation Comments Phosphorus (test code = Phosphorus) 3.5 2.5-4.5 [place] 841021-02-14 21:44:00 Test Item Value Reference Range Interpretation Comments Total Protein (test code = Total 6.6 6.4-8.4 Protein) [place] 841021-02-14 21:44:00 Test Item Value Reference Range Interpretation Comments Albumin Lvl (test code = Albumin Lvl) 3.3 3.5-5.0 [place] 841021-02-14 21:44:00 Test Item Value Reference Range Interpretation Comments Globulin (test code = Globulin) 3.3 2.7-4.2 [place] 841021-02-14 21:44:00 Test Item Value Reference Range Interpretation Comments A/G Ratio (test code = A/G Ratio) 1.0 1 0.7-1.6 [place] 841021-02-14 21:44:00 Test Item Value Reference Range Interpretation Comments ALT (test code = ALT) 20 See_Comment [Auto mated message] The system which ge nerated this result transmit lorena reference range : <=65. The reference range was not used to interpr et this result as angeline l/abnormal. [facility]Hol[facility] [id number] 21:44:00 Test Item Value Reference Range Interpretation Comments AST (test code = AST) 15 See_Comment [Auto mated message] The system which ge nerated this result transmit lorena reference range : <=37. The reference range was not used to interpr et this result as angeline l/abnormal. [facility]Hol[facility] [id number] 21:44:00 Test Item Value Reference Range Interpretation Comments Alk Phos (test code = Alk Phos) 86 39-136 [facility]Hol[facility] [id number] 21:44:00 Test Item Value Reference Range Interpretation Comments Bili Total (test code = Bili Total) 0.3 0.2-1.3 [facility]Hol[facility] [id number] 21:44:00 Test Item Value Reference Range Interpretation Comments Bili Direct (test code no gt See_Comment [Aut omated message] The = Bili Direct) system which generated this result tra nsmitted reference range : <=0.3. The reference r mariana was not used to int erpret this result as angeline l/abnormal. [facility]Hol[facility] [id number] 21:44:00 Test Item Value Reference Range Interpretation Comments Bili Indirect Unable to See_Comment [Automated (test code = Bili Calculate message] T he system Indirect) which generated this result transmitted reference range : <=1.0. The reference range was not used to interpret this result as normal/abnormal . [facility] TexasLlfuejpEMTQRDMIMP2286-96-13 21:44:00 Test Item Value Reference Range Interpretation Comments WBC (test code = WBC) 8.4 3.7-10.4 [place] 789951-02-14 21:44:00 Test Item Value Reference Range Interpretation Comments RBC (test code = RBC) 4.17 4.20-5.40 [place] 789951-02-14 21:44:00 Test Item Value Reference Range Interpretation Comments Hgb (test code = Hgb) 12.5 12.0-16.0 [facility] CenterZecatiyPOOHXKZMTH1127-75-68 21:44:00 Test Item Value Reference Range Interpretation Comments Hct (test code = Hct) 37.6 36.0-48.0 [facility] CenterHnbomcxKJQFXAHWLB9100-43-23 21:44:00 Test Item Value Reference Range Interpretation Comments MCV (test code = MCV) 90.3 80.0-98.0 [facility] CenterBbgthyoMHJEYZYJDO9835-76-55 21:44:00 Test Item Value Reference Range Interpretation Comments MCH (test code = MCH) 29.9 pg 27.0-31.0 [facility] CenterYukqcynOWOQLUOZWA1530-91-42 21:44:00 Test Item Value Reference Range Interpretation Comments MCHC (test code = MCHC) 33.1 32.0-36.0 [facility] CenterCagqtzcWATRERQMYH3762-55-81 21:44:00 Test Item Value Reference Range Interpretation Comments RDW (test code = RDW) 13.9 11.5-14.5 [facility] CenterVuhoyfeNWHECKRWFW9303-63-22 21:44:00 Test Item Value Reference Range Interpretation Comments Platelet (test code = Platelet) 297 133-450 [facility] CenterNzpbaqdSALLLKMOVD4828-75-68 21:44:00 Test Item Value Reference Range Interpretation Comments MPV (test code = MPV) 7.8 7.4-10.4 [facility] CenterXfhiojpBQAAQMQKRP3587-43-74 21:44:00 Test Item Value Reference Range Interpretation Comments PT (test code = PT) 12.0 s 12.0-14.7 [facility] CenterWrhislhXSFAUJQCMR5233-74-31 21:44:00 Test Item Value Reference Range Interpretation Comments PTT (test code = PTT) 34.8 s 22.9-35.8 [place] 789951-02-14 21:44:00 Test Item Value Reference Range Interpretation Comments INR (test code = INR) 0.89 1 0.85-1.17 [place] 789951-02-14 21:44:00 Test Item Value Reference Range Interpretation Comments Segs (test code = Segs) 49.1 45.0-75.0 [facility] CenterPaeyvbpXUKALPXXMG8094-54-62 21:44:00 Test Item Value Reference Range Interpretation Comments Lymphocytes (test code = Lymphocytes) 38.7 20.0-40.0 [facility] CenterTwzcnayYELKXURALD6098-65-47 21:44:00 Test Item Value Reference Range Interpretation Comments Monocytes (test code = Monocytes) 7.1 2.0-12.0 [facility] CenterVbrqdryUYCBMZJIBA7263-04-58 21:44:00 Test Item Value Reference Range Interpretation Comments Eosinophils (test code = 3.8 See_Comment [A utomated message] The Eosinophils) system which ge nerated this result tra nsmitted reference range : <=4.0. The reference r mariana was not used to int erpret this result as normal/abnormal . [facility] CenterJsaiouiJAYPEBAQPB8866-72-69 21:44:00 Test Item Value Reference Range Interpretation Comments Basophils (test code = 1.3 See_Comment [Aut omated message] The Basophils) system which ge nerated this result tra nsmitted reference range : <=1.0. The reference r mariana was not used to int erpret this result as normal/abnormal . [facility] CenterYbadauqKQKCCGPPMU2596-15-72 21:44:00 Test Item Value Reference Range Interpretation Comments Neutrophils # (test code = Neutrophils 4.1 1.5-8.1 #) [facility] CenterCnjxofzSTJJTTXPIJ8971-72-56 21:44:00 Test Item Value Reference Range Interpretation Comments Lymphocytes # (test code = Lymphocytes 3.2 1.0-5.5 #) [facility] CenterDeborcoRBEKJDKPRX5477-24-46 21:44:00 Test Item Value Reference Range Interpretation Comments Monocytes # (test code 0.6 See_Comment [Aut omated message] The = Monocytes #) system which generated this result tra nsmitted reference range : <=0.8. The reference r mariana was not used to int erpret this result as normal/abnormal . [facility] CenterCssqbjtDWAORXVLPU2726-87-72 21:44:00 Test Item Value Reference Range Interpretation Comments Eosinophils # (test code 0.3 See_Comment [A utomated message] The = Eosinophils #) system whic h generated this result tra nsmitted reference range : <=0.5. The reference r mariana was not used to int erpret this result as normal/abnormal . [facility] CenterAoreqlkQNYSQHDXWV1715-34-62 21:44:00 Test Item Value Reference Range Interpretation Comments Basophils # (test code 0.1 See_Comment [Aut omated message] The = Basophils #) system which generated this result tra nsmitted reference range : <=0.2. The reference r mariana was not used to int erpret this result as normal/abnormal . [facility] TexasWwhotqtJBUXRM2961-69-47 21:44:00 Test Item Value Reference Range Interpretation Comments Trig (test code = Trig) 100 [facility] TexasUgxpsceWXKART8632-28-24 21:44:00 Test Item Value Reference Range Interpretation Comments Chol (test code = Chol) 101 [facility] TexasTrdsddlMDFUKB4791-03-38 21:44:00 Test Item Value Reference Range Interpretation Comments HDL (test code = HDL) 48 [facility] TexasNcielbjGTZFEI5056-17-14 21:44:00 Test Item Value Reference Range Interpretation Comments CHD Risk (test code = CHD Risk) 2.10 1 3.90-5.80 [facility] TexasJbndblsUOSQYQ2254-73-48 21:44:00 Test Item Value Reference Range Interpretation Comments LDL (Calculated) (test code = LDL 33 (Calculated)) [facility] TexasAcmzuymIGAZAY4661-86-93 21:44:00 Test Item Value Reference Range Interpretation Comments VLDL (test code = VLDL) 20 [facility] GKGPVLQQG6208-94-92 21:44:00 Test Item Value Reference Range Interpretation Comments Hgb A1C (test code = Hgb A1C) 7.9 [facility] Auto Differential panel - Grigr1128-06-14 00:00:00 Test Item Value Reference Range Interpretation Comments Leukocytes [#/volume] in Blood 7.9 x10e3/uL 3.4-10.8 by Automated count (test code = 6690-2) Erythrocytes [#/volume] in 4.58 x10e6/uL 3.77-5.28 Blood by Automated count (test code = 789-8) Hemoglobin [Mass/volume] in 13.8 g/dL 11.1-15.9 Blood (test code = 718-7) Hematocrit [Volume Fraction] of 40.8 % 34.0-46.6 Blood by Automated count (test code = 4544-3) Erythrocyte mean corpuscular 89 fL 79-97 volume [Entitic volume] by Automated count (test code = 787-2) Erythrocyte mean corpuscular 30.1 pg 26.6-33.0 hemoglobin [Entitic mass] by Automated count (test code = 785-6) Erythrocyte mean corpuscular 33.8 g/dL 31.5-35.7 hemoglobin concentration [Mass/volume] by Automated count (test code = 786-4) Erythrocyte distribution width 12.7 % 11.7-15.4 [Ratio] by Automated count (test code = 788-0) Platelets [#/volume] in Blood 371 x10e3/uL 150-450 by Automated count (test code = 777-3) Neutrophils/100 leukocytes in 44 % not estab. Blood by Automated count (test code = 770-8) Lymphocytes/100 leukocytes in 41 % not estab. Blood by Automated count (test code = 736-9) Monocytes/100 leukocytes in 9 % not estab. Blood by Automated count (test code = 5905-5) Eosinophils/100 leukocytes in 5 % not estab. Blood by Automated count (test code = 713-8) Basophils/100 leukocytes in 1 % not estab. 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 leukocytes in Blood by Automated count (test code = 87897-1) Immature granulocytes 0.0 x10e3/uL 0.0-0.1 [#/volume] in Blood by Automated count (test code = 89816-4) Nucleated erythrocytes/100 body shop worker leukocytes [Ratio] in Blood by Automated count (test code = 19338-0) Morphology [Interpretation] in body shop worker Blood Narrative (test code = 97545-2) [facility] 2000 [facility] - Serum or [id number] 00:00:00 Test Item Value Reference Range Interpretation Comments Glucose [Mass/volume] in 165 mg/dL 65-99 H Serum or Plasma (test code = 2345-7) Urea nitrogen [Mass/volume] 10 mg/dL 8-27 in Serum or Plasma (test code = 3094-0) Creatinine [Mass/volume] in 0.61 mg/dL 0.57-1.00 Serum or Plasma (test code = 2160-0) Glomerular filtration 95 mL/min/1.73 >59 rate/1.73 sq M.predicted among non-blacks [Volume Rate/Area] in Serum, Plasma or Blood by Creatinine-based formula (CKD-EPI) (test code = 36315-5) Glomerular filtration 109 mL/min/1.73 >59 rate/1.73 sq M.predicted among blacks [Volume Rate/Area] in Serum, Plasma or Blood by Creatinine-based formula (CKD-EPI) (test code = 31735-0) Urea nitrogen/Creatinine 16 12-28 [Mass Ratio] in Serum or Plasma (test code = 3097-3) Sodium [Moles/volume] in 138 mmol/L 134-144 Serum or Plasma (test code = 2951-2) Potassium [Moles/volume] in 4.9 mmol/L 3.5-5.2 Serum or Plasma (test code = 2823-3) Chloride [Moles/volume] in 106 mmol/L 96-106 Serum or Plasma (test code = 2075-0) Carbon dioxide, total 22 mmol/L 20-29 [Moles/volume] in Serum or Plasma (test code = 8-9) Calcium [Mass/volume] in 8.8 mg/dL 8.7-10.3 Serum or Plasma (test code = 32437-0) Protein [Mass/volume] in 6.9 g/dL 6.0-8.5 Serum or Plasma (test code = 2885-2) Albumin [Mass/volume] in 3.8 g/dL 3.8-4.8 Serum or Plasma (test code = 1751-7) Globulin [Mass/volume] in 3.1 g/dL 1.5-4.5 Serum by calculation (test code = 12460-7) Albumin/Globulin [Mass Ratio] 1.2 1.2-2.2 in Serum or Plasma (test code = 1759-0) Bilirubin.total [Mass/volume] 0.5 mg/dL 0.0-1.2 in Serum or Plasma (test code = 1975-2) Alkaline phosphatase 86 IU/L 39-117 [Enzymatic activity/volume] in Serum or Plasma (test code = 6768-6) Aspartate aminotransferase 19 IU/L 0-40 [Enzymatic activity/volume] in Serum or Plasma (test code = 1920-8) Alanine aminotransferase 14 IU/L 0-32 [Enzymatic activity/volume] in Serum or Plasma (test code = 1742-6) [facility] - Serum or [id number] 00:00:00 Test Item Value Reference Range Interpretation Comments Cholesterol [Mass/volume] in Serum 121 mg/dL 100-199 or Plasma (test code = 2093-3) Triglyceride [Mass/volume] in Serum 130 mg/dL 0-149 or Plasma (test code = 2571-8) Cholesterol in HDL [Mass/volume] in 48 mg/dL >39 Serum or Plasma (test code = 2085-9) Cholesterol in VLDL [Mass/volume] 23 mg/dL 5-40 in Serum or Plasma by calculation (test code = 32690-5) Cholesterol in LDL [Mass/volume] in 50 mg/dL 0-99 Serum or Plasma by calculation (test code = 54952-5) Laboratory comment [Text] in Report body shop worker Narrative (test code = 71910-3) [facility]/Creatinine [Mass Ratio] in Urine 2020-10-26 00:00:00 Test Item Value Reference Range Interpretation Comments Creatinine [Mass/volume] in 99.9 mg/dL not estab. Urine (test code = 2161-8) Microalbumin [Mass/volume] in 15.4 ug/mL not estab. Urine (test code = 76056-4) Albumin/Creatinine [Mass ratio] 15 mg/g creat 0-29 in Urine (test code = 9318-7) [facility] [Units/volume] in Serum or Plasma by Detection limit <= 0.005 mIU/[id number] 00:00:00 Test Item Value Reference Range Interpretation Comments Thyrotropin [Units/volume] in 2.190 uIU/mL 0.450-4.500 Serum or Plasma by Detection limit <= 0.005 mIU/L (test code = 62532-9) [facility]Hem[facility] A1c/Hemoglobin.total in Blood 2020-10-26 00:00:00 Test Item Value Reference Range Interpretation Comments Hemoglobin A1c/Hemoglobin.total in 8.6 % 4.8-5.6 H Blood (test code = 4548-4) [facility]landsRAPID INFLUENZA A&B [id number] 10:58:00 Test Item Value Reference Range Interpretation Comments RAPID INFLUENZA A AG (BEAKER) Negative Negative, Inconclusive (test code = 1622) RAPID INFLUENZA B AG (BEAKER) Negative Negative, Inconclusive (test code = 1623)
[2022-08-17] MEDS ORDERED: NA CHLORIDE 0.9% 500 ML ONE (11:18)
[2022-08-17] MEDS ORDERED: NA CHLORIDE 0.9% 1,000 ML ONE (11:18)
[2022-08-17] MEDS ORDERED: FOLIC ACID 5 MG/ML VIAL ONE (11:20)
--- NOTE | 2022-08-17 11:21 | RAD REPORT ---
EXAM DESCRIPTION: CT - Ct Stroke Brain Wo Cont - 08/17/2022 11:09 am CLINICAL HISTORY: Facial numbness COMPARISON: October 2020 TECHNIQUE: Computed axial tomography of the head was obtained. All CT scans are performed using dose optimization technique as appropriate and may include automated exposure control or mA/KV adjustment according to patient size. FINDINGS: An intracranial bleed is not seen . The ventricles are normal in caliber. No extra-axial fluid collection is noted. No significant hypodensity within the brain 17 millimeter lytic lesion left frontal bone with posterior cortical disruption unchanged Fluid within the sinuses/ mastoids is not seen. IMPRESSION: No acute intracranial abnormality is seen. If patient's symptoms persist MRI of the bra in would be recommended. 17 millimeter left frontal bone lytic lesion stable from October 2020. Differential includes plasmac ytoma, easily granuloma and epidermoid. Slow growing metastasis is considered less likely Dr Bernardo of the emergency room was notified at 11:14 a.m. August 17, 2022
--- NOTE | 2022-08-17 11:30 | RAD REPORT ---
EXAM DESCRIPTION: Lyn Single View08/17/2022 11:16 am CLINICAL HISTORY: Cough COMPARISON: 2020 FINDINGS: The lungs appear clear of acute infiltrate. The heart is normal size IMPRESSION: No acute abnormalities displayed
[2022-08-17 11:33] LABS: Urine Blood Negative (Negative); Urine Glucose Negative (Negative); Urine Protein Negative (Negative)
[2022-08-17 11:38] LABS: Absolute Lymphocytes (CBC) 2.6 K/uL (0.7-4.9); Hematocrit 42.7 % (36.0-45.0); Lymphocytes % 35.4 % (15.3-44.8); MCV 91.7 fL (80-100); MPV 7.8 fL (7.6-11.3); RBC Red Blood Cell Count 4.66 M/uL (3.86-4.86)
[2022-08-17 11:40] LABS: Protime INR 0.98
[2022-08-17 11:44] LABS: SARS-CoV-2 Antigen Rapid Res Negative (Negative)
[2022-08-17 11:55] LABS: ALT/SGPT 22 U/L (12-78); AST/SGOT 18 U/L (15-37); Albumin 3.7 g/dL (3.4-5.0); Alkaline Phosphatase 96 U/L (45-117); BUN Blood Urea Nitrogen 13 mg/dL (7-18); Bicarbonate 24 mmol/L (21-32); Bilirubin Direct 0.2 mg/dL (0-0.2); Bilirubin Total 0.6 mg/dL (0.2-1.0); Glomerular Filtration Rate 76 ml/min (=/>90); Glucose Level 120 mg/dL (74-106); Magnesium 2.4 mg/dL (1.8-2.4); NT PRO-BNP 27 pg/mL (<125); Potassium 4.3 mmol/L (3.5-5.1); Sodium Level 136 mmol/L (136-145)
[2022-08-17 12:06] LABS: C-Reactive Protein < 2.90 mg/L (<3.00)
--- NOTE | 2022-08-17 12:50 | RAD REPORT ---
EXAM DESCRIPTION: Malena Angio08/17/2022 12:38 pm CLINICAL HISTORY: Numbness COMPARISON: None TECHNIQUE: 50 cc Isovue 370 was administered intravenously. 3D MIP reconstruction performed All CT scans are performed using dose optimization technique as appropriate and may include automated exposure control or mA/KV adjustment according to patient size. FINDINGS: Mild plaque within the common carotid, internal carotid and external carotid arteries. Vertebral arteries are normal caliber. No significant stenosis. No dissection seen IMPRESSION: Mild plaque within carotid arteries NASCET criteria used. Mild 0-49% stenosis Moderate 50-69% stenosis Severe 70-99% stenosis
--- NOTE | 2022-08-17 12:57 | RAD REPORT ---
EXAM DESCRIPTION: CTHead angio08/17/2022 12:38 pm CLINICAL HISTORY: Numbness COMPARISON: None TECHNIQUE: CT angiogram of the head was obtained. 3D MIPS reconstruction performed. All CT scans are performed using dose optimization technique as appropriate and may include automated exposure control or mA/KV adjustment according to patient size. FINDINGS: The basilar, internal carotid, anterior cerebral, middle cerebral and posterior cerebral a rteries do not demonstrate a significant abnormality An aneurysm is not seen A significant stenosis is not noted. IMPRESSION: No acute abnormality is displayed
--- NOTE | 2022-08-17 13:28 | RAD REPORT ---
EXAM DESCRIPTION: MRI - Brain Wo Cont - 08/17/2022 1:18 pm CLINICAL HISTORY: Numbness COMPARISON: December 2021 MRI TECHNIQUE: Axial, sagittal, and coronal magnetic resonance images of the brain were obtained. FINDINGS: No significant abnormal signal within the brain. 17 millimeter lesion left frontal bone unchanged Diffusion-weighted/ADC mapping does not reveal evidence of acute infarction. The ventricles are normal caliber. An extra-axial fluid collection is not noted. Fluid within the sinuses/mastoids is not seen IMPRESSION: No acute intracranial abnormality noted 17 millimeter lesion left frontal bone unchanged. It may represent a plasmacytoma, eosinophilic granu segundo or epidermoid
--- NOTE | 2022-08-17 13:44 | EDPHYS ---
Physician Documentation [facility] Name: Katerine Izaguirre Age: 66 yrs Sex: Female : 1955 Arrival Date: 08/17/2022 Time: 10:27 Bed 18 Private MD: ED Physician Vijay Bernardo HPI: 08/17 13:36 This 66 yrs old Female presents to ER via Ambulatory with complaints of giovani Numbness Of Face. 13:36 The patient's problem is reported as paresthesias, in left side of face. Onset: The giovani symptoms/episode began/occurred 3 day(s) ago. Duration: The episode is continuous. Context: occurred at home, occurred while the patient was UNKNOWN. The symptoms are alleviated by nothing. The symptoms are aggravated by nothing. Associated signs and symptoms: The patient has no apparent associated signs or symptoms. Severity of symptoms: At their worst the symptoms were mild in the emergency department the symptoms are unchanged. Patient's baseline: Neuro: alert and fully oriented. The patient has experienced similar episodes in the past, several times. Historical: - Allergies: 10:46 Antivert; ss - Home Meds: 10:46 Butalbital Compound 50-325-40 mg Oral tab 1 tab every 4 hours [Active]; Humalog Mix ss 75-25 100 unit/mL (75-25) Sub-Q susp [Active]; lisinopril 2.5 mg Oral tab 1 tab once daily [Active]; rosuvastatin 20 mg Oral tab 1 tab once daily [Active]; topiramate 25 mg Oral tab 1 tabs 2 times per day [Active]; Trulicity subcutaneous [Active]; - PMHx: 10:46 Diabetes - IDDM; Hyperlipidemia; Benign brain tumor; ss - Immunization history:: Client reports having NOT received the Covid vaccine. - Social history:: Smoking status: Patient denies any tobacco usage or history of. - Family history:: not pertinent. - Hospitalizations: : No recent hospitalization is reported. ROS: 13:36 Constitutional: Negative for fever, chills, and weight loss, Eyes: Negative for injury, giovani pain, redness, and discharge, ENT: Negative for injury, pain, and discharge, Neck: Negative for injury, pain, and swelling, Cardiovascular: Negative for chest pain, palpitations, and edema, Respiratory: Negative for shortness of breath, cough, wheezing, and pleuritic chest pain, Abdomen/GI: Negative for abdominal pain, nausea, vomiting, diarrhea, and constipation, Back: Negative for injury and pain, : Negative for injury, bleeding, discharge, and swelling, MS/Extremity: Negative for injury and deformity, Skin: Negative for injury, rash, and discoloration, Psych: Negative for depression, anxiety, suicide ideation, homicidal ideation, and hallucinations, Allergy/Immunology: Negative for hives, rash, and allergies, Endocrine: Negative for neck swelling, polydipsia, polyuria, polyphagia, and marked weight changes, Hematologic/Lymphatic: Negative for swollen nodes, abnormal bleeding, and unusual bruising. 13:36 Neuro: Positive for numbness, of the forehead, left ear and left anglican. Exam: 13:36 Radiologist reports: NAD, NO CHANGES giovani 13:39 Constitutional: This is a well developed, well nourished patient who is awake, alert, giovani and in no acute distress. Head/Face: Normocephalic, atraumatic. Eyes: Pupils equal round and reactive to light, extra-ocular motions intact. Lids and lashes normal. Conjunctiva and sclera are non-icteric and not injected. Cornea within normal limits. Periorbital areas with no swelling, redness, or edema. ENT: Nares patent. No nasal discharge, no septal abnormalities noted. Tympanic membranes are normal and external auditory canals are clear. Oropharynx with no redness, swelling, or masses, exudates, or evidence of obstruction, uvula midline. Mucous membranes moist. Neck: Trachea midline, no thyromegaly or masses palpated, and no cervical lymphadenopathy. Supple, full range of motion without nuchal rigidity, or vertebral point tenderness. No Meningismus. Chest/axilla: Normal chest wall appearance and motion. Nontender with no deformity. No lesions are appreciated. Cardiovascular: Regular rate and rhythm with a normal S1 and S2. No gallops, murmurs, or rubs. Normal PMI, no JVD. No pulse deficits. Respiratory: Lungs have equal breath sounds bilaterally, clear to auscultation and percussion. No rales, rhonchi or wheezes noted. No increased work of breathing, no retractions or nasal flaring. Abdomen/GI: Soft, non-tender, with normal bowel sounds. No distension or tympany. No guarding or rebound. No evidence of tenderness throughout. Back: No spinal tenderness. No costovertebral tenderness. Full range of motion. Skin: Warm, dry with normal turgor. Normal color with no rashes, no lesions, and no evidence of cellulitis. MS/ Extremity: Pulses equal, no cyanosis. Neurovascular intact. Full, normal range of motion. Neuro: Awake and alert, GCS 15, oriented to person, place, time, and situation. Cranial nerves II-XII grossly intact. Motor strength 5/5 in all extremities. Sensory grossly intact. Cerebellar exam normal. Normal gait. Psych: Awake, alert, with orientation to person, place and time. Behavior, mood, and affect are within normal limits. 13:39 ECG was reviewed by the Attending Physician. Vital Signs: 10:43 BP 141 / 58; Pulse 75; Resp 15; Temp 97.5(TE); Pulse Ox 97% on R/A; Weight 103.42 kg; ss Height 5 ft. 3 in. (160.02 cm); Pain 0/10; 11:00 BP 138 / 62; Pulse 78; Resp 16; Pulse Ox 99% on R/A; ko1 10:43 Body Mass Index 40.39 (103.42 kg, 160.02 cm) ss MDM: 10:53 Patient medically screened. giovani 13:39 Differential diagnosis: CVA, TIA, Dementia, paralysis, metabolic disorder. Data giovani reviewed: vital signs, nurses notes, lab test result(s), EKG, radiologic studies, CT scan, MRI. Data interpreted: laboratory monitor: rate is 75 beats/min, rhythm is regular, Pulse oximetry: on room air is 97 %. Test interpretation: by ED physician or midlevel provider: ECG, plain radiologic studies. Counseling: I had a detailed discussion with the patient and/or guardian regarding: the historical points, exam findings, and any diagnostic results supporting the discharge/admit diagnosis, lab results, radiology results, the need for outpatient follow up, for definitive care, a family practitioner, a neurologist. 08/17 10:59 Order name: Basic Metabolic Panel; Complete Time: 13:15 giovani 08/17 10:59 Order name: CBC with Diff; Complete Time: 13:15 giovani 08/17 10:59 Order name: LFT's; Complete Time: 13:15 giovani 08/17 10:59 Order name: Magnesium; Complete Time: 13:15 [facility] 08/17 10:59 Order name: NT PRO-BNP; Complete Time: 13:15 [facility] 08/17 10:59 Order name: PT-INR; Complete Time: 13:15 [facility] 08/17 10:59 Order name: Troponin HS; Complete Time: 13:15 [facility] 08/17 10:59 Order name: XRAY Chest (1 view); Complete Time: 13:15 [facility] 08/17 11:00 Order name: Sed Rate; Complete Time: 13:15 [facility] 08/17 11:00 Order name: CRP; Complete Time: 13:15 [facility] 08/17 11:02 Order name: SARS RAPID; Complete Time: 13:15 [facility] 08/17 11:33 Order name: Urine Dipstick-Ancillary; Complete Time: 13:15 [facility] 08/17 10:59 Order name: EKG; Complete Time: 11:00 [facility] 08/17 10:59 Order name: Cardiac monitoring; Complete Time: 11:20 [facility] 08/17 10:59 Order name: EKG - Nurse/Tech; Complete Time: 11:47 [facility] 08/17 10:59 Order name: IV Saline Lock; Complete Time: 11: [facility] 08/17 10:59 Order name: Labs collected and sent; Complete Time: 11: [facility] 08/17 10:59 Order name: O2 Per Protocol; Complete Time: 11: [facility] 08/17 11:08 Order name: Ct Stroke Brain Wo Cont; Complete Time: 13:35 [facility] 08/17 11:56 Order name: Head angio; Complete Time: 13:15 [facility] 08/17 11:56 Order name: Neck Angio; Complete Time: 13:15 [facility] 08/17 13:19 Order name: Brain Wo Cont; Complete Time: 13:35 [facility] 08/17 10:59 Order name: O2 Sat Monitoring; Complete Time: 11:21 [facility] 08/17 10:59 Order name: Urine Dipstick-Ancillary (obtain specimen); Complete Time: 11:27 [facility] EC:39 Rate is 70 beats/min. Rhythm is regular. QRS Arlee is Normal. WA interval is normal. QRS giovani interval is normal. QT interval is normal. No Q waves. T waves are Normal. No ST changes noted. Clinical impression: NSR w/ Non-specific ST/T Changes and No evidence of ischemia. Interpreted by me. Reviewed by me. Administered Medications: 11: Drug: NS 0.9% 500 ml Route: IV; Rate: bolus; Site: right antecubital; ko1 12:23 Follow up: IV Status: Completed infusion; IV Intake: 500ml ko1 11: Drug: NS 0.9% 1000 ml Route: IV; Rate: 125 ml/hr; Site: right antecubital; ko1 11:26 Drug: foLIC Acid 1 mg Route: IVPB; Site: right antecubital; ko1 12:23 Follow up: Response: No adverse reaction; No change in condition ko1 Disposition Summary: 08/17/22 13:43 Discharge Ordered Location: Home giovani Problem: new giovani Symptoms: have improved giovani Condition: Stable giovani Diagnosis - Abnormal brain scan - 17 MM LEFT FRONTAL BONE LESION, UNCHANGED giovani - Paresthesia of skin - LEFT FACIAL giovani Followup: giovani - With: Private Physician - When: 2 - 3 days - Reason: Recheck today's complaints, Continuance of care, Re-evaluation by your physician Followup: giovani - With: Jamarcus Villalta MD - When: 2 - 3 days - Reason: Recheck today's complaints, Re-evaluation by your physician Discharge Instructions: - Discharge Summary Sheet giovani - Paresthesia giovani - Incidental Abnormal Radiological Finding giovani - Aspirin and Your Heart giovani - Paresthesia, Gceb-yp-Waxt giovani Forms: - Medication Reconciliation Form giovani - Thank You Letter giovani - Antibiotic Education giovani - Prescription Opioid Use giovani Prescriptions: - Fioricet with Codeine 46-942-91-30 mg Oral capsule - take 1 capsule by ORAL route every 4 hours as needed not to exceed 6 capsules cp per 24hrs; 15 capsule; Refills: 0, Product Selection Permitted Signatures: Dispatcher [employer] EDMS Vijay Bernardo MD MD cha Smirch, Shelby, RN RN Kamila Hinton RN RN ko1 Corrections: (The following items were deleted from the chart) 10:47 10:46 Home Meds: metformin 500 mg Oral tab 1 tab 2 times per day; ss ss 10:47 10:46 PMHx: brain lesions,; ss ss 11:27 11:01 C-REACTIVE PROTEIN+C.LAB.BRZ ordered. EDMS EDMS 13:19 11:56 Stroke Protocol ordered. EDMS EDMS
--- NOTE | 2022-08-17 13:44 | ER ---
Nurse's Notes [facility] Name: Katerine Izaguirre Age: 66 yrs Sex: Female : 1955 Arrival Date: 08/17/2022 Time: 10:27 Bed 18 Private MD: Diagnosis: Abnormal brain scan-17 MM LEFT FRONTAL BONE LESION, UNCHANGED;Paresthesia of skin-LEFT FACIAL Presentation: 08/17 10:44 Chief complaint: Patient states: "I've been having small symptoms of mini strokes. I've ss had them in the past because I have a benign tumor. This time, I'm not having any migraines, but I am having numbness and weakness on my Left side. We were traveling yesterday and I started feeling it, so I took some aspirin and it went away. This morning when I got up, I was having my coffee and I can feel it starting again, and its beginning to subside.". Coronavirus screen: Client denies travel out of the [place] in the last 14 days. Ebola Screen: Patient denies exposure to infectious person. Patient denies travel to an Ebola-affected area in the 21 days before illness onset. Initial Sepsis Screen: Does the patient meet any 2 criteria? No. Patient's initial sepsis screen is negative. Does the patient have a suspected source of infection? No. Patient's initial sepsis screen is negative. Risk Assessment: Do you want to hurt yourself or someone else? Patient reports no desire to harm self or others. Onset of symptoms was August 16, 2022 at 12:00. 10:44 Method Of Arrival: Ambulatory 10:44 Acuity: GARIMA 3 ss Historical: - Allergies: 10:46 Antivert; ss - Home Meds: 10:46 Butalbital Compound 50-325-40 mg Oral tab 1 tab every 4 hours [Active]; Humalog Mix ss 75-25 100 unit/mL (75-25) Sub-Q susp [Active]; lisinopril 2.5 mg Oral tab 1 tab once daily [Active]; rosuvastatin 20 mg Oral tab 1 tab once daily [Active]; topiramate 25 mg Oral tab 1 tabs 2 times per day [Active]; Trulicity subcutaneous [Active]; - PMHx: 10:46 Diabetes - IDDM; Hyperlipidemia; Benign brain tumor; ss - Immunization history:: Client reports having NOT received the Covid vaccine. - Social history:: Smoking status: Patient denies any tobacco usage or history of. - Family history:: not pertinent. - Hospitalizations: : No recent hospitalization is reported. Screenin:00 Abuse screen: Denies threats or abuse. Denies injuries from another. Nutritional ko1 screening: No deficits noted. Tuberculosis screening: No symptoms or risk factors identified. Fall Risk None identified. Assessment: 11:00 General: Appears in no apparent distress. comfortable, Behavior is calm, cooperative, ko1 appropriate for age. Pain: Complains of pain in face and left methodist and left ear and forehead. Neuro: No deficits noted. Cardiovascular: No deficits noted. Respiratory: No deficits noted. GI: No deficits noted. : No deficits noted. EENT: No deficits noted. No signs and/or symptoms were reported regarding the EENT system. Derm: No deficits noted. Musculoskeletal: No deficits noted. Vital Signs: 10:43 BP 141 / 58; Pulse 75; Resp 15; Temp 97.5(TE); Pulse Ox 97% on R/A; Weight 103.42 kg; ss Height 5 ft. 3 in. (160.02 cm); Pain 0/10; 11:00 BP 138 / 62; Pulse 78; Resp 16; Pulse Ox 99% on R/A; ko1 10:43 Body Mass Index 40.39 (103.42 kg, 160.02 cm) ss ED Course: 10:27 Patient arrived in ED. jj6 10:46 Triage completed. ss 10:46 Arm band placed on left wrist. ss 10:53 Vijay Bernardo MD is Attending Physician. giovani 11:02 Kamila Gray, RN is Primary Nurse. ko1 11:08 Ct Stroke Brain Wo Cont In Process Unspecified. EDMS 11:18 XRAY Chest (1 view) In Process Unspecified. EDMS 11:27 SARS RAPID Sent. mm9 11:27 Sed Rate Sent. mm9 11:28 Basic Metabolic Panel Sent. mm9 11:28 CBC with Diff Sent. mm9 11:28 LFT's Sent. mm9 11:28 Magnesium Sent. mm9 11:28 NT PRO-BNP Sent. mm9 11:28 PT-INR Sent. mm9 11:28 Troponin HS Sent. mm9 11:28 Initial lab(s) drawn, by wi, sent to lab. Urine collected: clean catch specimen, EKG mm9 done, COVID swab sent to lab. Inserted saline lock: 20 gauge in right antecubital area, using aseptic technique. Blood collected. 11:29 Patient has correct armband on for positive identification. Placed in gown. Bed in low mm9 position. Call light in reach. Side rails up X 1. Warm blanket given. quality assurance monitor chassis on. Pulse ox on. NIBP on. 12:39 Head angio In Process Unspecified. EDMS 12:39 Neck Angio In Process Unspecified. EDMS 13:19 Brain Wo Cont In Process Unspecified. EDMS 13:41 Jamarcus Villalta MD is Referral Physician. giovani 13:44 Vijay Pisano PA is PHCP. cp 14:04 No provider procedures requiring assistance completed. IV discontinued, intact, ko1 bleeding controlled, No redness/swelling at site. Pressure dressing applied. Administered Medications: 11:26 Drug: NS 0.9% 500 ml Route: IV; Rate: bolus; Site: right antecubital; ko1 12:23 Follow up: IV Status: Completed infusion; IV Intake: 500ml ko1 11:26 Drug: NS 0.9% 1000 ml Route: IV; Rate: 125 ml/hr; Site: right antecubital; ko1 11:26 Drug: foLIC Acid 1 mg Route: IVPB; Site: right antecubital; ko1 12:23 Follow up: Response: No adverse reaction; No change in condition ko1 Medication: 11:00 VIS not applicable for this client. ko1 Intake: 12:23 IV: 500ml; Total: 500ml. ko1 Outcome: 13:43 Discharge ordered by . giovani 14:04 Discharged to home ambulatory. ko1 14:04 Condition: good 14:04 Discharge instructions given to patient, Instructed on discharge instructions, follow up and referral plans. medication usage, Demonstrated understanding of instructions, follow-up care, medications, Prescriptions given X 1. 14:07 Patient left the ED. ko1 Signatures: Dispatcher [employer] EDVijay Finney MD MD cha Smirch, Shelby RN RN Vijay Pisano PA PA cp Jeffries, Jennifer jj6 Kamila Gray RN RN Lisa Viramontes mm9 Corrections: (The following items were deleted from the chart) 10:47 10:46 Home Meds: metformin 500 mg Oral tab 1 tab 2 times per day; [facility] 10:47 10:46 PMHx: brain lesions,; [facility] 11:27 11:27 C-REACTIVE PROTEIN+C.LAB.BRZ drawn and sent. mm9 EDMS
[2022-08-17 14:11] VITALS: TEMP 97.5
[2022-08-17 14:12] VITALS: BP 138/62; O2SAT 99
--- NOTE | 2022-08-20 12:56 | EKG ---
Test Date: 2022-08-17 Test Time: 11:42:56 Benefits Sales Consultant: ADRIANO MEASUREMENT RESULTS: Intervals: Rate: 70 NV: 150 QRSD: 122 QT: 422 QTc: 455 [place]: P: 12 NV: 150 QRS: 82 T: 40 INTERPRETIVE STATEMENTS: Normal sinus rhythm Right bundle branch block Abnormal ECG Compared to ECG 03/15/2021 09:05:03 Right bundle-branch block now present Electronically Signed On 08-20-22 12:51:47 DIRECTOR LIFE by Dinh Buckley
== END 2022-08-17 14:07 | disposition home or self-care (01) ==
LOC: ER 10:24
DX: R20.2 Paresthesia of skin (principal); R94.02 Abnormal brain scan; E11.9 Type 2 diabetes mellitus without complications; Z79.4 Long term (current) use of insulin; Z86.011 Personal history of benign neoplasm of the brain; Z88.8 Allergy status to other drugs, medicaments and biological substances; Z20.822 Contact with and (suspected) exposure to COVID-19
CPT/HCPCS: 96361; 93005; 85025; 80048; 36415; 83735; 85610; 80076; 85652; 81003; 84484; 83880; 86140; 70496; 70498; 70450; 71045; 70551; 96374; 99284; 87811; Q9967; J7040; J7030

== ENCOUNTER 2024-10-07 03:57 | Emergency (ER) | payer OTHER ==
[2024-10-07] MEDS ORDERED: NA CHLORIDE 0.9% 1,000 ML ONE (04:54)
[2024-10-07 05:06] LABS: Absolute Basophils 0.1 K/uL (0-0.5); Absolute Eosinophils 0.3 K/uL (0-0.5); Absolute Lymphocytes (CBC) 2.4 K/uL (0.7-4.9); Absolute Monocytes 0.9 K/uL (0.1-1.3); Absolute Neutrophil 6.3 K/uL (1.8-8.0); Basophils % 1.1 % (0-1.3); Eosinophils % 2.7 % (0-4.4); Hematocrit 43.3 % (36.0-45.0); Hemoglobin 14.5 g/dL (12.0-15.0); Lymphocytes % 24.4 % (15.3-44.8); MCHC 33.6 g/dL (32.0-36.0); MCV 92.4 fL (80-100); MPV 8.5 fL (7.6-11.3); Monocytes % 8.8 % (3.3-12.3); Platelets 304 thou/uL (152-406); RBC Red Blood Cell Count 4.68 M/uL (3.86-4.86); Red Cell Distribution Width 13.4 % (12.1-15.2)
[2024-10-07 05:20] LABS: ALT/SGPT 17 U/L (13-56); AST/SGOT 13 U/L (15-37); Albumin 3.2 g/dL (3.4-5.0); Albumin/Globulin Ratio 0.8 (1.1-1.8); Alkaline Phosphatase 96 U/L (45-117); BUN Blood Urea Nitrogen 17 mg/dL (7-18); Bicarbonate 29 mEq/L (21-32); Bilirubin Total 0.4 mg/dL (0.2-1.0); Globulin 4.2 g/dL (2.3-3.5); Glomerular Filtration Rate 94 ml/min (=/>90); Glucose Level 126 mg/dL (74-106); NT PRO-BNP 56 pg/mL (<125); Protein, Total 7.4 g/dL (6.4-8.2); Sodium Level 138 mEq/L (136-145)
[2024-10-07 05:23] LABS: Bilirubin Direct < 0.2 mg/dL (0-0.2); Bilirubin Indirect, Calculated 0.2 mg/dL (0.2-0.8); Troponin High Sensitivity < 3.0 pg/mL (<58.9)
--- NOTE | 2024-10-07 06:36 | RAD REPORT ---
EXAM DESCRIPTION: Chest Single View RadLex: XR CHEST 1 VIEW CLINICAL HISTORY: 69 years Female, CHEST PAIN COMPARISON: 01/22/2024 FINDINGS: Single portable AP upright view of the chest. Cardiac silhouette is not enlarged. There may be mild l eft basilar atelectasis. No other focal consolidation. No pleural effusion or pneumothorax. Stable fixation hardware in the right clavicle. IMPRESSION: Mild left basilar atelectasis. Electronically signed by: Noemi Finney MD 10/07/2024 05:[address] [facility] Due to temporary technical issues with the PACS/SNADEC reporting system, reports are being claudine d by the in-house radiologist without review as a courtesy to ensure prompt reporting the interpreting radiologist is fully responsible for the content of the report. Transcribed Date/Time: 10/07/2024 6:35 AM
--- NOTE | 2024-10-07 06:39 | ER ---
Nurse's Notes [facility] Name: Katerine Millard Age: 69 yrs Sex: Female : 1955 Arrival Date: 10/07/2024 Time: 03:57 Bed 5 Private MD: Diagnosis: Paroxysmal tachycardia, unspecified;Palpitations Presentation: 10/07 04:15 Chief complaint: Patient states: "I woke up because it felt like I was running a race, vc1 felt heart beating in my neck, and felt like I had to throw up.". Coronavirus screen: Client denies travel out of the [place] in the last 14 days. At this time, the client does not indicate any symptoms associated with coronavirus-19. Ebola Screen: Patient negative for fever greater than or equal to 101.5 degrees Fahrenheit, and additional compatible Ebola Virus Disease symptoms Patient denies exposure to infectious person. Patient denies travel to an Ebola-affected area in the 21 days before illness onset. No symptoms or risks identified at this time. Initial Sepsis Screen: Does the patient meet any 2 criteria? No. Patient's initial sepsis screen is negative. Does the patient have a suspected source of infection? No. Patient's initial sepsis screen is negative. Risk Assessment: Do you want to hurt yourself or someone else? Patient reports no desire to harm self or others. Onset of symptoms was October 07, 2024. Care prior to arrival: None. Activity prior to arrival: None. Mechanism of Injury: No Mechanism of Injury. Transition of care: patient was not received from another setting of care. 04:15 Method Of Arrival: Ambulatory vc1 04:15 Acuity: GARIMA 3 vc1 Triage Assessment: 04:19 General: Appears in no apparent distress. comfortable, obese, well groomed, well vc1 developed, well nourished, Behavior is cooperative, appropriate for age. Pain: Denies pain. EENT: No deficits noted. No signs and/or symptoms were reported regarding the EENT system. Neuro: Level of Consciousness is awake, alert, obeys commands, Oriented to person, place, time, situation, Appropriate for age. Cardiovascular: Reports nausea, palpitations, Denies chest pain, shortness of breath, Capillary refill < 3 seconds Patient's skin is warm and dry. Rhythm is sinus rhythm Chest pain is denied. Respiratory: Airway is patent Respiratory effort is even, unlabored, Respiratory pattern is regular, symmetrical. GI: Abdomen is round non-distended, Reports nausea, normal bowel habits. : No deficits noted. No signs and/or symptoms were reported regarding the genitourinary system. Derm: Skin is intact, is healthy with good turgor, Skin is dry, Skin is normal, Skin temperature is warm. Musculoskeletal: Circulation, motion, and sensation intact. Range of motion: intact in all extremities. Historical: - Allergies: 04:17 Antivert; vc1 - PMHx: :17 Benign Brain Tumor; Diabetes - IDDM; Hyperlipidemia; vc1 - PSHx: :17 section; Total abdominal hysterectomy; Cholecystectomy; vc1 - Immunization history:: Client reports having NOT received the Covid vaccine. Flu vaccine is not up to date. - Infectious Disease History:: Denies. - Social history:: Smoking status: Patient reports the use of cigarette tobacco products, smokes one-half pack cigarettes per day. - Family history:: not pertinent. Screenin:17 [facility] ED Fall Risk Assessment (Adult) History of falling in the last 3 months, vc1 including since admission No falls in past 3 months (0 pts) Confusion or Disorientation No (0 pts) Intoxicated or Sedated No (0 pts) Impaired Gait No (0 pts) Mobility Assist Device Used No (0 pt) Altered Elimination No (0 pt) Score/Fall Risk Level 0 - 2 = Low Risk Oriented to surroundings, Maintained a safe environment, Educated pt \\T\\ family on fall prevention, incl call for assistance when getting out of bed, Hourly rounding (assess needs \\T\\ fall precautionary measures) done. Abuse screen: Denies threats or abuse. Nutritional screening: No deficits noted. Tuberculosis screening: No symptoms or risk factors identified. Assessment: 05:14 General: Appears in no apparent distress. comfortable, Behavior is calm, cooperative. ay Pain: Denies pain. Neuro: Level of Consciousness is awake, alert, obeys commands, Oriented to person, place, time, situation, Speech is normal. Cardiovascular: Reports nausea, Denies chest pain, vomiting, Capillary refill < 3 seconds Rhythm is regular. Respiratory: Airway is patent Respiratory effort is even, unlabored, Respiratory pattern is regular, symmetrical. GI: Abdomen is round. : No signs and/or symptoms were reported regarding the genitourinary system. EENT: No signs and/or symptoms were reported regarding the EENT system. Derm: No signs and/or symptoms reported regarding the dermatologic system. Musculoskeletal: No signs and/or symptoms reported regarding the musculoskeletal system. 06:34 Reassessment: Patient appears in no apparent distress at this time. Patient is alert, ay oriented x 3, equal unlabored respirations, skin warm/dry/pink. Vital Signs: 04:15 BP 146 / 65; Pulse 66; Resp 18; Temp 97.6; Pulse Ox 100% ; Weight 92.99 kg; Height 5 vc1 ft. 3 in. ; Pain 0/10; 05:00 BP 114 / 61; Pulse 66; Resp 20; Pulse Ox 99% on R/A; ay 06:15 BP 112 / 56; Pulse 64; Resp 20; Pulse Ox 98% on R/A; ay 04:15 Body Mass Index 36.31 (92.99 kg, 160.02 cm) vc1 04:15 Pain Scale: Adult vc1 Barco Coma Score: 05:00 Eye Response: spontaneous(4). Motor Response: obeys commands(6). Verbal Response: ay oriented(5). Total: 15. ED Course: 04:03 Patient arrived in ED. gm2 04:07 Rex Lino MD is Attending Physician. sp4 04:17 Triage completed. vc1 04:17 Arm band placed on right wrist. vc1 04:18 Patient has correct armband on for positive identification. Bed in low position. Call vc1 light in reach. Provided Education on: call light. monitor car operator on. Pulse ox on. NIBP on. 04:27 XRAY Chest (1 view) In Process Unspecified. EDMS 04:37 EKG done, by ED staff. vk 04:41 Emmanuel North, RN is Primary Nurse. ay 04:53 Basic Metabolic Panel Sent. vk 04:53 CBC with Diff Sent. vk 04:53 LFT's Sent. vk 04:53 Magnesium Sent. vk 04:53 NT PRO-BNP Sent. vk 04:53 Troponin HS Sent. vk 04:53 Initial lab(s) drawn, by me, sent to lab. Inserted saline lock: 20 gauge in right vk antecubital area, using aseptic technique. Blood collected. Flushed with 10 mL NS. 06:49 No provider procedures requiring assistance completed. IV discontinued, intact, ay bleeding controlled, No redness/swelling at site. Pressure dressing applied. Administered Medications: 04:58 Drug: NS 0.9% IV 1000 ml IV at 1000 ml once; to be given as a bolus over 60 minutes ay Route: IV; Rate: 1000 ml; Site: right antecubital; 06:51 Follow up: Response: No adverse reaction; IV Status: Completed infusion; IV Intake: ay 300ml Medication: 04:18 VIS not applicable for this client. vc1 Point of Care Testing: Blood Glucose: 04:18 Blood Glucose: 114 mg/dL; vc1 Ranges: Intake: 06:51 IV: 300ml; Total: 300ml. ay Outcome: 06:39 Discharge ordered by MD. mccollum 06:49 Discharged to home ambulatory, ay 06:49 Condition: stable 06:49 Discharge instructions given to patient, Instructed on discharge instructions, follow up and referral plans. Demonstrated understanding of instructions, follow-up care, 06:50 Patient left the ED. ay Signatures: Dispatcher [employer] EDIfrah Figueroa RN RN vc1 Rex Lino MD MD sp4 Tania Bell gm2 Mitra Sommer Awudu RN RN yamila
--- NOTE | 2024-10-07 06:39 | EDPHYS ---
Physician Documentation [facility] Name: Katerine Millard Age: 69 yrs Sex: Female : 1955 Arrival Date: 10/07/2024 Time: 03:57 Bed 5 Private MD: ED Physician Rex Lino HPI: 10/07 04:07 This 69 yrs old Female presents to ER via Unassigned with complaints of FAST sp4 HEART RATE, High Blood Sugar. 04:29 69-year-old female with past medical history of diabetes and coronary artery disease sp4 presents with acute onset of rapid heart rate at home and elevated blood sugar. Patient reported episode of rapid heart rate at home at 1 AM this morning. Denied chest pain. Historical: - Allergies: 04:17 Antivert; vc1 - PMHx: 04:17 Benign Brain Tumor; Diabetes - IDDM; Hyperlipidemia; vc1 - PSHx: 04:17 section; Total abdominal hysterectomy; Cholecystectomy; vc1 - Immunization history:: Client reports having NOT received the Covid vaccine. Flu vaccine is not up to date. - Infectious Disease History:: Denies. - Social history:: Smoking status: Patient reports the use of cigarette tobacco products, smokes one-half pack cigarettes per day. - Family history:: not pertinent. ROS: 04:29 Constitutional: Negative for fever, chills, and weight loss, sp4 04:29 All other systems are negative, 04:32 Constitutional: Negative for fever, chills, and weight loss, positive for rapid heart sp4 rate Exam: 04:29 Constitutional: This is a well developed, well nourished patient who is awake, alert, sp4 and in no acute distress. Head/Face: Normocephalic, atraumatic. Eyes: Pupils equal round and reactive to light, extra-ocular motions intact. Lids and lashes normal. Conjunctiva and sclera are not injected. Cornea within normal limits. Periorbital areas with no swelling, redness, or edema. ENT: Nares patent. No nasal discharge, no septal abnormalities noted. Tympanic membranes are normal and external auditory canals are clear. Oropharynx with no redness, swelling, or masses, exudates, or evidence of obstruction, uvula midline. Mucous membranes moist. Neck: Trachea midline, no thyromegaly or masses palpated, and no cervical lymphadenopathy. Supple, full range of motion without nuchal rigidity, or vertebral point tenderness. Chest/axilla: Normal chest wall appearance and motion. Nontender with no deformity. No lesions are appreciated. Cardiovascular: Regular rate and rhythm with a normal S1 and S2. No gallops, murmurs, or rubs. Normal PMI, no JVD. No pulse deficits. Respiratory: Lungs have equal breath sounds bilaterally, clear to auscultation and percussion. No rales, rhonchi or wheezes noted. No increased work of breathing, no retractions or nasal flaring. Abdomen/GI: Soft, with normal bowel sounds. No distension or tympany. No guarding or rebound. No evidence of tenderness throughout. Back: No spinal tenderness. No costovertebral tenderness. Skin: Warm, dry with normal turgor. Normal color with no rashes, no lesions, and no evidence of cellulitis. MS/ Extremity: Pulses equal, no cyanosis. Neurovascular intact. Full, normal range of motion. Neuro: Awake and alert, GCS 15, oriented to person, place, time, and situation. Cranial nerves II-XII grossly intact. Motor strength 5/5 in all extremities. Sensory grossly intact. Psych: Awake, alert, with orientation to person, place and time. Behavior, mood, and affect are within normal limits 04:29 ECG was reviewed by the Attending Physician. EKG at 0 416 normal sinus rhythm with a right bundle branch Vital Signs: 04:15 BP 146 / 65; Pulse 66; Resp 18; Temp 97.6; Pulse Ox 100% ; Weight 92.99 kg; Height 5 vc1 ft. 3 in. ; Pain 0/10; 05:00 BP 114 / 61; Pulse 66; Resp 20; Pulse Ox 99% on R/A; ay 06:15 BP 112 / 56; Pulse 64; Resp 20; Pulse Ox 98% on R/A; ay 04:15 Body Mass Index 36.31 (92.99 kg, 160.02 cm) vc1 04:15 Pain Scale: Adult vc1 Gurinder Coma Score: 05:00 Eye Response: spontaneous(4). Motor Response: obeys commands(6). Verbal Response: ay oriented(5). Total: 15. MDM: 04:08 Medical Screening Exam initiated sp4 06:34 ED course: EXAM DESCRIPTION: Chest Single View RadLex: XR CHEST 1 VIEW CLINICAL sp4 HISTORY: 69 years Female, CHEST PAIN COMPARISON: 01/22/2024 FINDINGS: Single portable AP upright view of the chest. Cardiac silhouette is not enlarged. There may be mild left basilar atelectasis. No other focal consolidation. No pleural effusion or pneumothorax. Stable fixation hardware in the right clavicle. IMPRESSION: Mild left basilar atelectasis. Electronically signed by: Noemi Finney MD 10/07/2024 05:42 AM. 06:37 Differential diagnosis: DKA, hyperglycemia, hypothyroidism. Data reviewed: vital signs, sp4 nurses notes, lab test result(s), EKG, radiologic studies, plain films. Consideration of Admission/Observation Escalation of care including admission/observation considered. ED course: Workup unremarkable today. Patient stable for discharge home.. 10/07 04:08 Order name: Basic Metabolic Panel; Complete Time: 06:15 sp4 10/07 04:08 Order name: CBC with Diff; Complete Time: 06:15 sp4 10/07 04:08 Order name: LFT's; Complete Time: 06:15 sp4 10/07 04:08 Order name: Magnesium; Complete Time: 06:15 sp4 10/07 04:08 Order name: NT PRO-BNP; Complete Time: 06:15 sp4 10/07 04:08 Order name: Troponin HS; Complete Time: 06:15 sp4 10/07 04:22 Order name: Glucose, Ancillary Testing; Complete Time: 04:39 EDMS 10/07 04:08 Order name: XRAY Chest (1 view) sp4 10/07 04:08 Order name: EKG; Complete Time: 04:08 sp4 10/07 04:08 Order name: Cardiac monitoring; Complete Time: 04:21 sp4 10/07 04:08 Order name: EKG - Nurse/Tech; Complete Time: 04:21 sp4 10/07 04:08 Order name: IV Saline Lock; Complete Time: 04:53 sp4 10/07 04:08 Order name: Labs collected and sent; Complete Time: 04:53 sp4 10/07 04:08 Order name: O2 Per Protocol; Complete Time: 04:21 sp4 10/07 04:08 Order name: O2 Sat Monitoring; Complete Time: 04:21 sp4 EC:16 Rate is 64 beats/min. Rhythm is regular, Normal Sinus Rhythm. QRS [place] is Normal. MT sp4 interval is normal. QRS interval is prolonged. QT interval is normal. No Q waves. T waves are Normal. No ST changes noted. Clinical impression: No evidence of ischemia. Interpreted by me. Reviewed by me. Administered Medications: 04:58 Drug: NS 0.9% IV 1000 ml IV at 1000 ml once; to be given as a bolus over 60 minutes ay Route: IV; Rate: 1000 ml; Site: right antecubital; 06:51 Follow up: Response: No adverse reaction; IV Status: Completed infusion; IV Intake: ay 300ml Point of Care Testing: Blood Glucose: 04:18 Blood Glucose: 114 mg/dL; vc1 Ranges: Critical Glucose Levels:Adult <50 mg/dl or >400 mg/dl <40 mg/dl or >180 mg/dl Disposition Summary: 10/07/24 06:39 Discharge Ordered Notes: Location: Home sp4 Problem: new sp4 Symptoms: have improved sp4 Condition: Stable sp4 Diagnosis - Paroxysmal tachycardia, unspecified sp4 - Palpitations sp4 Followup: sp4 - With: Private Physician - When: 7 - 10 days - Reason: Recheck today's complaints Discharge Instructions: - Discharge Summary Sheet sp4 - Palpitations, Fdwv-of-[id number] sp4 Forms: - Patient Portal Instructions sp4 Signatures: Dispatcher [employer] Ifrah Sam RN RN vc1 Rex Lino MD MD sp4 Emmanuel North RN RN ay
--- NOTE | 2024-10-08 11:53 | EKG ---
Test Date: 2024-10-07 Test Time: 04:16:58 Senior Dot Net Developer: TRACY MEASUREMENT RESULTS: Intervals: Rate: 64 AL: 150 QRSD: 128 QT: 450 QTc: 464 [place]: P: -21 AL: 150 QRS: 55 T: 31 INTERPRETIVE STATEMENTS: Normal sinus rhythm Right bundle branch block Abnormal ECG No previous ECG available for comparison Electronically Signed On 10-08-24 11:52:28 INK PRINTER by Boy Monique
[2024-10-09 02:00] VITALS: BP 112/56; TEMP 97.6; O2SAT 98
== END 2024-10-07 06:50 | disposition home or self-care (01) ==
LOC: ER 03:57
DX: I47.9 Paroxysmal tachycardia, unspecified (principal); R00.2 Palpitations; E78.5 Hyperlipidemia, unspecified; D49.6 Neoplasm of unspecified behavior of brain; E11.8 Type 2 diabetes mellitus with unspecified complications; F17.210 Nicotine dependence, cigarettes, uncomplicated; Z79.4 Long term (current) use of insulin
CPT/HCPCS: 96361; 93005; 85025; 80048; 36415; 83735; 82947; 80076; 84484; 83880; 71045; 96360; 99285; J7030

== ENCOUNTER 2025-01-15 08:49 | Emergency (ER) | payer OTHER ==
--- NOTE | 2025-01-15 10:33 | RAD REPORT ---
EXAMINATION: CT HEAD WITHOUT CONTRAST CT CERVICAL SPINE WITHOUT CONTRAST CLINICAL INDICATION: Head and neck injury status post fall. Head and neck pain TECHNIQUE: Axial CT images from the skull base to the vertex without intravenous contrast. Axial CT i mages through the cervical spine were obtained without intravenous contrast. Sagittal and coronal reformatted images were created from the data set. Coronal and sagittal reformatted images were creat ed from the data set. One or more of the following dose reduction techniques were used: Automated exposure control, adjustment of the mA and/or kV according to patient size, and/or iterative reconstr uction. Unless otherwise specified, incidental findings do not require dedicated imaging follow-up. [id number]. Comparison: [address] FINDINGS: An intracranial bleed is not seen. Ventricles are normal in caliber. No significant hypodensity within the brain No extra-axial fluid collection. No fluid within the sinuses/mastoids No fracture or dislocation is seen involving the cervical spine. Spondylosis cervical spine results in mild to moderate central spinal stenosis. IMPRESSION: No acute intracranial abnormality noted A cervical fracture is not seen. If the patient continues to have symptoms to suggest significant INTERACTIVE PROJECT MANAGER/spinal pathology then MRI would be recommended
[2025-01-15] MEDS ORDERED: NA CHLORIDE 0.9% 1,000 ML ONE (10:35)
--- NOTE | 2025-01-15 10:50 | RAD REPORT ---
EXAM: CT CHEST, ABDOMEN AND PELVIS WITHOUT CONTRAST CLINICAL INDICATION: Chest and abdominal pain status post fall TECHNIQUE: CT chest, abdomen and pelvis was performed, without IV contrast, as per department protoco l. Axial, sagittal and coronal reconstructions were obtained. One or more of the following dose reduction techniques were used: Automated exposure control, adjustment of the mA and/or kV according to the patient size, and/or iterative reconstruction. Unless otherwise specified, incidental findings do not require dedicated imaging follow-up. The lack of IV and oral contrast limits evaluation of the mediastinum, najma, vessels, organs and nicole l. COMPARISON: 2020 FINDINGS: No pulmonary contusion. A mediastinal hematoma is not seen. No pleural effusion. No pericardial effusion. Liver, spleen, pancreas, adrenals kidneys and bladder do not demonstrate a traumatic injury. Cholecystectomy. Normal appendix. There is no evidence of diverticulitis IMPRESSION: No acute traumatic injury involving the chest/abdomen pelvis seen
[2025-01-15 10:58] LABS: Absolute Basophils 0.1 K/uL (0-0.5); Absolute Eosinophils 0.3 K/uL (0-0.5); Absolute Monocytes 0.8 K/uL (0.1-1.3); Absolute Neutrophil 4.8 K/uL (1.8-8.0); Basophils % 1.1 % (0-1.3); Eosinophils % 3.8 % (0-4.4); Hematocrit 42.9 % (36.0-45.0); Hemoglobin 14.6 g/dL (12.0-15.0); Lymphocytes % 33.8 % (15.3-44.8); MCH 31.4 pg (27.0-35.0); MCV 92.4 fL (80-100); MPV 7.8 fL (7.6-11.3); Monocytes % 8.5 % (3.3-12.3); Neutrophils % 52.8 % (41.7-73.7); Nucleated Red Blood Cells % 0.1 % (0-0); Platelets 317 thou/uL (152-406); RBC Red Blood Cell Count 4.64 M/uL (3.86-4.86); Red Cell Distribution Width 14.3 % (12.1-15.2)
[2025-01-15 11:08] LABS: Specific Gravity 1.005 (1.005-1.030); Urine Bilirubin NEGATIVE (Negative); Urine Blood Negative (Negative); Urine Clarity Clear (Clear); Urine Color Colorless (Yellow); Urine Glucose NEGATIVE (Negative); Urine Ketones NEGATIVE (Negative); Urine Microscopic Reflex YN NO UMIC; Urine Nitrite NEGATIVE (Negative); Urine Protein NEGATIVE (Negative); Urine Urobilinogen Normal (Normal); Urine pH 5.5 (5.0-7.0)
[2025-01-15 11:16] LABS: Albumin 3.5 g/dL (3.4-5.0); Albumin/Globulin Ratio 0.8 (1.1-1.8); Anion Gap 5.3 mEq/L (5.0-15.0); Bilirubin Total 0.4 mg/dL (0.2-1.0); Globulin 4.2 g/dL (2.3-3.5); Potassium 4.3 mEq/L (3.5-5.1); Protein, Total 7.7 g/dL (6.4-8.2)
--- NOTE | 2025-01-15 12:55 | EDPHYS ---
Physician Documentation [facility] Name: Katerine Millard Age: 69 yrs Sex: Female : 1955 Arrival Date: 01/15/2025 Time: 08:49 Bed 5 Private MD: ED Physician Vijay Bernardo HPI: 01/15 12:48 This 69 yrs old Female presents to ER via Ambulatory with complaints of Fall giovani Injury, Lower Back Pain. 12:48 Details of fall: The patient fell from an upright position, while standing. Onset: The giovani symptoms/episode began/occurred just prior to arrival. Associated injuries: The patient sustained neck injury, upper back injury, injury to the low back. Severity of symptoms: At their worst the symptoms were mild, in the emergency department the symptoms are unchanged. The patient has not experienced similar symptoms in the past. Historical: - Allergies: 09:16 Antivert; ap3 - PMHx: 09:16 Benign Brain Tumor; Diabetes - IDDM; Hyperlipidemia; ap3 - PSHx: 09:16 section; Cholecystectomy; Total abdominal hysterectomy; ap3 - Immunization history:: Client reports having NOT received the Covid vaccine. Flu vaccine is not up to date. - Infectious Disease History:: Denies. - Social history:: Smoking status: Patient reports the use of cigarette tobacco products, smokes one-half pack cigarettes per day. ROS: 12:49 Constitutional: Negative for fever, chills, and weight loss, Eyes: Negative for injury, giovani pain, redness, and discharge, ENT: Negative for injury, pain, and discharge, Neck: Negative for injury, pain, and swelling, Cardiovascular: Negative for chest pain, palpitations, and edema, Respiratory: Negative for shortness of breath, cough, wheezing, and pleuritic chest pain, Abdomen/GI: Negative for abdominal pain, nausea, vomiting, diarrhea, and constipation, : Negative for injury, bleeding, discharge, and swelling, MS/Extremity: Negative for injury and deformity, Skin: Negative for injury, rash, and discoloration, Neuro: Negative for headache, weakness, numbness, tingling, and seizure, Psych: Negative for depression, anxiety, suicide ideation, homicidal ideation, and hallucinations, Allergy/Immunology: Negative for hives, rash, and allergies, Endocrine: Negative for neck swelling, polydipsia, polyuria, polyphagia, and marked weight changes, 12:49 Back: Positive for injury or acute deformity, decreased range of motion, pain at rest, pain with movement, flank pain, Exam: 12:49 Constitutional: This is a well developed, well nourished patient who is awake, alert, giovani and in no acute distress. Head/Face: Normocephalic, atraumatic. Eyes: Pupils equal round and reactive to light, extra-ocular motions intact. Lids and lashes normal. Conjunctiva and sclera are non-icteric and not injected. Cornea within normal limits. Periorbital areas with no swelling, redness, or edema. ENT: Nares patent. No nasal discharge, no septal abnormalities noted. Tympanic membranes are normal and external auditory canals are clear. Oropharynx with no redness, swelling, or masses, exudates, or evidence of obstruction, uvula midline. Mucous membranes moist. Neck: Trachea midline, no thyromegaly or masses palpated, and no cervical lymphadenopathy. Supple, full range of motion without nuchal rigidity, or vertebral point tenderness. No Meningismus. Chest/axilla: Normal chest wall appearance and motion. Nontender with no deformity. No lesions are appreciated. Cardiovascular: Regular rate and rhythm with a normal S1 and S2. No gallops, murmurs, or rubs. Normal PMI, no JVD. No pulse deficits. Respiratory: Lungs have equal breath sounds bilaterally, clear to auscultation and percussion. No rales, rhonchi or wheezes noted. No increased work of breathing, no retractions or nasal flaring. Abdomen/GI: Soft, non-tender, with normal bowel sounds. No distension or tympany. No guarding or rebound. No evidence of tenderness throughout. Female : Normal external genitalia. Skin: Warm, dry with normal turgor. Normal color with no rashes, no lesions, and no evidence of cellulitis. MS/ Extremity: Pulses equal, no cyanosis. Neurovascular intact. Full, normal range of motion., bilateral aka Neuro: Awake and alert, GCS 15, oriented to person, place, time, and situation. Cranial nerves II-XII grossly intact. Motor strength 5/5 in all extremities. Sensory grossly intact. Cerebellar exam normal. Normal gait. Psych: Awake, alert, with orientation to person, place and time. Behavior, mood, and affect are within normal limits. 12:49 Back: pain, that is mild, ROM is normal, normal spinal alignment noted, CVA tenderness, is absent, vertebral tenderness, is not appreciated, 12:49 Musculoskeletal/extremity: ROM: full active range of motion, full passive range of motion, Circulation is intact in all extremities. Sensation intact. Compartment Syndrome exam of affected extremity: is normal. Vital Signs: 09:14 BP 123 / 72; Pulse 79; Resp 18; Temp 98.4(O); Pulse Ox 98% ; Weight 92.99 kg; Height 5 ap3 ft. 3 in. ; Pain 8/10; 09:14 Body Mass Index 36.31 (92.99 kg, 160.02 cm) ap3 09:14 Pain Scale: Adult ap3 MDM: 09:19 Medical Screening Exam initiated giovani 12:50 Differential diagnosis: chronic back pain, Fatigue Fracture Obesity Pyelonephritis giovani Renal Infarction ruptured disc, spinal injury, sprain, Ureterolithiasis vertebral fracture. Differential diagnosis: abrasion, closed head injury, contusion, fracture, multiple trauma, sprain, strain. Data reviewed: vital signs, nurses notes, lab test result(s), radiologic studies, CT scan. Consideration of Admission/Observation Escalation of care including admission/observation considered. I considered the following discharge prescriptions or medication management in the emergency department Medications were administered in the Emergency Department. See MAR. Independent interpretation of the following test(s) in the Emergency Department CT Scan: My interpretation is ct trauma. Test considered but Not performed: Labs: . Historians other than the Patient: Spouse/Significant Other: well informed. Care significantly affected by the following chronic conditions: Diabetes, Hypertension, Obesity, Cancer. 01/15 09:56 Order name: CBC with Diff; Complete Time: 12:42 [facility] 01/15 09:56 Order name: CMP; Complete Time: 12:42 [facility] 01/15 09:56 Order name: Urinalysis w/ reflexes; Complete Time: 12:42 giovani 01/15 10:00 Order name: Chest Abd Pelvis Wo Con; Complete Time: 12:42 EDMS 01/15 10:00 Order name: Head C Spine Mpr Wo Con; Complete Time: 12:42 EDMS Administered Medications: 10:49 Drug: NS 0.9% IV 1000 ml IV at 1 bolus Per protocol; to be given as a bolus over 60 ld1 minutes Route: IV; Rate: 1 bolus; Site: left antecubital; 13:00 Drug: Ketorolac IVP 30 mg IVP once Route: IVP; Site: left antecubital; jl7 13:00 Drug: Diazepam PO 10 mg PO once Route: PO; jl7 13:00 Drug: Hydrocodone-Acetaminophen PO (7.5 mg-325 mg) 1 tabs PO once Route: PO; jl7 13:20 Drug: Ondansetron Oral Disintegrating Tablet Oral Disintegrating Tablet 4 mg PO once jl7 Route: PO; Disposition Summary: 01/15/25 12:55 Discharge Ordered Notes: Location: Home giovani Problem: new giovani Symptoms: have improved giovani Condition: Stable giovani Diagnosis - Fall on same level, unspecified giovani - Contusion of lower back and pelvis giovani - Unspecified symptoms and signs involving the musculoskeletal system giovani Followup: giovani - With: Private Physician - When: 2 - 3 days - Reason: Recheck today's complaints, Re-evaluation by your physician Discharge Instructions: - Discharge Summary Sheet giovani - Fall Prevention in the Home, Adult giovani - Musculoskeletal Pain giovani - Fall Prevention in the Home, Adult, [id number] [facility] Forms: - Medication Reconciliation Form giovani - Antibiotic Education giovani - Prescription Opioid Use giovani - Patient Portal Instructions [facility] - Leadership Thank You Letter [facility] Prescriptions: - Ibuprofen 600 mg Oral Tablet - take 1 tablet ORAL route every 6 hours As needed take with food; 30 tablet; giovani Refills: 0, Product Selection Permitted - methocarbamol 750 mg Oral tablet - take 1 tablet ORAL route every 6 hours; 28 tablet; Refills: 0, Product [facility] Selection Permitted Signatures: Dispatcher [employer] EDVijay Finney MD MD cha Leal, Jahala RN RN jl7 Do Miguel RN RN ap3 Gretel Dave RN RN ld1 Corrections: (The following items were deleted from the chart) 09:58 09:56 Head C Spine Cap Wo Con+[id number].[email or web address].BRZ ordered. EDMS ALONSO
--- NOTE | 2025-01-15 12:55 | ER ---
Nurse's Notes [facility] Name: Katerine Millard Age: 69 yrs Sex: Female : 1955 Arrival Date: 01/15/2025 Time: 08:49 Bed 5 Private MD: Diagnosis: Fall on same level, unspecified;Contusion of lower back and pelvis;Unspecified symptoms and signs involving the musculoskeletal system Presentation: 01/15 09:14 Chief complaint: Patient states: she fell a couple of days ago and hit her left lower ap3 back on a soft chair. patient currently rates her pain as an 8/10 on the pain scale. Coronavirus screen: At this time, the client does not indicate any symptoms associated with coronavirus-19. Ebola Screen: No symptoms or risks identified at this time. Initial Sepsis Screen: Does the patient meet any 2 criteria? No. Patient's initial sepsis screen is negative. Does the patient have a suspected source of infection? No. Patient's initial sepsis screen is negative. Risk Assessment: Do you want to hurt yourself or someone else? Patient reports no desire to harm self or others. Onset of symptoms is unknown. 09:14 Method Of Arrival: Ambulatory ap3 09:14 Acuity: GARIMA 4 ap3 Triage Assessment: 09:16 General: Appears in no apparent distress. Behavior is calm, cooperative, appropriate ap3 for age. Pain: Complains of pain in left low back Pain currently is 8 out of 10 on a pain scale. Neuro: Level of Consciousness is awake, alert, obeys commands, Oriented to person, place, time, situation, Appropriate for age. Cardiovascular: Patient's skin is warm and dry. Respiratory: Airway is patent Respiratory effort is even, unlabored, Respiratory pattern is regular, symmetrical. Historical: - Allergies: 09:16 Antivert; ap3 - PMHx: 09:16 Benign Brain Tumor; Diabetes - IDDM; Hyperlipidemia; ap3 - PSHx: 09:16 section; Cholecystectomy; Total abdominal hysterectomy; ap3 - Immunization history:: Client reports having NOT received the Covid vaccine. Flu vaccine is not up to date. - Infectious Disease History:: Denies. - Social history:: Smoking status: Patient reports the use of cigarette tobacco products, smokes one-half pack cigarettes per day. Screenin:[facility] Fall Risk Assessment (Adult) History of falling in the last 3 months, ap3 including since admission Yes- single mechanical fall (1 pt) Confusion or Disorientation No (0 pts) Intoxicated or Sedated No (0 pts) Impaired Gait No (0 pts) Mobility Assist Device Used No (0 pt) Altered Elimination No (0 pt) Score/Fall Risk Level 0 - 2 = Low Risk Oriented to surroundings, Maintained a safe environment, Educated pt \T\ family on fall prevention, incl call for assistance when getting out of bed, Assessed \T\ reinforced patient's understanding of fall precautions, Hourly rounding (assess needs \T\ fall precautionary measures) done, Used ambulatory aids as needed (educated on \T\ assisted with). Abuse screen: Denies threats or abuse. Nutritional screening: No deficits noted. Tuberculosis screening: No symptoms or risk factors identified. Assessment: 11:50 General: Appears in no apparent distress. Behavior is calm, cooperative. Neuro: Level hb of Consciousness is awake, alert, obeys commands, Oriented to person, place, time, situation. Cardiovascular: Patient's skin is warm and dry. Respiratory: Respiratory effort is even, unlabored, Respiratory pattern is regular, symmetrical. GI: No signs and/or symptoms were reported involving the gastrointestinal system. : No signs and/or symptoms were reported regarding the genitourinary system. EENT: No signs and/or symptoms were reported regarding the EENT system. Derm: Skin is pink, warm \T\ dry. Musculoskeletal: Reports low back pain. Vital Signs: 09:14 BP 123 / 72; Pulse 79; Resp 18; Temp 98.4(O); Pulse Ox 98% ; Weight 92.99 kg; Height 5 ap3 ft. 3 in. ; Pain 8/10; 09:14 Body Mass Index 36.31 (92.99 kg, 160.02 cm) ap3 09:14 Pain Scale: Adult ap3 ED Course: 08:53 Patient arrived in ED. cj3 09:16 Triage completed. ap3 09:17 Arm band placed on right wrist. ap3 09:19 Vijay Bernardo MD is Attending Physician. giovani 10:11 Chest Abd Pelvis Wo Con In Process Unspecified. EDMS 10:11 Head C Spine Mpr Wo Con In Process Unspecified. EDMS 10:49 Urinalysis w/ reflexes Sent. ld1 10:49 CMP Sent. ld1 10:49 CBC with Diff Sent. ld1 10:49 Inserted saline lock: 20 gauge in left antecubital area, using aseptic technique. Blood ld1 collected. Flushed with 10 mL NS. 11:45 Pulse ox on. NIBP on. ap3 11:50 Patient has correct armband on for positive identification. Bed in low position. Call hb light in reach. Provided Education on: tests, result times. 12:48 Omid Villeda, RN is Primary Nurse. jl7 Administered Medications: 10:49 Drug: NS 0.9% IV 1000 ml IV at 1 bolus Per protocol; to be given as a bolus over 60 ld1 minutes Route: IV; Rate: 1 bolus; Site: left antecubital; 13:00 Drug: Ketorolac IVP 30 mg IVP once Route: IVP; Site: left antecubital; jl7 13:00 Drug: Diazepam PO 10 mg PO once Route: PO; jl7 13:00 Drug: Hydrocodone-Acetaminophen PO (7.5 mg-325 mg) 1 tabs PO once Route: PO; jl7 13:20 Drug: Ondansetron Oral Disintegrating Tablet Oral Disintegrating Tablet 4 mg PO once jl7 Route: PO; Medication: 11:50 VIS not applicable for this client. hb Outcome: 12:55 Discharge ordered by . giovani 13:21 Patient left the ED. jl7 Signatures: Dispatcher [employer] EDVijay Finney MD MD cha Baxter, Heather, RN RN Omid Villeda, RN KERI jl7 Do Miguel RN RN ap3 Gretel Dave RN RN ld1 Nadeen Carlin 3
[2025-01-15] MEDS ORDERED: KETOROLAC 30 MG/ML INJ ONE (13:02)
[2025-01-15] MEDS ORDERED: ONDANSETRON 4 MG (ODT) TAB ONE (13:03)
[2025-01-15] MEDS ORDERED: HYDROCODONE/APAP 7.5/325 MG TAB ONE (13:03)
[2025-01-15] MEDS ORDERED: DIAZEPAM 5 MG TABLET ONE (13:03)
[2025-01-15 13:32] VITALS: BP 123/72; TEMP 98.4; O2SAT 98
== END 2025-01-15 13:21 | disposition home or self-care (01) ==
LOC: ER 08:49
DX: S30.0XXA Contusion of lower back and pelvis, initial encounter (principal); R29.91 Unspecified symptoms and signs involving the musculoskeletal system; W18.30XA Fall on same level, unspecified, initial encounter; F17.210 Nicotine dependence, cigarettes, uncomplicated
CPT/HCPCS: 85025; 36415; 81003; 80053; 70450; 71250; 72125; 74176; 96374; 99284; Q0162; J7030